=== PATIENT | female | born 1965 | race African-American/Black ===

== ENCOUNTER 2017-09-28 21:16 | Inpatient (IN) | payer MEDICARE ==
[~2017-09-28] VITALS: Ht 170.2 cm; Wt 84.6 kg
[2017-09-28 21:30] VITALS: BP 133/106
[2017-09-28] MEDS ORDERED: Aspirin Baby 81mg ORAL ONE (21:30)
[2017-09-28] MEDS ORDERED: Furosemide 40mg tab ORAL ONE (21:30)
--- NOTE | 2017-09-28 21:48 | Emergency Room Report ---
History of Present Illness General Chief Complaint: Pain Source: Patient, EMS Present Illness HPI Is a 51-year-old female with a history high blood pressure and CHF. She presents with chief complaint of weakness and leg swelling. She said she can't walk because of the swelling. His been ongoing for 4 months. Worse to the point where she can't move around anymore. She was admitted to [facility] recently and transferred [facility] a jail. She was then discharged home. She has not been taking her medication at all. Denies any fever chills. Denies any chest pain. Worse with any bleeding. She refused to take Lasix because it caused her leg to swell up. Pain is 10 out of 10. Allergies: Coded Allergies: No Known Allergies (Unverified , 09/28/17) Patient History Past Medical History: see triage record, old chart reviewed, DM, HTN, CHF Past Surgical History: other Pertinent Family History: none Social History: Denies: smoking Now: No Immunizations: other Reviewed Nursing Documentation: PMH: Agreed; PSxH: Agreed Nursing Documentation-PMH Past Medical History: No History, Except For Hx Cardiac Problems: Yes Hx Hypertension: Yes Review of Systems Eye: Denies: eye pain, blurred vision ENT: Denies: ear pain, nose congestion, throat swelling Respiratory: Denies: cough, shortness of breath Cardiovascular: Denies: chest pain, palpitations Gastrointestinal: Denies: abdominal pain, diarrhea, nausea, vomiting Musculoskeletal: Reports: muscle pain; Denies: back pain, joint pain Skin: Denies: rash Neurological: Denies: headache, numbness Endocrine: Denies: increased thirst, increased urine Hematologic/Lymphatic: Denies: easy bruising All Other Systems: negative except mentioned in HPI Physical Exam Vital Signs Date Time Temp Pulse Resp B/P (MAP) Pulse Ox O2 Delivery O2 Flow Rate FiO2 09/28/17 21:04 98.7 82 14 76/45 98 Room Air 98.8 vitals with hypotension. repeat without intervention was 133/82 Sp02 EP Interpretation: reviewed, normal General Appearance: well appearing, alert, obese Head: normocephalic, atraumatic Eyes: bilateral eye PERRL, bilateral eye EOMI ENT: hearing grossly normal, normal pharynx Neck: full range of motion, supple, no meningismus Respiratory: chest non-tender, lungs clear, normal breath sounds Cardiovascular #1: regular rate, rhythm, no murmur Gastrointestinal: normal bowel sounds, non tender, no mass, no organomegaly, no bruit, non-distended Musculoskeletal: back normal, normal range of motion, swelling - 3+ edema to RLE, 2+ edema to LLE Psychiatric: mood/affect normal Skin: warm/dry Medical Decision Making Diagnostic Impression: Primary Impression: Acute exacerbation of CHF (congestive heart failure) Qualified Codes: I50.9 - Heart failure, unspecified Additional Impressions: Noncompliance Hypertension Qualified Codes: I10 - Essential (primary) hypertension CKD (chronic kidney disease) Qualified Codes: N18.9 - Chronic kidney disease, unspecified Proteinuria Qualified Codes: R80.9 - Proteinuria, unspecified ER Course Patient with CHF exacerbation secondary to noncompliance. I try to convince the patient that her leg swell up because she's not taking Lasix and not the other way around. Patient adamantly refused taking Lasix so I gave her Bumex instead. I also gave her Cardizem to control her blood pressure and heart rate. No evidence of PE, dissection, pneumonia to name a few. She may have coronary event causing worsening CHF. Will admit for further workup and diuresis. I discussed the case with Dr. Mcfadden who will admit for Dr. Lopez Lab Results Impression labs with elevated BNP EKG Diagnostic Results Rate: normal Rhythm: NSR ST Segments: other - NSST changes ASA given to the pt in ED: Yes Rhythm Strip Diag. Results Rhythm Strip Time: 21:47 EP Interpretation: yes Rate: 100 Rhythm: NSR, no PVC's, no ectopy Chest X-Ray Diagnostic Results Chest X-Ray Diagnostic Results : Chest X-Ray Ordered: Yes # of Views/Limited/Complete: 1 View Indication: Shortness of Breath EP Interpretation: Yes Interpretation: no consolidation, no effusion, no pneumothorax, other - CM with chf Impression: Other - CHF Electronically Signed by: Morgan Burnett MD Last Vital Signs Date Time Temp Pulse Resp B/P (MAP) Pulse Ox O2 Delivery O2 Flow Rate FiO2 09/28/17 21:04 98.7 82 14 76/45 98 Room Air 98.8 Status: improved Disposition: ADMITTED INPATIENT Condition: Serious Scripts No Active Prescriptions or Reported Meds MORGAN BURNETT M.D. Sep 28, 2017 21:48
--- NOTE | 2017-09-28 21:59 | Diagnostic Imaging Report ---
EXAM: XR Chest, 1 View CLINICAL HISTORY: SOB TECHNIQUE: Frontal view of the chest. COMPARISON: No relevant prior studies available. FINDINGS: Lungs: Possible right lower lobe infiltrate. Pleural space: Unremarkable. No pneumothorax. Heart: Unremarkable. No cardiomegaly. Mediastinum: Unremarkable. Bones/joints: Unremarkable. IMPRESSION: Possible right lower lobe infiltrate.
[2017-09-28 22:05] LABS: BASOPHILS % (AUTO) 1.3 % (0.0-2.0); EOSINOPHILS % (AUTO) 0.6 % (0.0-3.0); HEMATOCRIT 45.1 % (37.0-47.0); HEMOGLOBIN 14.6 G/DL (12.0-16.0); LYMPHOCYTES % (AUTO) 25.2 % (20.0-45.0); MEAN CORPUSCULAR VOLUME 92 FL (80-99); MONOCYTES % (AUTO) 6.1 % (1.0-10.0); NEUTROPHILS % (AUTO) 66.8 % (45.0-75.0); PLATELET COUNT 236 K/UL (150-450); RED CELL DISTRIBUTION WIDTH 16.4 % (11.6-14.8)
[2017-09-28 22:24] LABS: ANION GAP 12 mmol/L (5-15); BLOOD UREA NITROGEN 22 mg/dL (7-18); CALCIUM 9.7 MG/DL (8.5-10.1); CARBON DIOXIDE 25 MMOL/L (21-32); CHLORIDE 105 MMOL/L (98-107); SODIUM 142 MMOL/L (136-145)
[2017-09-28 22:30] VITALS: BP 157/118
[2017-09-28 22:41] LABS: ALANINE AMINOTRANSFERASE 46 U/L (12-78); ALBUMIN 3.6 G/DL (3.4-5.0); ALKALINE PHOSPHATASE 113 U/L (46-116); ASPARTATE AMINO TRANSFERASE 19 U/L (15-37); CKMB 2.3 NG/ML (0.0-3.6); CREATINE KINASE 142 U/L (26-308)
[2017-09-28 22:43] LABS: BILIRUBIN,DIRECT 0.5 MG/DL (0.0-0.3)
[2017-09-28 22:43] LABS: APPEARANCE,URINE SLIGHTLY CLOUDY; BILIRUBIN, URINE 1+ (NEGATIVE); GLUCOSE, URINE (UA) NEGATIVE (NEGATIVE); KETONES,URINE 2+ (NEGATIVE); LEUKOCYTE ESTERASE ,URINE 1+ (NEGATIVE); NITRITE,URINE NEGATIVE (NEGATIVE); PH,URINE 5 (4.5-8.0); PROTEIN,URINE 3+ (NEGATIVE); UROBILINOGEN,URINE 1 MG/DL (0.0-1.0)
[2017-09-28 22:45] LABS: COLOR,URINE YELLOW
[2017-09-28] MEDS ORDERED: dilTIAZem HCl 25mg/5ml Inj IVP ONE (22:45)
[2017-09-28] MEDS ORDERED: Bumetanide 0.25mg/ml 4ml IV ONE (23:15)
[2017-09-29] VITALS (8 sets, daily range): BP systolic 115–152; BP diastolic 55–115
[2017-09-29] MEDS ORDERED: Norco 5mg/325mg tab ORAL PRN (03:30)
[2017-09-29] MEDS ORDERED: HYDROcodone/Acetamin 10/325 tab ORAL PRN (03:30)
[2017-09-29] MEDS ORDERED: HydrALAZINE 10mg Tab ORAL PRN (03:30)
[2017-09-29] MEDS: NovoLOG Insulin Flexpen SUBQ SCH ×4 (05:43→21:00)
[2017-09-29] MEDS ORDERED: Heparin 5000 units/ml inj SUBQ SCH (09:00)
[2017-09-29] MEDS ORDERED: Bumetanide 2.5mg/10ml Inj IVP SCH (09:00)
[2017-09-29] MEDS: Bumetanide 0.25mg/ml 4ml IV SCH ×2 (09:21→21:00)
--- NOTE | 2017-09-29 11:20 | Cardiology Report ---
APPROVED REPORT EXAM: Two-dimensional and M-mode echocardiogram with Doppler and color Doppler. INDICATION Congestive Heart Failure M-Mode DIMENSIONS IVSd1.2 (0.7-1.1cm)Left Atrium (MM)4.8 (1.6-4.0cm) LVDd5.1 (3.5-5.6cm)Aortic Root2.6 (2.0-3.7cm) PWd1.0 (0.7-1.1cm)Aortic Cusp Exc.1.8 (1.5-2.0cm) LVDs4.6 (2.5-4.0cm) PWs1.1 cm Technically difficult study due to patient resistance. Study quality precludes accurate assessment of regional wall motion. Normal left ventricular chamber size. Increased apical echoes thrombus is not excluded . Severe global left ventricular hypokinesis. Left ventricular ejection fraction estimated to be 25-30 %. Mild left ventricular hypertrophy. Large posterior pleural effusion. Small pericardial effusion. Mild bi-atrial enlargement. Right ventricular chamber sizes is within normal limits. Mild focal aortic valve sclerosis with adequate cusp excursion. Mildly thickened mitral valve leaflets with normal excursion. Mild mitral annulus and aortic root calcification. Normal pulmonic valve structure. Normal tricuspid valve structure. IVC dilated at 2.4 cm without physiological collapse, estimated RAP is 15 mmHg. Doctor and RNVicente notified on 09/29/17. A color flow and spectral Doppler study was performed and revealed: Trace aortic insufficiency. Severe mitral regurgitation. Left ventricular diastolic function could not be determined due to arrhythmia. Severe tricuspid regurgitation. Tricuspid systolic velocities suggests peak right ventricular systolic pressure of 77 mmHg, consistent with severe pulmonary hypertension. Mild pulmonic regurgitation present.
--- NOTE | 2017-09-29 11:36 | Cardiology Progress Note ---
Assessment/Plan Assessment/Plan acute on chronic chf med non complaince increaed apical echo possible lv thrombus htn renal insuf pulm htn mr sig tr sig need na fluid restriction which i discussed iwth pt she dose no want to take lasix in getting bumex will need acie if cr and k allow eventually will need bb once chf is better repeat labs gabe need to consider anticoagulation for now but need to see if she has some way of complyign with fu need for anticoag monitoring otherwise may need to get injectable Lovenox daily needs health inurance for meds she says has one s/w to explore [id number] Objective Last 24 Hour Vital Signs Date Time Temp Pulse Resp B/P (MAP) Pulse Ox O2 Delivery O2 Flow Rate FiO2 09/29/17 09:00 Nasal Cannula 3.0 09/29/17 08:00 107 09/29/17 08:00 97.5 105 22 121/55 (77) 99 97.5 09/29/17 04:00 101 09/29/17 04:00 98.0 100 22 135/110 (118) 98 98.0 09/29/17 03:00 Nasal Cannula 3.0 09/29/17 02:40 111 09/29/17 02:36 97.9 103 24 148/115 (126) 98 97.9 09/29/17 02:35 98.2 99 18 139/105 98 Room Air 98.2 09/29/17 01:30 98.2 99 18 139/105 98 Room Air 98.2 09/29/17 00:30 98.8 96 18 152/114 97 Room Air 98.8 09/28/17 22:54 122 157/119 09/28/17 22:30 98.8 122 18 157/118 97 Room Air 98.8 09/28/17 21:30 98.8 108 18 133/106 96 Room Air 98.8 09/28/17 21:04 98.7 82 14 76/45 98 Room Air 98.8 Intake and Output 09/28/17 09/29/17 19:00 07:00 Output Total 750 ml Balance -750 ml Output Urine Total 750 ml # Voids 1 Laboratory Tests Test 09/28/17 21:40 09/28/17 22:15 09/29/17 04:20 White Blood Count 6.0 K/UL (4.8-10.8) Red Blood Count 4.90 M/UL (4.20-5.40) Hemoglobin 14.6 G/DL (12.0-16.0) Hematocrit 45.1 % (37.0-47.0) Mean Corpuscular Volume 92 FL (80-99) Mean Corpuscular Hemoglobin 29.7 PG (27.0-31.0) Mean Corpuscular Hemoglobin Concent 32.3 G/DL (32.0-36.0) Red Cell Distribution Width 16.4 % (11.6-14.8) H Platelet Count 236 K/UL (150-450) Mean Platelet Volume 7.4 FL (6.5-10.1) Neutrophils (%) (Auto) 66.8 % (45.0-75.0) Lymphocytes (%) (Auto) 25.2 % (20.0-45.0) Monocytes (%) (Auto) 6.1 % (1.0-10.0) Eosinophils (%) (Auto) 0.6 % (0.0-3.0) Basophils (%) (Auto) 1.3 % (0.0-2.0) Sodium Level 142 MMOL/L (136-145) Potassium Level 4.0 MMOL/L (3.5-5.1) Chloride Level 105 MMOL/L (98-107) Carbon Dioxide Level 25 MMOL/L (21-32) Anion Gap 12 mmol/L (5-15) Blood Urea Nitrogen 22 mg/dL (7-18) H Creatinine 2.0 MG/DL (0.55-1.30) H Estimat Glomerular Filtration Rate 26.2 mL/min (>60) Glucose Level 108 MG/DL (74-106) H Calcium Level 9.7 MG/DL (8.5-10.1) Total Bilirubin 2.0 MG/DL (0.2-1.0) H Direct Bilirubin 0.5 MG/DL (0.0-0.3) H Aspartate Amino Transf (AST/SGOT) 19 U/L (15-37) Alanine Aminotransferase (ALT/SGPT) 46 U/L (12-78) Alkaline Phosphatase 113 U/L (46-116) Total Creatine Kinase 142 U/L (26-308) Creatine Kinase MB 2.3 NG/ML (0.0-3.6) Creatine Kinase MB Relative Index 1.6 Troponin I 0.049 ng/mL (0.000-0.056) Pro-B-Type Natriuretic Peptide 3926 pg/mL (0-125) H Total Protein 7.2 G/DL (6.4-8.2) Albumin 3.6 G/DL (3.4-5.0) Globulin 3.6 g/dL Albumin/Globulin Ratio 1.0 (1.0-2.7) Urine Color Yellow Urine Appearance Slightly cloudy Urine pH 5 (4.5-8.0) Urine Specific [place] 1.025 (1.005-1.035) Urine Protein 3+ (NEGATIVE) H Urine Glucose (UA) Negative (NEGATIVE) Urine Ketones 2+ (NEGATIVE) H Urine Occult Blood 3+ (NEGATIVE) H Urine Nitrite Negative (NEGATIVE) Urine Bilirubin 1+ (NEGATIVE) H Urine Ictotest Urine Urobilinogen 1 MG/DL (0.0-1.0) H Urine Leukocyte Esterase 1+ (NEGATIVE) H Urine RBC 2-4 /HPF (0 - 2) H Urine WBC 0-2 /HPF (0 - 2) Urine Squamous Epithelial Cells Few /LPF (NONE/OCC) Urine Amorphous Sediment Many /LPF (NONE) H Urine Bacteria Few /HPF (NONE) Urine Opiates Screen Negative (NEGATIVE) Urine Barbiturates Screen Negative (NEGATIVE) Phencyclidine (PCP) Screen Negative (NEGATIVE) Urine Amphetamines Screen Negative (NEGATIVE) Urine Benzodiazepines Screen Negative (NEGATIVE) Urine Cocaine Screen Negative (NEGATIVE) Urine Marijuana (THC) Screen Negative (NEGATIVE) Phosphorus Level 5.0 MG/DL (2.5-4.9) H Serafin Eagle MD Sep 29, 2017 11:36
[2017-09-29] MEDS ORDERED: Heparin 5000 units/ml inj IV SCH ×2 (11:45→13:30)
[2017-09-29 12:22] LABS: BASOPHILS % (AUTO) 0.5 % (0.0-2.0); EOSINOPHILS % (AUTO) 0.6 % (0.0-3.0); HEMATOCRIT 42.2 % (37.0-47.0); HEMOGLOBIN 13.5 G/DL (12.0-16.0); LYMPHOCYTES % (AUTO) 17.3 % (20.0-45.0); MEAN CORPUSCULAR VOLUME 93 FL (80-99); MONOCYTES % (AUTO) 6.2 % (1.0-10.0); NEUTROPHILS % (AUTO) 75.4 % (45.0-75.0); PLATELET COUNT 234 K/UL (150-450); RED BLOOD COUNT 4.54 M/UL (4.20-5.40); WHITE BLOOD COUNT 6.2 K/UL (4.8-10.8)
[2017-09-29] MEDS: HydrALAZINE 10mg Tab ORAL SCH ×2 (12:23→18:03)
[2017-09-29] MEDS: Imdur 30mg tab ORAL SCH (12:23)
[2017-09-29] MEDS ORDERED: Heparin 25,000u/D5W 500ml 500 ML IV SCH (13:00)
[2017-09-29] MEDS ORDERED: Aspirin Baby 81mg ORAL SCH (13:30)
--- NOTE | 2017-09-29 14:12 | Diagnostic Imaging Report ---
APPROVED REPORT CPT Code: 03248 Present Symptoms Comments: RIGHT LEG PAIN AND SWELLING. RIGHT LEG: Venous imaging reveals a patent deep venous system. There is no evidence of thrombus within the femoral, popliteal or tibial segments. The greater saphenous vein is also within normal limits. Doppler indicates normal spontaneous flow within these segments.
--- NOTE | 2017-09-29 14:24 | History and Physical ---
History of Present Illness General Date patient seen: Sep 29, 2017 Reason for Hospitalization: Pain Present Illness HPI Per ED: Is a 51-year-old female with a history high blood pressure and CHF. She presents with chief complaint of weakness and leg swelling. She said she can't walk because of the swelling. His been ongoing for 4 months. Worse to the point where she can't move around anymore. She was admitted to [facility] recently and transferred to a fdc. She was then discharged home. She has not been taking her medication at all. Denies any fever chills. Denies any chest pain. Worse with any bleeding. She refused to take Lasix because it caused her leg to swell up. Pain is 10 out of 10. Above corroborated with pt. Allergies: Coded Allergies: No Known Allergies (Unverified , 09/28/17) Medication History No Active Prescriptions or Reported Meds Patient History Healthcare decision maker Resuscitation status Full Code Advanced Directive on File Physical Exam Last 24 Hour Vital Signs Date Time Temp Pulse Resp B/P (MAP) Pulse Ox O2 Delivery O2 Flow Rate FiO2 09/29/17 12:23 124/94 09/29/17 12:23 124/94 09/29/17 12:00 97.0 112 22 124/94 (104) 97 97.0 09/29/17 12:00 112 09/29/17 09:00 Nasal Cannula 3.0 09/29/17 08:00 107 09/29/17 08:00 97.5 105 22 121/55 (77) 99 97.5 09/29/17 04:00 101 09/29/17 04:00 98.0 100 22 135/110 (118) 98 98.0 09/29/17 03:00 Nasal Cannula 3.0 09/29/17 02:40 111 09/29/17 02:36 97.9 103 24 148/115 (126) 98 97.9 09/29/17 02:35 98.2 99 18 139/105 98 Room Air 98.2 09/29/17 01:30 98.2 99 18 139/105 98 Room Air 98.2 09/29/17 00:30 98.8 96 18 152/114 97 Room Air 98.8 09/28/17 22:54 122 157/119 09/28/17 22:30 98.8 122 18 157/118 97 Room Air 98.8 09/28/17 21:30 98.8 108 18 133/106 96 Room Air 98.8 09/28/17 21:04 98.7 82 14 76/45 98 Room Air 98.8 Intake and Output 09/28/17 09/29/17 19:00 07:00 Output Total 750 ml Balance -750 ml Output Urine Total 750 ml # Voids 1 Laboratory Tests Test 09/28/17 21:40 09/28/17 22:15 09/29/17 04:20 09/29/17 12:05 White Blood Count 6.0 K/UL (4.8-10.8) 6.2 K/UL (4.8-10.8) Red Blood Count 4.90 M/UL (4.20-5.40) 4.54 M/UL (4.20-5.40) Hemoglobin 14.6 G/DL (12.0-16.0) 13.5 G/DL (12.0-16.0) Hematocrit 45.1 % (37.0-47.0) 42.2 % (37.0-47.0) Mean Corpuscular Volume 92 FL (80-99) 93 FL (80-99) Mean Corpuscular Hemoglobin 29.7 PG (27.0-31.0) 29.7 PG (27.0-31.0) Mean Corpuscular Hemoglobin Concent 32.3 G/DL (32.0-36.0) 32.0 G/DL (32.0-36.0) Red Cell Distribution Width 16.4 % (11.6-14.8) H 16.0 % (11.6-14.8) H Platelet Count 236 K/UL (150-450) 234 K/UL (150-450) Mean Platelet Volume 7.4 FL (6.5-10.1) 7.3 FL (6.5-10.1) Neutrophils (%) (Auto) 66.8 % (45.0-75.0) 75.4 % (45.0-75.0) H Lymphocytes (%) (Auto) 25.2 % (20.0-45.0) 17.3 % (20.0-45.0) L Monocytes (%) (Auto) 6.1 % (1.0-10.0) 6.2 % (1.0-10.0) Eosinophils (%) (Auto) 0.6 % (0.0-3.0) 0.6 % (0.0-3.0) Basophils (%) (Auto) 1.3 % (0.0-2.0) 0.5 % (0.0-2.0) Sodium Level 142 MMOL/L (136-145) Potassium Level 4.0 MMOL/L (3.5-5.1) Chloride Level 105 MMOL/L (98-107) Carbon Dioxide Level 25 MMOL/L (21-32) Anion Gap 12 mmol/L (5-15) Blood Urea Nitrogen 22 mg/dL (7-18) H Creatinine 2.0 MG/DL (0.55-1.30) H Estimat Glomerular Filtration Rate 26.2 mL/min (>60) Glucose Level 108 MG/DL (74-106) H Calcium Level 9.7 MG/DL (8.5-10.1) Total Bilirubin 2.0 MG/DL (0.2-1.0) H Direct Bilirubin 0.5 MG/DL (0.0-0.3) H Aspartate Amino Transf (AST/SGOT) 19 U/L (15-37) Alanine Aminotransferase (ALT/SGPT) 46 U/L (12-78) Alkaline Phosphatase 113 U/L (46-116) Total Creatine Kinase 142 U/L (26-308) Creatine Kinase MB 2.3 NG/ML (0.0-3.6) Creatine Kinase MB Relative Index 1.6 Troponin I 0.049 ng/mL (0.000-0.056) Pro-B-Type Natriuretic Peptide 3926 pg/mL (0-125) H Total Protein 7.2 G/DL (6.4-8.2) Albumin 3.6 G/DL (3.4-5.0) Globulin 3.6 g/dL Albumin/Globulin Ratio 1.0 (1.0-2.7) Urine Color Yellow Urine Appearance Slightly cloudy Urine pH 5 (4.5-8.0) Urine Specific [place] 1.025 (1.005-1.035) Urine Protein 3+ (NEGATIVE) H Urine Glucose (UA) Negative (NEGATIVE) Urine Ketones 2+ (NEGATIVE) H Urine Occult Blood 3+ (NEGATIVE) H Urine Nitrite Negative (NEGATIVE) Urine Bilirubin 1+ (NEGATIVE) H Urine Ictotest Urine Urobilinogen 1 MG/DL (0.0-1.0) H Urine Leukocyte Esterase 1+ (NEGATIVE) H Urine RBC 2-4 /HPF (0 - 2) H Urine WBC 0-2 /HPF (0 - 2) Urine Squamous Epithelial Cells Few /LPF (NONE/OCC) Urine Amorphous Sediment Many /LPF (NONE) H Urine Bacteria Few /HPF (NONE) Urine Opiates Screen Negative (NEGATIVE) Urine Barbiturates Screen Negative (NEGATIVE) Phencyclidine (PCP) Screen Negative (NEGATIVE) Urine Amphetamines Screen Negative (NEGATIVE) Urine Benzodiazepines Screen Negative (NEGATIVE) Urine Cocaine Screen Negative (NEGATIVE) Urine Marijuana (THC) Screen Negative (NEGATIVE) Phosphorus Level 5.0 MG/DL (2.5-4.9) H Activated Partial Thromboplast Time 26 SEC (23-33) Height (Feet): 5 Height (Inches): 7.00 Weight (Pounds): 108 Medications Current Medications Medications (Trade) Dose Ordered Sig/Sonam Route PRN Reason Start Time Stop Time Status Last Admin Dose Admin Acetaminophen (Tylenol) 650 mg Q6HR PRN ORAL Mild Pain (Pain Scale 1-3) 09/29/17 03:30 10/29/17 03:29 09/29/17 12:23 Acetaminophen/ Hydrocodone Bitart ([place] 10/325) 1 tab Q6HR PRN ORAL For Pain 09/29/17 03:30 10/06/17 03:29 Acetaminophen/ Hydrocodone Bitart ([place] 5/325) 1 tab Q6H PRN ORAL For Pain 09/29/17 03:30 10/06/17 03:29 Aspirin (ASA) 81 mg ONCE ORAL 09/29/17 13:30 09/29/17 14:30 09/29/17 13:29 Bumetanide (Bumex) 1 mg Q12HR IV 09/29/17 09:15 10/29/17 09:14 09/29/17 09:21 Dextrose (Dextrose 50%) 25 ml STAT PRN IV Hypoglycemia 09/29/17 03:30 10/29/17 03:29 Dextrose (Dextrose 50%) 50 ml STAT PRN IV Hypoglycemia 09/29/17 03:30 10/29/17 03:29 Heparin Sodium (Porcine) (Heparin 5000 units/ml) 3,000 units ONCE IV 09/29/17 13:30 09/29/17 15:00 Heparin Sodium/ Dextrose 500 ml @ 17.676 mls/ hr adjust per protocol IV 09/29/17 13:00 10/29/17 12:59 Hydralazine HCl (Apresoline) 10 mg Q6HR ORAL 09/29/17 12:00 10/29/17 11:59 09/29/17 12:23 Hydralazine HCl (Apresoline) 10 mg Q6HR PRN ORAL For High Blood Pressure 09/29/17 03:30 10/29/17 03:29 Insulin Aspart (NovoLOG) BEFORE MEALS AND HS SUBQ 09/29/17 06:30 10/29/17 06:29 09/29/17 11:14 Isosorbide Mononitrate (Imdur) 30 mg DAILY ORAL 09/29/17 12:00 10/29/17 11:59 09/29/17 12:23 Metolazone (Zaroxolyn) 2.5 mg DAILY@0830 ORAL 09/30/17 08:30 10/30/17 08:29 Ondansetron HCl (Zofran) 4 mg Q4HR PRN IVP Nausea & Vomiting 09/29/17 03:30 10/29/17 03:29 Assessment/Plan Assessment/Plan #CHF, EF < 30 % - due to med non compliance #increased apical echo possible lv thrombus #KEELY - suspect superimpose on CKD #Pleural effusion - on TTE, due to CHF #Possible RLL PNA - on CXR, ? effusion vs infiltrate #Possible UTI - dirty catch #DM2 #HTN - admit to in pt - cardiology consult - heparin gtt per pharmacy - trend tn/ekg - TTE w/ reduced ef and - diuresis per cards: bumex and metolazone - asa - dilt, imdur - pulm consult - start CAP coverage w/ ceftriaxone and azithro - UTI coverage w/ ceftriaxone - resp & urine cx - supplemental o2 prn - insulin sliding scale achs - dm/cardiac diet - dvt ppx: hep gtt - full code anticipate pt will require in pt mgt x 1-2 days, DC to SNF once stable I spent 68 min on this case and 48 min on counseling and or are coordination time of note may not reflect time of clinical encounter Mejia Ferguson MD Sep 29, 2017 14:24
--- NOTE | 2017-09-29 15:28 | Pulmonology Progress Note ---
Assessment/Plan Assessment/Plan Pulmonary Consultation Note Noted to have Pleural Effusion, CHF HPI Is a 51-year-old female with a history high blood pressure and CHF. She presents with chief complaint of weakness and leg swelling. She said she can't walk because of the swelling. His been ongoing for 4 months. Worse to the point where she can't move around anymore. She was admitted to [facility] recently and transferred to a care home. She was then discharged home. She has not been taking her medication at all. Denies any fever chills. Denies any chest pain. Worse with any bleeding. She refused to take Lasix because it caused her leg to swell up. Pain is 10 out of 10. Above corroborated with pt. Allergies: Coded Allergies: No Known Allergies (Unverified , 09/28/17) Medication History No Active Prescriptions or Reported Meds Patient History Healthcare decision maker Resuscitation status Full Code Advanced Directive on File Physical Exam Last 24 Hour Vital Signs Date Time Temp Pulse Resp B/P (MAP) Pulse Ox O2 Delivery O2 Flow Rate FiO2 09/29/17 12:23 124/94 09/29/17 12:23 124/94 09/29/17 12:00 97.0 112 22 124/94 (104) 97 97.0 09/29/17 12:00 112 09/29/17 09:00 Nasal Cannula 3.0 09/29/17 08:00 107 09/29/17 08:00 97.5 105 22 121/55 (77) 99 97.5 09/29/17 04:00 101 09/29/17 04:00 98.0 100 22 135/110 (118) 98 98.0 09/29/17 03:00 Nasal Cannula 3.0 09/29/17 02:40 111 09/29/17 02:36 97.9 103 24 148/115 (126) 98 97.9 09/29/17 02:35 98.2 99 18 139/105 98 Room Air 98.2 09/29/17 01:30 98.2 99 18 139/105 98 Room Air 98.2 09/29/17 00:30 98.8 96 18 152/114 97 Room Air 98.8 09/28/17 22:54 122 157/119 09/28/17 22:30 98.8 122 18 157/118 97 Room Air 98.8 09/28/17 21:30 98.8 108 18 133/106 96 Room Air 98.8 09/28/17 21:04 98.7 82 14 76/45 98 Room Air 98.8 Intake and Output 09/28/17 09/29/17 19:00 07:00 Output Total 750 ml Balance -750 ml Output Urine Total 750 ml # Voids 1 Laboratory Tests Test 09/28/17 21:40 09/28/17 22:15 09/29/17 04:20 09/29/17 12:05 White Blood Count 6.0 K/UL (4.8-10.8) 6.2 K/UL (4.8-10.8) Red Blood Count 4.90 M/UL (4.20-5.40) 4.54 M/UL (4.20-5.40) Hemoglobin 14.6 G/DL (12.0-16.0) 13.5 G/DL (12.0-16.0) Hematocrit 45.1 % (37.0-47.0) 42.2 % (37.0-47.0) Mean Corpuscular Volume 92 FL (80-99) 93 FL (80-99) Mean Corpuscular Hemoglobin 29.7 PG (27.0-31.0) 29.7 PG (27.0-31.0) Mean Corpuscular Hemoglobin Concent 32.3 G/DL (32.0-36.0) 32.0 G/DL (32.0-36.0) Red Cell Distribution Width 16.4 % (11.6-14.8) H 16.0 % (11.6-14.8) H Platelet Count 236 K/UL (150-450) 234 K/UL (150-450) Mean Platelet Volume 7.4 FL (6.5-10.1) 7.3 FL (6.5-10.1) Neutrophils (%) (Auto) 66.8 % (45.0-75.0) 75.4 % (45.0-75.0) H Lymphocytes (%) (Auto) 25.2 % (20.0-45.0) 17.3 % (20.0-45.0) L Monocytes (%) (Auto) 6.1 % (1.0-10.0) 6.2 % (1.0-10.0) Eosinophils (%) (Auto) 0.6 % (0.0-3.0) 0.6 % (0.0-3.0) Basophils (%) (Auto) 1.3 % (0.0-2.0) 0.5 % (0.0-2.0) Sodium Level 142 MMOL/L (136-145) Potassium Level 4.0 MMOL/L (3.5-5.1) Chloride Level 105 MMOL/L (98-107) Carbon Dioxide Level 25 MMOL/L (21-32) Anion Gap 12 mmol/L (5-15) Blood Urea Nitrogen 22 mg/dL (7-18) H Creatinine 2.0 MG/DL (0.55-1.30) H Estimat Glomerular Filtration Rate 26.2 mL/min (>60) Glucose Level 108 MG/DL (74-106) H Calcium Level 9.7 MG/DL (8.5-10.1) Total Bilirubin 2.0 MG/DL (0.2-1.0) H Direct Bilirubin 0.5 MG/DL (0.0-0.3) H Aspartate Amino Transf (AST/SGOT) 19 U/L (15-37) Alanine Aminotransferase (ALT/SGPT) 46 U/L (12-78) Alkaline Phosphatase 113 U/L (46-116) Total Creatine Kinase 142 U/L (26-308) Creatine Kinase MB 2.3 NG/ML (0.0-3.6) Creatine Kinase MB Relative Index 1.6 Troponin I 0.049 ng/mL (0.000-0.056) Pro-B-Type Natriuretic Peptide 3926 pg/mL (0-125) H Total Protein 7.2 G/DL (6.4-8.2) Albumin 3.6 G/DL (3.4-5.0) Globulin 3.6 g/dL Albumin/Globulin Ratio 1.0 (1.0-2.7) Urine Color Yellow Urine Appearance Slightly cloudy Urine pH 5 (4.5-8.0) Urine Specific [place] 1.025 (1.005-1.035) Urine Protein 3+ (NEGATIVE) H Urine Glucose (UA) Negative (NEGATIVE) Urine Ketones 2+ (NEGATIVE) H Urine Occult Blood 3+ (NEGATIVE) H Urine Nitrite Negative (NEGATIVE) Urine Bilirubin 1+ (NEGATIVE) H Urine Ictotest Urine Urobilinogen 1 MG/DL (0.0-1.0) H Urine Leukocyte Esterase 1+ (NEGATIVE) H Urine RBC 2-4 /HPF (0 - 2) H Urine WBC 0-2 /HPF (0 - 2) Urine Squamous Epithelial Cells Few /LPF (NONE/OCC) Urine Amorphous Sediment Many /LPF (NONE) H Urine Bacteria Few /HPF (NONE) Urine Opiates Screen Negative (NEGATIVE) Urine Barbiturates Screen Negative (NEGATIVE) Phencyclidine (PCP) Screen Negative (NEGATIVE) Urine Amphetamines Screen Negative (NEGATIVE) Urine Benzodiazepines Screen Negative (NEGATIVE) Urine Cocaine Screen Negative (NEGATIVE) Urine Marijuana (THC) Screen Negative (NEGATIVE) Phosphorus Level 5.0 MG/DL (2.5-4.9) H Activated Partial Thromboplast Time 26 SEC (23-33) Height (Feet): 5 Height (Inches): 7.00 Weight (Pounds): 108 Medications Current Medications Medications (Trade) Dose Ordered Sig/Sonam Route PRN Reason Start Time Stop Time Status Last Admin Dose Admin Acetaminophen (Tylenol) 650 mg Q6HR PRN ORAL Mild Pain (Pain Scale 1-3) 09/29/17 03:30 10/29/17 03:29 09/29/17 12:23 Acetaminophen/ Hydrocodone Bitart ([place] 10/325) 1 tab Q6HR PRN ORAL For Pain 09/29/17 03:30 10/06/17 03:29 Acetaminophen/ Hydrocodone Bitart ([place] 5/325) 1 tab Q6H PRN ORAL For Pain 09/29/17 03:30 10/06/17 03:29 Aspirin (ASA) 81 mg ONCE ORAL 09/29/17 13:30 09/29/17 14:30 09/29/17 13:29 Bumetanide (Bumex) 1 mg Q12HR IV 09/29/17 09:15 10/29/17 09:14 09/29/17 09:21 Dextrose (Dextrose 50%) 25 ml STAT PRN IV Hypoglycemia 09/29/17 03:30 10/29/17 03:29 Dextrose (Dextrose 50%) 50 ml STAT PRN IV Hypoglycemia 09/29/17 03:30 10/29/17 03:29 Heparin Sodium (Porcine) (Heparin 5000 units/ml) 3,000 units ONCE IV 09/29/17 13:30 09/29/17 15:00 Heparin Sodium/ Dextrose 500 ml @ 17.676 mls/ hr adjust per protocol IV 09/29/17 13:00 10/29/17 12:59 Hydralazine HCl (Apresoline) 10 mg Q6HR ORAL 09/29/17 12:00 10/29/17 11:59 09/29/17 12:23 Hydralazine HCl (Apresoline) 10 mg Q6HR PRN ORAL For High Blood Pressure 09/29/17 03:30 10/29/17 03:29 Insulin Aspart (NovoLOG) BEFORE MEALS AND HS SUBQ 09/29/17 06:30 10/29/17 06:29 09/29/17 11:14 Isosorbide Mononitrate (Imdur) 30 mg DAILY ORAL 09/29/17 12:00 10/29/17 11:59 09/29/17 12:23 Metolazone (Zaroxolyn) 2.5 mg DAILY@0830 ORAL 09/30/17 08:30 10/30/17 08:29 Ondansetron HCl (Zofran) 4 mg Q4HR PRN IVP Nausea & Vomiting 09/29/17 03:30 10/29/17 03:29 Assessment/Plan Assessment/Plan #CHF, EF < 30 % - due to med non compliance #increased apical echo possible lv thrombus #KEELY - suspect superimpose on CKD #Pleural effusion - on TTE, due to CHF #Possible RLL PNA - on CXR, ? effusion vs infiltrate #Possible UTI - dirty catch #DM2 #HTN - heparin gtt per pharmacy - trend labs/ekg - await TTE - diuresis per cards: bumex and metolazone - Agree CAP coverage w/ ceftriaxone and azithro - resp & urine cx - supplemental o2 prn - insulin sliding scale achs - dm/cardiac diet - dvt ppx: hep gtt - full code - Consider Thoracentesis if effusion does not improve on diuresis Subjective ROS Limited/Unobtainable: No Respiratory: Reports: shortness of breath Allergies: Coded Allergies: No Known Allergies (Unverified , 09/28/17) Objective Last 24 Hour Vital Signs Date Time Temp Pulse Resp B/P (MAP) Pulse Ox O2 Delivery O2 Flow Rate FiO2 09/29/17 12:23 124/94 09/29/17 12:23 124/94 09/29/17 12:00 97.0 112 22 124/94 (104) 97 97.0 09/29/17 12:00 112 09/29/17 09:00 Nasal Cannula 3.0 09/29/17 08:00 107 09/29/17 08:00 97.5 105 22 121/55 (77) 99 97.5 09/29/17 04:00 101 09/29/17 04:00 98.0 100 22 135/110 (118) 98 98.0 09/29/17 03:00 Nasal Cannula 3.0 09/29/17 02:40 111 09/29/17 02:36 97.9 103 24 148/115 (126) 98 97.9 09/29/17 02:35 98.2 99 18 139/105 98 Room Air 98.2 09/29/17 01:30 98.2 99 18 139/105 98 Room Air 98.2 09/29/17 00:30 98.8 96 18 152/114 97 Room Air 98.8 09/28/17 22:54 122 157/119 09/28/17 22:30 98.8 122 18 157/118 97 Room Air 98.8 09/28/17 21:30 98.8 108 18 133/106 96 Room Air 98.8 09/28/17 21:04 98.7 82 14 76/45 98 Room Air 98.8 Intake and Output 09/28/17 09/29/17 19:00 07:00 Output Total 750 ml Balance -750 ml Output Urine Total 750 ml # Voids 1 Laboratory Tests 09/28/17 21:40: White Blood Count 6.0, Red Blood Count 4.90, Hemoglobin 14.6, Hematocrit 45.1, Mean Corpuscular Volume 92, Mean Corpuscular Hemoglobin 29.7, Mean Corpuscular Hemoglobin Concent 32.3, Red Cell Distribution Width 16.4H, Platelet Count 236, Mean Platelet Volume 7.4, Neutrophils (%) (Auto) 66.8, Lymphocytes (%) (Auto) 25.2, Monocytes (%) (Auto) 6.1, Eosinophils (%) (Auto) 0.6, Basophils (%) (Auto ) 1.3, Sodium Level 142, Potassium Level 4.0, Chloride Level 105, Carbon Dioxide Level 25, Anion Gap 12, Blood Urea Nitrogen 22H, Creatinine 2.0H, Estimat Glomerular Filtration Rate 26.2, Glucose Level 108H, Calcium Level 9.7, Total Bilirubin 2.0H, Direct Bilirubin 0.5H, Aspartate Amino Transf (AST/SGOT) 19, Alanine Aminotransferase (ALT/SGPT) 46, Alkaline Phosphatase 113, Total Creatine Kinase 142, Creatine Kinase MB 2.3, Creatine Kinase MB Relative Index 1.6, Troponin I 0.049, Pro-B-Type Natriuretic Peptide 3926H, Total Protein 7.2, Albumin 3.6, Globulin 3.6, Albumin/Globulin Ratio 1.0 09/28/17 22:15: Urine Color Yellow, Urine Appearance Slightly cloudy, Urine pH 5, Urine Specific [place] 1.025, Urine Protein 3+H, Urine Glucose (UA) Negative, Urine Ketones 2+H, Urine Occult Blood 3+H, Urine Nitrite Negative, Urine Bilirubin 1+H , Urine Ictotest , Urine Urobilinogen 1H, Urine Leukocyte Esterase 1+H, Urine RBC 2-4H, Urine WBC 0-2, Urine Squamous Epithelial Cells Few, Urine Amorphous Sediment ManyH, Urine Bacteria Few, Urine Opiates Screen Negative, Urine Barbiturates Screen Negative, Phencyclidine (PCP) Screen Negative, Urine Amphetamines Screen Negative, Urine Benzodiazepines Screen Negative, Urine Cocaine Screen Negative, Urine Marijuana (THC) Screen Negative 09/29/17 04:20: Phosphorus Level 5.0H 09/29/17 12:05: White Blood Count 6.2, Red Blood Count 4.54, Hemoglobin 13.5, Hematocrit 42.2, Mean Corpuscular Volume 93, Mean Corpuscular Hemoglobin 29.7, Mean Corpuscular Hemoglobin Concent 32.0, Red Cell Distribution Width 16.0H, Platelet Count 234, Mean Platelet Volume 7.3, Neutrophils (%) (Auto) 75.4H, Lymphocytes (%) (Auto) 17.3L, Monocytes (%) (Auto) 6.2, Eosinophils (%) (Auto) 0.6, Basophils (%) (Auto ) 0.5, Activated Partial Thromboplast Time 26 Current Medications Medications (Trade) Dose Ordered Sig/Sonam Route PRN Reason Start Time Stop Time Status Last Admin Dose Admin Acetaminophen (Tylenol) 650 mg Q6HR PRN ORAL Mild Pain (Pain Scale 1-3) 09/29/17 03:30 10/29/17 03:29 09/29/17 12:23 Acetaminophen/ Hydrocodone Bitart ([place] 10/325) 1 tab Q6HR PRN ORAL For Pain 09/29/17 03:30 10/06/17 03:29 Acetaminophen/ Hydrocodone Bitart ([place] 5/325) 1 tab Q6H PRN ORAL For Pain 09/29/17 03:30 10/06/17 03:29 Azithromycin 500 mg/Dextrose 275 ml @ 275 mls/hr Q24HRS IV 09/29/17 16:00 10/05/17 16:59 Bumetanide (Bumex) 1 mg Q12HR IV 09/29/17 09:15 10/29/17 09:14 09/29/17 09:21 Ceftriaxone Sodium 1 gm/ Dextrose 55 ml @ 110 mls/hr Q24H IVPB 09/29/17 15:30 10/04/17 15:29 Dextrose (Dextrose 50%) 25 ml STAT PRN IV Hypoglycemia 09/29/17 03:30 10/29/17 03:29 Dextrose (Dextrose 50%) 50 ml STAT PRN IV Hypoglycemia 09/29/17 03:30 10/29/17 03:29 Heparin Sodium/ Dextrose 500 ml @ 17.676 mls/ hr adjust per protocol IV 09/29/17 13:00 10/29/17 12:59 Hydralazine HCl (Apresoline) 10 mg Q6HR ORAL 09/29/17 12:00 10/29/17 11:59 09/29/17 12:23 Hydralazine HCl (Apresoline) 10 mg Q6HR PRN ORAL For High Blood Pressure 09/29/17 03:30 10/29/17 03:29 Insulin Aspart (NovoLOG) BEFORE MEALS AND HS SUBQ 09/29/17 06:30 10/29/17 06:29 09/29/17 11:14 Isosorbide Mononitrate (Imdur) 30 mg DAILY ORAL 09/29/17 12:00 10/29/17 11:59 09/29/17 12:23 Lactobacillus Acidophilus (Culturelle) 1 tab TWICE A DAY ORAL 09/29/17 18:00 10/29/17 17:59 Metolazone (Zaroxolyn) 2.5 mg DAILY@0830 ORAL 09/30/17 08:30 10/30/17 08:29 Ondansetron HCl (Zofran) 4 mg Q4HR PRN IVP Nausea & Vomiting 09/29/17 03:30 10/29/17 03:29 Kofi Kim MD Sep 29, 2017 15:28
[2017-09-29] MEDS: cefTRIAXone 1 GM in D5W 55 ML IVPB SCH (16:09)
[2017-09-29] MEDS: Azithromycin 500 MG in D5W 275 ML IV SCH (16:47)
[2017-09-29 17:07] LABS: ANION GAP 10 mmol/L (5-15); BLOOD UREA NITROGEN 22 mg/dL (7-18); CARBON DIOXIDE 27 MMOL/L (21-32); CHLORIDE 106 MMOL/L (98-107); CREATININE 1.8 MG/DL (0.55-1.30); POTASSIUM 3.5 MMOL/L (3.5-5.1); SODIUM 143 MMOL/L (136-145)
[2017-09-29] MEDS: Lactobacillus-GG tablet ORAL SCH (18:02)
--- NOTE | 2017-09-29 19:30 | Consultation ---
DATE OF CONSULTATION: 09/29/2017 CARDIOLOGY CONSULTATION CONSULTING PHYSICIAN: Serafin Eagle M.D. REFERRING PHYSICIAN: Mejia Ferguson M.D. REASON FOR REFERRAL: Congestive heart failure with possible LV thrombus. HISTORY OF PRESENT ILLNESS: The patient is a 51-year-old female, who apparently has known history of congestive heart failure. Three to four months ago, she was treated at a hospital where they told her that she has had a heart attack. She said that they started her on Lasix. She took the Lasix for a number of months, but she started feeling tightness in her legs, so she has stopped taking it. Over the past 3 or 4 months, she has had increasing amounts of shortness of breath and leg swelling to the point that she is limited in her ambulation even around the house. She does wake up frequently because of shortness of breath. She uses one pillow, but she eventually has to sleep in a sitting position or sit up in a sitting position and not go to sleep. She does have some dizziness and lightheadedness. No chest pain or pressure. There is no palpitation. PAST MEDICAL HISTORY: Positive for history of congestive heart failure, borderline diabetes apparently, high blood pressure, and a questionable history of heart attack. No cancer or stroke. ALLERGIES: She denies any allergies to medications. SOCIAL HISTORY: She does not smoke or drink alcoholic beverages. REVIEW OF SYSTEMS: GASTROINTESTINAL: She denies. GENITOURINARY: She denies. PULMONARY: Negative. CONSTITUTIONAL: Negative. PHYSICAL EXAMINATION: GENERAL: Shows to be a middle-aged female, overweight. She is staying up in bed. LUNGS: Decreased breath sounds noted bilaterally. CARDIAC: Regular rhythm. Tachycardic. No heaves or thrills noted. ABDOMEN: Soft and nontender. Positive bowel sounds. EXTREMITIES: 2+ edema in the lower extremities all the way up to below the knee. NEUROLOGICAL: She is awake, alert, and responsive. LABORATORY DATA: Sodium is 142, potassium 4.0, chloride 105, bicarb 25, BUN of 22, creatinine 2.0, and glucose of 108. Calcium is 9.7 and phosphorus of 5.0. Troponin of 0.049. She had a proBNP of 3900. Albumin of 3.6. Tox screen is negative. Urinalysis negative. Chest x-ray performed in the emergency room shows possible right lower lobe infiltrate. An echocardiogram has been performed, which I personally reviewed, showed ejection fraction of 25% to 30% and global hypokinesis of significant degree. She has got significant mitral and tricuspid regurgitation and pulmonary hypertension in the 70s. ASSESSMENT AND PLAN: 1. Acute on chronic congestive heart failure. 2. Medication noncompliance. 3. Increased apical echoes, possible left ventricle thrombus. 4. Hypertension history. 5. Renal insufficiency. 6. Pulmonary hypertension. 7. Mitral regurgitation, significant. 8. Tricuspid regurgitation, significant. Dr. Ferguson, this patient was seen in cardiac consultation. The patient has acute congestive heart failure. However, it sounds like this is on top of chronic congestive heart failure, known for approximately 3 or 4 months with gradual worsening of the symptoms. Needs sodium fluid restriction, which I discussed with the patient personally. She does not want to take Lasix, but is getting Bumex and does not seem to be having a problem with that. She will need to be on this eventually will need to be on beta-blockers once congestive heart failure is better. Repeat laboratories were ordered. We will need to consider anticoagulation for now, but need to see if she has some kind of a way of compliance with the required treatment necessary for anticoagulation with oral anticoagulants, Coumadin, otherwise, needs to be injected with Lovenox on a daily basis based on her renal function. Serafin Eagle M.D. DR: SANDRINE JOB#: [id number] CC:
[2017-09-30] VITALS: BP 128/97
[2017-09-30 04:00] VITALS: BP 112/77
[2017-09-30] MEDS: HydrALAZINE 10mg Tab ORAL SCH ×4 (06:00→17:47)
[2017-09-30] MEDS: NovoLOG Insulin Flexpen SUBQ SCH ×4 (06:05→20:55)
[2017-09-30 07:12] LABS: ANION GAP 9 mmol/L (5-15); BLOOD UREA NITROGEN 21 mg/dL (7-18); CALCIUM 9.1 MG/DL (8.5-10.1); CARBON DIOXIDE 27 MMOL/L (21-32); CHLORIDE 106 MMOL/L (98-107); POTASSIUM 3.2 MMOL/L (3.5-5.1); SODIUM 142 MMOL/L (136-145)
[2017-09-30 07:14] LABS: EOSINOPHILS % (AUTO) 2.7 % (0.0-3.0); HEMATOCRIT 39.7 % (37.0-47.0); HEMOGLOBIN 12.6 G/DL (12.0-16.0); LYMPHOCYTES % (AUTO) 24.3 % (20.0-45.0); MEAN CORPUSCULAR VOLUME 93 FL (80-99); MONOCYTES % (AUTO) 6.2 % (1.0-10.0); NEUTROPHILS % (AUTO) 65.9 % (45.0-75.0); PLATELET COUNT 212 K/UL (150-450); RED BLOOD COUNT 4.27 M/UL (4.20-5.40); RED CELL DISTRIBUTION WIDTH 16.2 % (11.6-14.8)
[2017-09-30 08:00] VITALS: BP 126/89
[2017-09-30] MEDS: metOLazone 2.5 MG TAB ORAL SCH (08:35)
[2017-09-30] MEDS: Bumetanide 0.25mg/ml 4ml IV SCH ×2 (09:06→21:00)
[2017-09-30] MEDS: Imdur 30mg tab ORAL SCH (09:06)
[2017-09-30] MEDS: Lactobacillus-GG tablet ORAL SCH ×2 (09:06→17:47)
[2017-09-30] MEDS ORDERED: NS 275ml ONE (09:57)
[2017-09-30] MEDS ORDERED: Tubing IV Secondary IV ONE (09:57)
[2017-09-30 11:54] VITALS: BP 119/89
--- NOTE | 2017-09-30 13:17 | Cardiology Progress Note ---
Assessment/Plan Assessment/Plan acute on chronic chf med non complaince increaed apical echo possible lv thrombus htn renal insuf pulm htn mr sig tr sig nsvt need na fluid restriction which i discussed iwth pt she dose no want to take lasix in getting bumex Is[place]il hydralazine combination eventually will need bb once chf is better repeat labs in am i have explaine ot th ept the issue regardign possible thormbus will need to consider anticoagulation for now but need to see if she has some way of complyign with fu need for anticoag monitoring otherwise may need to get injectable Lovenox daily she inittially refused yest but agree today needs health insurance for meds she says has one s/w to explore electolyte repletion tele sinus nsvt watch cr Subjective Cardiovascular: Denies: chest pain, lightheadedness, palpitations Respiratory: Reports: shortness of breath - but some better Gastrointestinal/Abdominal: Denies: abdominal pain Genitourinary: Denies: burning Objective Last 24 Hour Vital Signs Date Time Temp Pulse Resp B/P (MAP) Pulse Ox O2 Delivery O2 Flow Rate FiO2 09/30/17 11:56 119/89 09/30/17 11:54 98.0 95 20 119/89 (99) 98 98.0 09/30/17 09:06 126/89 09/30/17 09:00 Nasal Cannula 3.0 09/30/17 08:00 112 09/30/17 08:00 97.9 115 20 126/89 (101) 99 97.9 09/30/17 06:00 112/77 09/30/17 04:00 115 09/30/17 04:00 98.0 115 19 112/77 (89) 97 98.0 09/30/17 00:00 97.3 110 22 128/97 (107) 99 97.3 09/30/17 00:00 115/80 09/29/17 21:00 Nasal Cannula 3.0 09/29/17 20:00 97.3 115 22 115/80 (92) 95 97.3 09/29/17 20:00 116 09/29/17 18:03 124/88 09/29/17 16:00 120 09/29/17 16:00 97.9 113 22 124/88 (100) 99 97.9 General Appearance: alert Neck: supple Cardiovascular: normal rate Respiratory/Chest: lungs clear - except righ base decreased bs Abdomen: normal bowel sounds, non tender, soft Extremities: moderate edema Intake and Output 09/29/17 09/30/17 19:00 07:00 Intake Total 600 ml 400 ml Balance 600 ml 400 ml Intake Oral 600 ml 400 ml # Voids 3 6 Laboratory Tests Test 09/29/17 16:00 09/30/17 06:20 Sodium Level 143 MMOL/L (136-145) 142 MMOL/L (136-145) Potassium Level 3.5 MMOL/L (3.5-5.1) 3.2 MMOL/L (3.5-5.1) L Chloride Level 106 MMOL/L (98-107) 106 MMOL/L (98-107) Carbon Dioxide Level 27 MMOL/L (21-32) 27 MMOL/L (21-32) Anion Gap 10 mmol/L (5-15) 9 mmol/L (5-15) Blood Urea Nitrogen 22 mg/dL (7-18) H 21 mg/dL (7-18) H Creatinine 1.8 MG/DL (0.55-1.30) H 2.0 MG/DL (0.55-1.30) H Estimat Glomerular Filtration Rate 35.8 mL/min (>60) 31.8 mL/min (>60) Glucose Level 105 MG/DL (74-106) 100 MG/DL (74-106) Calcium Level 9.0 MG/DL (8.5-10.1) 9.1 MG/DL (8.5-10.1) Magnesium Level 1.8 MG/DL (1.8-2.4) 1.8 MG/DL (1.8-2.4) White Blood Count 5.0 K/UL (4.8-10.8) Red Blood Count 4.27 M/UL (4.20-5.40) Hemoglobin 12.6 G/DL (12.0-16.0) Hematocrit 39.7 % (37.0-47.0) Mean Corpuscular Volume 93 FL (80-99) Mean Corpuscular Hemoglobin 29.6 PG (27.0-31.0) Mean Corpuscular Hemoglobin Concent 31.8 G/DL (32.0-36.0) L Red Cell Distribution Width 16.2 % (11.6-14.8) H Platelet Count 212 K/UL (150-450) Mean Platelet Volume 7.8 FL (6.5-10.1) Neutrophils (%) (Auto) 65.9 % (45.0-75.0) Lymphocytes (%) (Auto) 24.3 % (20.0-45.0) Monocytes (%) (Auto) 6.2 % (1.0-10.0) Eosinophils (%) (Auto) 2.7 % (0.0-3.0) Basophils (%) (Auto) 1.0 % (0.0-2.0) Troponin I 0.108 ng/mL (0.000-0.056) Pro-B-Type Natriuretic Peptide 2104 pg/mL (0-125) H Thyroid Stimulating Hormone (TSH) 2.808 uiU/mL (0.358-3.740) Microbiology Date/Time Source Procedure Growth Status 09/29/17 15:34 Urine,Clean Catch Urine Culture - Preliminary Resulted Serafin Eagle MD Sep 30, 2017 13:17
--- NOTE | 2017-09-30 14:21 | Cardiology Report ---
APPROVED REPORT EKG Measurement Heart [id number] Sinus tachycardia Anterior infarct, age undetermined Abnormal ECG
[2017-09-30] MEDS: cefTRIAXone 1 GM in D5W 55 ML IVPB SCH (14:53)
--- NOTE | 2017-09-30 15:41 | General Progress Note ---
Assessment/Plan Assessment/Plan #CHF, EF < 30 % - due to med non compliance #increased apical echo possible lv thrombus #KEELY - suspect superimpose on CKD #Pleural effusion - on TTE, due to CHF #Possible RLL PNA - on CXR, ? effusion vs infiltrate #Possible UTI - dirty catch #DM2 #HTN - cardiology consult, appreciate recs - heparin gtt per pharmacy - Tn elevated, awaiting re-draw - TTE w/ reduced ef and - diuresis per cards: bumex and metolazone - asa - dilt, imdur - pulm consult, appreciate recs - CAP coverage w/ ceftriaxone and azithro - UTI coverage w/ ceftriaxone - resp & urine cx - supplemental o2 prn - insulin sliding scale achs - dm/cardiac diet - dvt ppx: hep gtt - full code anticipate pt will require in pt mgt x 1-2 days, DC to SNF once stable I spent 44 min on this case and 26 min on counseling and or are coordination time of note may not reflect time of clinical encounter Subjective Date patient seen: Sep 30, 2017 Allergies: Coded Allergies: No Known Allergies (Unverified , 09/28/17) All Systems: reviewed and negative except above Subjective no acute events afebrile tachycardic diuresing Cr trend noted tolerating abx tolerating AC Objective Last 24 Hour Vital Signs Date Time Temp Pulse Resp B/P (MAP) Pulse Ox O2 Delivery O2 Flow Rate FiO2 09/30/17 12:00 102 09/30/17 11:56 119/89 09/30/17 11:54 98.0 95 20 119/89 (99) 98 98.0 09/30/17 09:06 126/89 09/30/17 09:00 Nasal Cannula 3.0 09/30/17 08:00 112 09/30/17 08:00 97.9 115 20 126/89 (101) 99 97.9 09/30/17 06:00 112/77 09/30/17 04:00 115 09/30/17 04:00 98.0 115 19 112/77 (89) 97 98.0 09/30/17 00:00 97.3 110 22 128/97 (107) 99 97.3 09/30/17 00:00 115/80 09/29/17 21:00 Nasal Cannula 3.0 09/29/17 20:00 97.3 115 22 115/80 (92) 95 97.3 09/29/17 20:00 116 09/29/17 18:03 124/88 09/29/17 16:00 120 09/29/17 16:00 97.9 113 22 124/88 (100) 99 97.9 Intake and Output 09/29/17 09/30/17 19:00 07:00 Intake Total 600 ml 400 ml Balance 600 ml 400 ml Intake Oral 600 ml 400 ml # Voids 3 6 Laboratory Tests 09/29/17 16:00: Sodium Level 143, Potassium Level 3.5, Chloride Level 106, Carbon Dioxide Level 27, Anion Gap 10, Blood Urea Nitrogen 22H, Creatinine 1.8H, Estimat Glomerular Filtration Rate 35.8, Glucose Level 105, Calcium Level 9.0, Magnesium Level 1.8 09/30/17 06:20: Sodium Level 142, Potassium Level 3.2L, Chloride Level 106, Carbon Dioxide Level 27, Anion Gap 9, Blood Urea Nitrogen 21H, Creatinine 2.0H, Estimat Glomerular Filtration Rate 31.8, Glucose Level 100, Calcium Level 9.1, Magnesium Level 1.8, White Blood Count 5.0, Red Blood Count 4.27, Hemoglobin 12.6, Hematocrit 39.7, Mean Corpuscular Volume 93, Mean Corpuscular Hemoglobin 29.6, Mean Corpuscular Hemoglobin Concent 31.8L, Red Cell Distribution Width 16.2H, Platelet Count 212, Mean Platelet Volume 7.8, Neutrophils (%) (Auto) 65.9 , Lymphocytes (%) (Auto) 24.3, Monocytes (%) (Auto) 6.2, Eosinophils (%) (Auto) 2.7, Basophils (%) (Auto) 1.0, Troponin I 0.108H, Pro-B-Type Natriuretic Peptide 2104H, Thyroid Stimulating Hormone (TSH) 2.808 09/30/17 15:18: Activated Partial Thromboplast Time 30 Height (Feet): 5 Height (Inches): 7.00 Weight (Pounds): 233 General Appearance: WD/WN, no apparent distress, alert EENT: PERRL/EOMI Neck: non-tender, supple Cardiovascular: normal peripheral pulses, normal rate, regular rhythm, regularly irregular, no gallop/murmur, JVD Respiratory/Chest: lungs clear, normal breath sounds, no respiratory distress, no accessory muscle use Abdomen: normal bowel sounds, non tender, soft, no organomegaly, no mass Extremities: normal range of motion, normal inspection Edema: mild edema 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
[2017-09-30] MEDS: Azithromycin 500 MG in D5W 275 ML IV SCH (15:43)
[2017-09-30] MEDS ORDERED: Heparin 25,000u/D5W 500ml 500 ML IV SCH (15:45)
[2017-09-30 16:00] VITALS: BP 113/80
[2017-09-30 20:09] VITALS: BP 142/77
[2017-09-30] MEDS: Heparin 25,000u/D5W 500ml 500 ML IV SCH (22:23)
[2017-10-01] VITALS: BP 126/91
[2017-10-01] MEDS: HydrALAZINE 10mg Tab ORAL SCH ×5 (00:35→23:41)
[2017-10-01] MEDS: Heparin 25,000u/D5W 500ml 500 ML IV SCH (03:41)
[2017-10-01 04:00] VITALS: BP 138/96
[2017-10-01] MEDS: NovoLOG Insulin Flexpen SUBQ SCH ×4 (06:06→20:36)
[2017-10-01] MEDS ORDERED: Heparin 25,000u/D5W 500ml 500 ML IV SCH ×3 (06:30→20:30)
[2017-10-01 08:00] VITALS: BP 132/90
[2017-10-01] MEDS: metOLazone 2.5 MG TAB ORAL SCH (08:49)
[2017-10-01] MEDS: Lactobacillus-GG tablet ORAL SCH ×2 (08:49→17:08)
[2017-10-01] MEDS: Bumetanide 0.25mg/ml 4ml IV SCH ×2 (08:49→20:36)
[2017-10-01] MEDS: Imdur 30mg tab ORAL SCH (08:50)
--- NOTE | 2017-10-01 09:58 | Diagnostic Imaging Report ---
Indication: Shortness of breath Technique: One view of the chest Comparison: 09/28/2017 Findings: Inspiration is suboptimal. There is equivocal mild interstitial congestion, appearing unchanged from the previous study. Possible focal patchy consolidation again demonstrated at the right lung base. Findings are overall unchanged Impression: Unchanged, over 3 days, findings as above.
[2017-10-01 12:00] VITALS: BP 127/103
--- NOTE | 2017-10-01 12:53 | Consultation ---
History of Present Illness General Date patient seen: Oct 01, 2017 Chief Complaint: Pain Present Illness HPI 51-year-old female with a history high blood pressure and CHF. the pt pw depressed mood, anhedonia and anxiety. No si/hi. No psychotic sxs. the pt is uncooperative with labs and exam. Allergies: Coded Allergies: No Known Allergies (Unverified , 09/28/17) Medication History No Active Prescriptions or Reported Meds Patient History Limited by: medical condition History Provided By: Patient, Medical Record, PMD Healthcare decision maker Resuscitation status Full Code Advanced Directive on File Past Medical/Surgical History Past Medical/Surgical History: (1) Proteinuria (2) Hypertension (3) CKD (chronic kidney disease) (4) Acute exacerbation of CHF (congestive heart failure) (5) Noncompliance (6) CHF exacerbation Review of Systems Psychiatric: Reports: prior hx, anxiety, depressed feelings, emotional problems Physical Exam General Appearance: no apparent distress, alert Neurologic: oriented x 3, responsive, depressed affect Last 24 Hour Vital Signs Date Time Temp Pulse Resp B/P (MAP) Pulse Ox O2 Delivery O2 Flow Rate FiO2 10/01/17 12:00 97.5 103 18 127/103 (111) 100 97.5 10/01/17 12:00 108 10/01/17 11:49 127/103 10/01/17 09:00 Nasal Cannula 2.0 10/01/17 08:50 132/90 10/01/17 08:00 111 10/01/17 08:00 98.6 108 20 132/90 (104) 98 98.6 10/01/17 04:00 97.9 112 20 138/96 (110) 98 97.9 10/01/17 04:00 112 10/01/17 00:35 128/69 10/01/17 00:00 98.0 100 20 126/91 (103) 98 98.0 09/30/17 23:44 98 09/30/17 20:09 Nasal Cannula 3.0 09/30/17 20:09 97.9 71 20 142/77 (98) 98 97.9 09/30/17 19:50 103 09/30/17 17:47 113/80 09/30/17 16:00 115 09/30/17 16:00 97.4 112 20 113/80 (91) 98 97.4 Intake and Output 09/30/17 10/01/17 19:00 07:00 Intake Total 800.320 ml 360 ml Balance 800.320 ml 360 ml Intake Oral 250 ml 360 ml IV Total 550.320 ml Laboratory Tests Test 09/30/17 15:18 09/30/17 16:15 09/30/17 21:25 10/01/17 04:15 Activated Partial Thromboplast Time 30 SEC (23-33) 105 SEC (23-33) H > 150 SEC (23-33) *H Troponin I 0.056 ng/mL (0.000-0.056) 0.088 ng/mL (0.000-0.056) Test 10/01/17 12:20 Activated Partial Thromboplast Time Pending Height (Feet): 5 Height (Inches): 7.00 Weight (Pounds): 232 Medications Current Medications Medications (Trade) Dose Ordered Sig/Sonam Route PRN Reason Start Time Stop Time Status Last Admin Dose Admin Acetaminophen (Tylenol) 650 mg Q6HR PRN ORAL Mild Pain (Pain Scale 1-3) 09/29/17 03:30 10/29/17 03:29 09/29/17 12:23 Acetaminophen/ Hydrocodone Bitart ([place] 10/325) 1 tab Q6HR PRN ORAL For Pain 09/29/17 03:30 10/06/17 03:29 Acetaminophen/ Hydrocodone Bitart ([place] 5/325) 1 tab Q6H PRN ORAL For Pain 09/29/17 03:30 10/06/17 03:29 Azithromycin 500 mg/Dextrose 275 ml @ 275 mls/hr Q24HRS IV 09/29/17 16:00 10/05/17 16:59 09/30/17 15:43 Bumetanide (Bumex) 1 mg Q12HR IV 09/29/17 09:15 10/29/17 09:14 10/01/17 08:49 Ceftriaxone Sodium 1 gm/ Dextrose 55 ml @ 110 mls/hr Q24H IVPB 09/29/17 15:30 10/04/17 15:29 09/30/17 14:53 Dextrose (Dextrose 50%) 25 ml STAT PRN IV Hypoglycemia 09/29/17 03:30 10/29/17 03:29 Dextrose (Dextrose 50%) 50 ml STAT PRN IV Hypoglycemia 09/29/17 03:30 10/29/17 03:29 Heparin Sodium/ Dextrose 500 ml @ 25.392 mls/ hr adjust per protocol IV 10/01/17 06:30 10/31/17 06:29 10/01/17 06:18 Hydralazine HCl (Apresoline) 10 mg Q6HR ORAL 09/29/17 12:00 10/29/17 11:59 10/01/17 11:49 Hydralazine HCl (Apresoline) 10 mg Q6HR PRN ORAL For High Blood Pressure 09/29/17 03:30 10/29/17 03:29 Insulin Aspart (NovoLOG) BEFORE MEALS AND HS SUBQ 09/29/17 06:30 10/29/17 06:29 10/01/17 11:32 Isosorbide Mononitrate (Imdur) 30 mg DAILY ORAL 09/29/17 12:00 10/29/17 11:59 10/01/17 08:50 Lactobacillus Acidophilus (Culturelle) 1 tab TWICE A DAY ORAL 09/29/17 18:00 10/29/17 17:59 10/01/17 08:49 Metolazone (Zaroxolyn) 2.5 mg DAILY@0830 ORAL 09/30/17 08:30 10/30/17 08:29 10/01/17 08:49 Ondansetron HCl (Zofran) 4 mg Q4HR PRN IVP Nausea & Vomiting 09/29/17 03:30 10/29/17 03:29 Assessment/Plan Assessment/Plan MDD Encephalopathy -cymbalta 30mg qam -seroquel 25mg qhs -provided ro/Peggy Scott MD Oct 01, 2017 12:53
--- NOTE | 2017-10-01 13:51 | General Progress Note ---
Assessment/Plan Status: progressing Assessment/Plan #CHF exacerbation, acute on chronic systolic heart failure, EF < 30 % - due to med non compliance #increased apical echo possible lv thrombus #KEELY - suspect superimposed on CKD #Pleural effusion - on TTE, due to CHF #Possible RLL PNA - on CXR, ? effusion vs infiltrate #Possible UTI - dirty catch #DM2 #HTN - cardiology consulted, appreciate recs - heparin gtt per pharmacy - Tn elevated, stable - TTE w/ reduced ef - diuresis per cards: bumex and metolazone - asa - dilt, imdur - pulm consult, appreciate recs - CAP coverage w/ ceftriaxone and azithro - UTI coverage w/ ceftriaxone - resp & urine cx - supplemental o2 prn - KEELY- renal consulted -f/u labs - insulin sliding scale achs - dm/cardiac diet - dvt ppx: hep gtt - full code anticipate pt will require in pt mgt x 1-2 days, DC to SNF once stable I spent 45 min on this case and 25 min on counseling and or are coordination time of note may not reflect time of clinical encounter Subjective Date patient seen: Oct 01, 2017 Time patient seen: 12:45 ROS Limited/Unobtainable: No Constitutional: Reports: malaise, weakness HEENT: Reports: no symptoms Cardiovascular: Reports: lightheadedness Respiratory: Reports: orthopnea, shortness of breath, SOB with excertion Gastrointestinal/Abdominal: Reports: no symptoms Genitourinary: Reports: no symptoms Neurologic/Psychiatric: Reports: no symptoms Endocrine: Reports: no symptoms Hematologic/Lymphatic: Reports: no symptoms Allergies: Coded Allergies: No Known Allergies (Unverified , 09/28/17) Subjective No acute events overnight Patient resting Notes persistent dyspnea worse with exertion Feels fatigued Objective Last 24 Hour Vital Signs Date Time Temp Pulse Resp B/P (MAP) Pulse Ox O2 Delivery O2 Flow Rate FiO2 10/01/17 12:00 97.5 103 18 127/103 (111) 100 97.5 10/01/17 12:00 108 10/01/17 11:49 127/103 10/01/17 09:00 Nasal Cannula 2.0 10/01/17 08:50 132/90 10/01/17 08:00 111 10/01/17 08:00 98.6 108 20 132/90 (104) 98 98.6 10/01/17 04:00 97.9 112 20 138/96 (110) 98 97.9 10/01/17 04:00 112 10/01/17 00:35 128/69 10/01/17 00:00 98.0 100 20 126/91 (103) 98 98.0 09/30/17 23:44 98 09/30/17 20:09 Nasal Cannula 3.0 09/30/17 20:09 97.9 71 20 142/77 (98) 98 97.9 09/30/17 19:50 103 09/30/17 17:47 113/80 09/30/17 16:00 115 09/30/17 16:00 97.4 112 20 113/80 (91) 98 97.4 Intake and Output 09/30/17 10/01/17 19:00 07:00 Intake Total 800.320 ml 360 ml Balance 800.320 ml 360 ml Intake Oral 250 ml 360 ml IV Total 550.320 ml Laboratory Tests 09/30/17 15:18: Activated Partial Thromboplast Time 30 09/30/17 16:15: Troponin I 0.056 09/30/17 21:25: Activated Partial Thromboplast Time 105H, Troponin I 0.088H 10/01/17 04:15: Activated Partial Thromboplast Time > 150*H 10/01/17 12:20: Activated Partial Thromboplast Time 123H Height (Feet): 5 Height (Inches): 7.00 Weight (Pounds): 232 David Jerry M.D. Oct 01, 2017 13:51
[2017-10-01] MEDS ORDERED: DULoxetine 30mg cap ORAL SCH (14:00)
[2017-10-01] MEDS: cefTRIAXone 1 GM in D5W 55 ML IVPB SCH (15:05)
--- NOTE | 2017-10-01 15:15 | Pulmonology Progress Note ---
Assessment/Plan Assessment/Plan Pulmonary Consultation Note Noted to have Pleural Effusion, CHF, CXR 10/01 unchanged HPI Is a 51-year-old female with a history high blood pressure and CHF. She presents with chief complaint of weakness and leg swelling. She said she can't walk because of the swelling. His been ongoing for 4 months. Worse to the point where she can't move around anymore. She was admitted to [facility] recently and transferred to a [facility]ci. She was then discharged home. She has not been taking her medication at all. Denies any fever chills. Denies any chest pain. Worse with any bleeding. She refused to take Lasix because it caused her leg to swell up. No new complaints Above corroborated with pt. Allergies: Coded Allergies: No Known Allergies (Unverified , 09/28/17) Medication History No Active Prescriptions or Reported Meds Patient History Healthcare decision maker Resuscitation status Full Code Advanced Directive on File Physical Exam Last 24 Hour Vital Signs Date Time Temp Pulse Resp B/P (MAP) Pulse Ox O2 Delivery O2 Flow Rate FiO2 09/29/17 12:23 124/94 09/29/17 12:23 124/94 09/29/17 12:00 97.0 112 22 124/94 (104) 97 97.0 09/29/17 12:00 112 09/29/17 09:00 Nasal Cannula 3.0 09/29/17 08:00 107 09/29/17 08:00 97.5 105 22 121/55 (77) 99 97.5 09/29/17 04:00 101 09/29/17 04:00 98.0 100 22 135/110 (118) 98 98.0 09/29/17 03:00 Nasal Cannula 3.0 09/29/17 02:40 111 09/29/17 02:36 97.9 103 24 148/115 (126) 98 97.9 09/29/17 02:35 98.2 99 18 139/105 98 Room Air 98.2 09/29/17 01:30 98.2 99 18 139/105 98 Room Air 98.2 09/29/17 00:30 98.8 96 18 152/114 97 Room Air 98.8 09/28/17 22:54 122 157/119 09/28/17 22:30 98.8 122 18 157/118 97 Room Air 98.8 09/28/17 21:30 98.8 108 18 133/106 96 Room Air 98.8 09/28/17 21:04 98.7 82 14 76/45 98 Room Air 98.8 Intake and Output 09/28/17 09/29/17 19:00 07:00 Output Total 750 ml Balance -750 ml Output Urine Total 750 ml # Voids 1 Laboratory Tests Test 09/28/17 21:40 09/28/17 22:15 09/29/17 04:20 09/29/17 12:05 White Blood Count 6.0 K/UL (4.8-10.8) 6.2 K/UL (4.8-10.8) Red Blood Count 4.90 M/UL (4.20-5.40) 4.54 M/UL (4.20-5.40) Hemoglobin 14.6 G/DL (12.0-16.0) 13.5 G/DL (12.0-16.0) Hematocrit 45.1 % (37.0-47.0) 42.2 % (37.0-47.0) Mean Corpuscular Volume 92 FL (80-99) 93 FL (80-99) Mean Corpuscular Hemoglobin 29.7 PG (27.0-31.0) 29.7 PG (27.0-31.0) Mean Corpuscular Hemoglobin Concent 32.3 G/DL (32.0-36.0) 32.0 G/DL (32.0-36.0) Red Cell Distribution Width 16.4 % (11.6-14.8) H 16.0 % (11.6-14.8) H Platelet Count 236 K/UL (150-450) 234 K/UL (150-450) Mean Platelet Volume 7.4 FL (6.5-10.1) 7.3 FL (6.5-10.1) Neutrophils (%) (Auto) 66.8 % (45.0-75.0) 75.4 % (45.0-75.0) H Lymphocytes (%) (Auto) 25.2 % (20.0-45.0) 17.3 % (20.0-45.0) L Monocytes (%) (Auto) 6.1 % (1.0-10.0) 6.2 % (1.0-10.0) Eosinophils (%) (Auto) 0.6 % (0.0-3.0) 0.6 % (0.0-3.0) Basophils (%) (Auto) 1.3 % (0.0-2.0) 0.5 % (0.0-2.0) Sodium Level 142 MMOL/L (136-145) Potassium Level 4.0 MMOL/L (3.5-5.1) Chloride Level 105 MMOL/L (98-107) Carbon Dioxide Level 25 MMOL/L (21-32) Anion Gap 12 mmol/L (5-15) Blood Urea Nitrogen 22 mg/dL (7-18) H Creatinine 2.0 MG/DL (0.55-1.30) H Estimat Glomerular Filtration Rate 26.2 mL/min (>60) Glucose Level 108 MG/DL (74-106) H Calcium Level 9.7 MG/DL (8.5-10.1) Total Bilirubin 2.0 MG/DL (0.2-1.0) H Direct Bilirubin 0.5 MG/DL (0.0-0.3) H Aspartate Amino Transf (AST/SGOT) 19 U/L (15-37) Alanine Aminotransferase (ALT/SGPT) 46 U/L (12-78) Alkaline Phosphatase 113 U/L (46-116) Total Creatine Kinase 142 U/L (26-308) Creatine Kinase MB 2.3 NG/ML (0.0-3.6) Creatine Kinase MB Relative Index 1.6 Troponin I 0.049 ng/mL (0.000-0.056) Pro-B-Type Natriuretic Peptide 3926 pg/mL (0-125) H Total Protein 7.2 G/DL (6.4-8.2) Albumin 3.6 G/DL (3.4-5.0) Globulin 3.6 g/dL Albumin/Globulin Ratio 1.0 (1.0-2.7) Urine Color Yellow Urine Appearance Slightly cloudy Urine pH 5 (4.5-8.0) Urine Specific [place] 1.025 (1.005-1.035) Urine Protein 3+ (NEGATIVE) H Urine Glucose (UA) Negative (NEGATIVE) Urine Ketones 2+ (NEGATIVE) H Urine Occult Blood 3+ (NEGATIVE) H Urine Nitrite Negative (NEGATIVE) Urine Bilirubin 1+ (NEGATIVE) H Urine Ictotest Urine Urobilinogen 1 MG/DL (0.0-1.0) H Urine Leukocyte Esterase 1+ (NEGATIVE) H Urine RBC 2-4 /HPF (0 - 2) H Urine WBC 0-2 /HPF (0 - 2) Urine Squamous Epithelial Cells Few /LPF (NONE/OCC) Urine Amorphous Sediment Many /LPF (NONE) H Urine Bacteria Few /HPF (NONE) Urine Opiates Screen Negative (NEGATIVE) Urine Barbiturates Screen Negative (NEGATIVE) Phencyclidine (PCP) Screen Negative (NEGATIVE) Urine Amphetamines Screen Negative (NEGATIVE) Urine Benzodiazepines Screen Negative (NEGATIVE) Urine Cocaine Screen Negative (NEGATIVE) Urine Marijuana (THC) Screen Negative (NEGATIVE) Phosphorus Level 5.0 MG/DL (2.5-4.9) H Activated Partial Thromboplast Time 26 SEC (23-33) Height (Feet): 5 Height (Inches): 7.00 Weight (Pounds): 108 Medications Current Medications Medications (Trade) Dose Ordered Sig/Sonam Route PRN Reason Start Time Stop Time Status Last Admin Dose Admin Acetaminophen (Tylenol) 650 mg Q6HR PRN ORAL Mild Pain (Pain Scale 1-3) 09/29/17 03:30 10/29/17 03:29 09/29/17 12:23 Acetaminophen/ Hydrocodone Bitart ([place] 10/325) 1 tab Q6HR PRN ORAL For Pain 09/29/17 03:30 10/06/17 03:29 Acetaminophen/ Hydrocodone Bitart ([place] 5/325) 1 tab Q6H PRN ORAL For Pain 09/29/17 03:30 10/06/17 03:29 Aspirin (ASA) 81 mg ONCE ORAL 09/29/17 13:30 09/29/17 14:30 09/29/17 13:29 Bumetanide (Bumex) 1 mg Q12HR IV 09/29/17 09:15 10/29/17 09:14 09/29/17 09:21 Dextrose (Dextrose 50%) 25 ml STAT PRN IV Hypoglycemia 09/29/17 03:30 10/29/17 03:29 Dextrose (Dextrose 50%) 50 ml STAT PRN IV Hypoglycemia 09/29/17 03:30 10/29/17 03:29 Heparin Sodium (Porcine) (Heparin 5000 units/ml) 3,000 units ONCE IV 09/29/17 13:30 09/29/17 15:00 Heparin Sodium/ Dextrose 500 ml @ 17.676 mls/ hr adjust per protocol IV 09/29/17 13:00 10/29/17 12:59 Hydralazine HCl (Apresoline) 10 mg Q6HR ORAL 09/29/17 12:00 10/29/17 11:59 09/29/17 12:23 Hydralazine HCl (Apresoline) 10 mg Q6HR PRN ORAL For High Blood Pressure 09/29/17 03:30 10/29/17 03:29 Insulin Aspart (NovoLOG) BEFORE MEALS AND HS SUBQ 09/29/17 06:30 10/29/17 06:29 09/29/17 11:14 Isosorbide Mononitrate (Imdur) 30 mg DAILY ORAL 09/29/17 12:00 10/29/17 11:59 09/29/17 12:23 Metolazone (Zaroxolyn) 2.5 mg DAILY@0830 ORAL 09/30/17 08:30 10/30/17 08:29 Ondansetron HCl (Zofran) 4 mg Q4HR PRN IVP Nausea & Vomiting 09/29/17 03:30 10/29/17 03:29 Assessment/Plan Assessment/Plan #CHF, EF < 30 % - due to med non compliance #increased apical echo possible lv thrombus #KEELY - suspect superimpose on CKD #Pleural effusion - on TTE, due to CHF #Possible RLL PNA - on CXR, ? effusion vs infiltrate #Possible UTI - dirty catch #DM2 #HTN - heparin gtt per pharmacy - trend labs/ekg - await TTE - diuresis per cards: bumex and metolazone - Agree CAP coverage w/ ceftriaxone and azithro - resp & urine cx - supplemental o2 prn - insulin sliding scale achs - dm/cardiac diet - dvt ppx: hep gtt - full code - Consider Thoracentesis if effusion does not improve on diuresis Subjective ROS Limited/Unobtainable: No Allergies: Coded Allergies: No Known Allergies (Unverified , 09/28/17) Objective Last 24 Hour Vital Signs Date Time Temp Pulse Resp B/P (MAP) Pulse Ox O2 Delivery O2 Flow Rate FiO2 10/01/17 12:00 97.5 103 18 127/103 (111) 100 97.5 10/01/17 12:00 108 10/01/17 11:49 127/103 10/01/17 09:00 Nasal Cannula 2.0 10/01/17 08:50 132/90 10/01/17 08:00 111 10/01/17 08:00 98.6 108 20 132/90 (104) 98 98.6 10/01/17 04:00 97.9 112 20 138/96 (110) 98 97.9 10/01/17 04:00 112 10/01/17 00:35 128/69 10/01/17 00:00 98.0 100 20 126/91 (103) 98 98.0 09/30/17 23:44 98 09/30/17 20:09 Nasal Cannula 3.0 09/30/17 20:09 97.9 71 20 142/77 (98) 98 97.9 09/30/17 19:50 103 09/30/17 17:47 113/80 09/30/17 16:00 115 09/30/17 16:00 97.4 112 20 113/80 (91) 98 97.4 Intake and Output 09/30/17 10/01/17 19:00 07:00 Intake Total 800.320 ml 360 ml Balance 800.320 ml 360 ml Intake Oral 250 ml 360 ml IV Total 550.320 ml Microbiology Date/Time Source Procedure Growth Status 09/29/17 15:34 Urine,Clean Catch Urine Culture - Preliminary Mixed Urogenital Contaminants Resulted Laboratory Tests 09/30/17 15:18: Activated Partial Thromboplast Time 30 09/30/17 16:15: Troponin I 0.056 09/30/17 21:25: Activated Partial Thromboplast Time 105H, Troponin I 0.088H 10/01/17 04:15: Activated Partial Thromboplast Time > 150*H 10/01/17 12:20: Activated Partial Thromboplast Time 123H Current Medications Medications (Trade) Dose Ordered Sig/Sonam Route PRN Reason Start Time Stop Time Status Last Admin Dose Admin Acetaminophen (Tylenol) 650 mg Q6HR PRN ORAL Mild Pain (Pain Scale 1-3) 09/29/17 03:30 10/29/17 03:29 09/29/17 12:23 Acetaminophen/ Hydrocodone Bitart ([place] 10/325) 1 tab Q6HR PRN ORAL For Pain 09/29/17 03:30 10/06/17 03:29 Acetaminophen/ Hydrocodone Bitart ([place] 5/325) 1 tab Q6H PRN ORAL For Pain 09/29/17 03:30 10/06/17 03:29 Azithromycin 500 mg/Dextrose 275 ml @ 275 mls/hr Q24HRS IV 09/29/17 16:00 10/05/17 16:59 09/30/17 15:43 Bumetanide (Bumex) 1 mg Q12HR IV 09/29/17 09:15 10/29/17 09:14 10/01/17 08:49 Ceftriaxone Sodium 1 gm/ Dextrose 55 ml @ 110 mls/hr Q24H IVPB 09/29/17 15:30 10/04/17 15:29 10/01/17 15:05 Dextrose (Dextrose 50%) 25 ml STAT PRN IV Hypoglycemia 09/29/17 03:30 10/29/17 03:29 Dextrose (Dextrose 50%) 50 ml STAT PRN IV Hypoglycemia 09/29/17 03:30 10/29/17 03:29 Duloxetine HCl (Cymbalta) 30 mg DAILY ORAL 10/02/17 09:00 11/01/17 08:59 Heparin Sodium/ Dextrose 500 ml @ 18.954 mls/ hr adjust per protocol IV 10/01/17 13:45 10/31/17 13:44 10/01/17 13:46 Hydralazine HCl (Apresoline) 10 mg Q6HR ORAL 09/29/17 12:00 10/29/17 11:59 10/01/17 11:49 Hydralazine HCl (Apresoline) 10 mg Q6HR PRN ORAL For High Blood Pressure 09/29/17 03:30 10/29/17 03:29 Insulin Aspart (NovoLOG) BEFORE MEALS AND HS SUBQ 09/29/17 06:30 10/29/17 06:29 10/01/17 11:32 Isosorbide Mononitrate (Imdur) 30 mg DAILY ORAL 09/29/17 12:00 10/29/17 11:59 10/01/17 08:50 Lactobacillus Acidophilus (Culturelle) 1 tab TWICE A DAY ORAL 09/29/17 18:00 10/29/17 17:59 10/01/17 08:49 Metolazone (Zaroxolyn) 2.5 mg DAILY@0830 ORAL 09/30/17 08:30 10/30/17 08:29 10/01/17 08:49 Ondansetron HCl (Zofran) 4 mg Q4HR PRN IVP Nausea & Vomiting 09/29/17 03:30 10/29/17 03:29 Quetiapine Fumarate (SEROquel) 25 mg BEDTIME ORAL 10/01/17 21:00 10/31/17 20:59 Kofi Kim MD Oct 01, 2017 15:15
[2017-10-01] MEDS: Azithromycin 500 MG in D5W 275 ML IV SCH (15:42)
--- NOTE | 2017-10-01 15:50 | Pulmonology Progress Note ---
Assessment/Plan Assessment/Plan Pulmonary Follow Up Note DOS 09/30/2017 Previously noted to have Pleural Effusion, CHF, HPI Is a 51-year-old female with a history high blood pressure and CHF. She presents with chief complaint of weakness and leg swelling. She said she can't walk because of the swelling. His been ongoing for 4 months. Worse to the point where she can't move around anymore. She was admitted to [facility] recently and transferred to a [facility]. She was then discharged home. She has not been taking her medication at all. Denies any fever chills. Denies any chest pain. Worse with any bleeding. She refused to take Lasix because it caused her leg to swell up. No new complaints Above corroborated with pt. Allergies: Coded Allergies: No Known Allergies (Unverified , 09/28/17) Medication History No Active Prescriptions or Reported Meds Patient History Healthcare decision maker Resuscitation status Full Code Advanced Directive on File Physical Exam Last 24 Hour Vital Signs Date Time Temp Pulse Resp B/P (MAP) Pulse Ox O2 Delivery O2 Flow Rate FiO2 09/29/17 12:23 124/94 09/29/17 12:23 124/94 09/29/17 12:00 97.0 112 22 124/94 (104) 97 97.0 09/29/17 12:00 112 09/29/17 09:00 Nasal Cannula 3.0 09/29/17 08:00 107 09/29/17 08:00 97.5 105 22 121/55 (77) 99 97.5 09/29/17 04:00 101 09/29/17 04:00 98.0 100 22 135/110 (118) 98 98.0 09/29/17 03:00 Nasal Cannula 3.0 09/29/17 02:40 111 09/29/17 02:36 97.9 103 24 148/115 (126) 98 97.9 09/29/17 02:35 98.2 99 18 139/105 98 Room Air 98.2 09/29/17 01:30 98.2 99 18 139/105 98 Room Air 98.2 09/29/17 00:30 98.8 96 18 152/114 97 Room Air 98.8 09/28/17 22:54 122 157/119 09/28/17 22:30 98.8 122 18 157/118 97 Room Air 98.8 09/28/17 21:30 98.8 108 18 133/106 96 Room Air 98.8 09/28/17 21:04 98.7 82 14 76/45 98 Room Air 98.8 Intake and Output 09/28/17 09/29/17 19:00 07:00 Output Total 750 ml Balance -750 ml Output Urine Total 750 ml # Voids 1 Laboratory Tests Test 09/28/17 21:40 09/28/17 22:15 09/29/17 04:20 09/29/17 12:05 White Blood Count 6.0 K/UL (4.8-10.8) 6.2 K/UL (4.8-10.8) Red Blood Count 4.90 M/UL (4.20-5.40) 4.54 M/UL (4.20-5.40) Hemoglobin 14.6 G/DL (12.0-16.0) 13.5 G/DL (12.0-16.0) Hematocrit 45.1 % (37.0-47.0) 42.2 % (37.0-47.0) Mean Corpuscular Volume 92 FL (80-99) 93 FL (80-99) Mean Corpuscular Hemoglobin 29.7 PG (27.0-31.0) 29.7 PG (27.0-31.0) Mean Corpuscular Hemoglobin Concent 32.3 G/DL (32.0-36.0) 32.0 G/DL (32.0-36.0) Red Cell Distribution Width 16.4 % (11.6-14.8) H 16.0 % (11.6-14.8) H Platelet Count 236 K/UL (150-450) 234 K/UL (150-450) Mean Platelet Volume 7.4 FL (6.5-10.1) 7.3 FL (6.5-10.1) Neutrophils (%) (Auto) 66.8 % (45.0-75.0) 75.4 % (45.0-75.0) H Lymphocytes (%) (Auto) 25.2 % (20.0-45.0) 17.3 % (20.0-45.0) L Monocytes (%) (Auto) 6.1 % (1.0-10.0) 6.2 % (1.0-10.0) Eosinophils (%) (Auto) 0.6 % (0.0-3.0) 0.6 % (0.0-3.0) Basophils (%) (Auto) 1.3 % (0.0-2.0) 0.5 % (0.0-2.0) Sodium Level 142 MMOL/L (136-145) Potassium Level 4.0 MMOL/L (3.5-5.1) Chloride Level 105 MMOL/L (98-107) Carbon Dioxide Level 25 MMOL/L (21-32) Anion Gap 12 mmol/L (5-15) Blood Urea Nitrogen 22 mg/dL (7-18) H Creatinine 2.0 MG/DL (0.55-1.30) H Estimat Glomerular Filtration Rate 26.2 mL/min (>60) Glucose Level 108 MG/DL (74-106) H Calcium Level 9.7 MG/DL (8.5-10.1) Total Bilirubin 2.0 MG/DL (0.2-1.0) H Direct Bilirubin 0.5 MG/DL (0.0-0.3) H Aspartate Amino Transf (AST/SGOT) 19 U/L (15-37) Alanine Aminotransferase (ALT/SGPT) 46 U/L (12-78) Alkaline Phosphatase 113 U/L (46-116) Total Creatine Kinase 142 U/L (26-308) Creatine Kinase MB 2.3 NG/ML (0.0-3.6) Creatine Kinase MB Relative Index 1.6 Troponin I 0.049 ng/mL (0.000-0.056) Pro-B-Type Natriuretic Peptide 3926 pg/mL (0-125) H Total Protein 7.2 G/DL (6.4-8.2) Albumin 3.6 G/DL (3.4-5.0) Globulin 3.6 g/dL Albumin/Globulin Ratio 1.0 (1.0-2.7) Urine Color Yellow Urine Appearance Slightly cloudy Urine pH 5 (4.5-8.0) Urine Specific [place] 1.025 (1.005-1.035) Urine Protein 3+ (NEGATIVE) H Urine Glucose (UA) Negative (NEGATIVE) Urine Ketones 2+ (NEGATIVE) H Urine Occult Blood 3+ (NEGATIVE) H Urine Nitrite Negative (NEGATIVE) Urine Bilirubin 1+ (NEGATIVE) H Urine Ictotest Urine Urobilinogen 1 MG/DL (0.0-1.0) H Urine Leukocyte Esterase 1+ (NEGATIVE) H Urine RBC 2-4 /HPF (0 - 2) H Urine WBC 0-2 /HPF (0 - 2) Urine Squamous Epithelial Cells Few /LPF (NONE/OCC) Urine Amorphous Sediment Many /LPF (NONE) H Urine Bacteria Few /HPF (NONE) Urine Opiates Screen Negative (NEGATIVE) Urine Barbiturates Screen Negative (NEGATIVE) Phencyclidine (PCP) Screen Negative (NEGATIVE) Urine Amphetamines Screen Negative (NEGATIVE) Urine Benzodiazepines Screen Negative (NEGATIVE) Urine Cocaine Screen Negative (NEGATIVE) Urine Marijuana (THC) Screen Negative (NEGATIVE) Phosphorus Level 5.0 MG/DL (2.5-4.9) H Activated Partial Thromboplast Time 26 SEC (23-33) Height (Feet): 5 Height (Inches): 7.00 Weight (Pounds): 108 Medications Current Medications Medications (Trade) Dose Ordered Sig/Sonam Route PRN Reason Start Time Stop Time Status Last Admin Dose Admin Acetaminophen (Tylenol) 650 mg Q6HR PRN ORAL Mild Pain (Pain Scale 1-3) 09/29/17 03:30 10/29/17 03:29 09/29/17 12:23 Acetaminophen/ Hydrocodone Bitart ([place] 10/325) 1 tab Q6HR PRN ORAL For Pain 09/29/17 03:30 10/06/17 03:29 Acetaminophen/ Hydrocodone Bitart ([place] 5/325) 1 tab Q6H PRN ORAL For Pain 09/29/17 03:30 10/06/17 03:29 Aspirin (ASA) 81 mg ONCE ORAL 09/29/17 13:30 09/29/17 14:30 09/29/17 13:29 Bumetanide (Bumex) 1 mg Q12HR IV 09/29/17 09:15 10/29/17 09:14 09/29/17 09:21 Dextrose (Dextrose 50%) 25 ml STAT PRN IV Hypoglycemia 09/29/17 03:30 10/29/17 03:29 Dextrose (Dextrose 50%) 50 ml STAT PRN IV Hypoglycemia 09/29/17 03:30 10/29/17 03:29 Heparin Sodium (Porcine) (Heparin 5000 units/ml) 3,000 units ONCE IV 09/29/17 13:30 09/29/17 15:00 Heparin Sodium/ Dextrose 500 ml @ 17.676 mls/ hr adjust per protocol IV 09/29/17 13:00 10/29/17 12:59 Hydralazine HCl (Apresoline) 10 mg Q6HR ORAL 09/29/17 12:00 10/29/17 11:59 09/29/17 12:23 Hydralazine HCl (Apresoline) 10 mg Q6HR PRN ORAL For High Blood Pressure 09/29/17 03:30 10/29/17 03:29 Insulin Aspart (NovoLOG) BEFORE MEALS AND HS SUBQ 09/29/17 06:30 10/29/17 06:29 09/29/17 11:14 Isosorbide Mononitrate (Imdur) 30 mg DAILY ORAL 09/29/17 12:00 10/29/17 11:59 09/29/17 12:23 Metolazone (Zaroxolyn) 2.5 mg DAILY@0830 ORAL 09/30/17 08:30 10/30/17 08:29 Ondansetron HCl (Zofran) 4 mg Q4HR PRN IVP Nausea & Vomiting 09/29/17 03:30 10/29/17 03:29 Assessment/Plan Assessment/Plan #CHF, EF < 30 % - due to med non compliance #increased apical echo possible lv thrombus #KEELY - suspect superimpose on CKD #Pleural effusion - on TTE, due to CHF #Possible RLL PNA - on CXR, ? effusion vs infiltrate #Possible UTI - dirty catch #DM2 #HTN - heparin gtt per pharmacy - trend labs/ekg - await TTE - diuresis per cards: bumex and metolazone - Agree CAP coverage w/ ceftriaxone and azithro - resp & urine cx - supplemental o2 prn - insulin sliding scale achs - dm/cardiac diet - dvt ppx: hep gtt - full code - Consider Thoracentesis if effusion does not improve on diuresis - CXR NOTE: DOS 09/30/2017 Subjective ROS Limited/Unobtainable: No Allergies: Coded Allergies: No Known Allergies (Unverified , 09/28/17) Objective Last 24 Hour Vital Signs Date Time Temp Pulse Resp B/P (MAP) Pulse Ox O2 Delivery O2 Flow Rate FiO2 10/01/17 12:00 97.5 103 18 127/103 (111) 100 97.5 10/01/17 12:00 108 10/01/17 11:49 127/103 10/01/17 09:00 Nasal Cannula 2.0 10/01/17 08:50 132/90 10/01/17 08:00 111 10/01/17 08:00 98.6 108 20 132/90 (104) 98 98.6 10/01/17 04:00 97.9 112 20 138/96 (110) 98 97.9 10/01/17 04:00 112 10/01/17 00:35 128/69 10/01/17 00:00 98.0 100 20 126/91 (103) 98 98.0 09/30/17 23:44 98 09/30/17 20:09 Nasal Cannula 3.0 09/30/17 20:09 97.9 71 20 142/77 (98) 98 97.9 09/30/17 19:50 103 09/30/17 17:47 113/80 09/30/17 16:00 115 09/30/17 16:00 97.4 112 20 113/80 (91) 98 97.4 Intake and Output 09/30/17 10/01/17 19:00 07:00 Intake Total 800.320 ml 360 ml Balance 800.320 ml 360 ml Intake Oral 250 ml 360 ml IV Total 550.320 ml Microbiology Date/Time Source Procedure Growth Status 09/29/17 15:34 Urine,Clean Catch Urine Culture - Preliminary Mixed Urogenital Contaminants Resulted Laboratory Tests 09/30/17 16:15: Troponin I 0.056 09/30/17 21:25: Troponin I 0.088H, Activated Partial Thromboplast Time 105H 10/01/17 04:15: Activated Partial Thromboplast Time > 150*H 10/01/17 12:20: Activated Partial Thromboplast Time 123H Current Medications Medications (Trade) Dose Ordered Sig/Sonam Route PRN Reason Start Time Stop Time Status Last Admin Dose Admin Acetaminophen (Tylenol) 650 mg Q6HR PRN ORAL Mild Pain (Pain Scale 1-3) 09/29/17 03:30 10/29/17 03:29 09/29/17 12:23 Acetaminophen/ Hydrocodone Bitart ([place] 10/325) 1 tab Q6HR PRN ORAL For Pain 09/29/17 03:30 10/06/17 03:29 Acetaminophen/ Hydrocodone Bitart ([place] 5/325) 1 tab Q6H PRN ORAL For Pain 09/29/17 03:30 10/06/17 03:29 Azithromycin 500 mg/Dextrose 275 ml @ 275 mls/hr Q24HRS IV 09/29/17 16:00 10/05/17 16:59 10/01/17 15:42 Bumetanide (Bumex) 1 mg Q12HR IV 09/29/17 09:15 10/29/17 09:14 10/01/17 08:49 Ceftriaxone Sodium 1 gm/ Dextrose 55 ml @ 110 mls/hr Q24H IVPB 09/29/17 15:30 10/04/17 15:29 10/01/17 15:05 Dextrose (Dextrose 50%) 25 ml STAT PRN IV Hypoglycemia 09/29/17 03:30 10/29/17 03:29 Dextrose (Dextrose 50%) 50 ml STAT PRN IV Hypoglycemia 09/29/17 03:30 10/29/17 03:29 Duloxetine HCl (Cymbalta) 30 mg DAILY ORAL 10/02/17 09:00 11/01/17 08:59 Heparin Sodium/ Dextrose 500 ml @ 18.954 mls/ hr adjust per protocol IV 10/01/17 13:45 10/31/17 13:44 10/01/17 13:46 Hydralazine HCl (Apresoline) 10 mg Q6HR ORAL 09/29/17 12:00 10/29/17 11:59 10/01/17 11:49 Hydralazine HCl (Apresoline) 10 mg Q6HR PRN ORAL For High Blood Pressure 09/29/17 03:30 10/29/17 03:29 Insulin Aspart (NovoLOG) BEFORE MEALS AND HS SUBQ 09/29/17 06:30 10/29/17 06:29 10/01/17 11:32 Isosorbide Mononitrate (Imdur) 30 mg DAILY ORAL 09/29/17 12:00 10/29/17 11:59 10/01/17 08:50 Lactobacillus Acidophilus (Culturelle) 1 tab TWICE A DAY ORAL 09/29/17 18:00 9/3/18 17:59 10/01/17 08:49 Metolazone (Zaroxolyn) 2.5 mg DAILY@0830 ORAL 09/30/17 08:30 10/30/17 08:29 10/01/17 08:49 Ondansetron HCl (Zofran) 4 mg Q4HR PRN IVP Nausea & Vomiting 09/29/17 03:30 10/29/17 03:29 Quetiapine Fumarate (SEROquel) 25 mg BEDTIME ORAL 10/01/17 21:00 10/31/17 20:59 Kofi Kim MD Oct 01, 2017 15:50
[2017-10-01 16:00] VITALS: BP 124/96
[2017-10-01] MEDS: Docusate 100mg cap ORAL SCH (17:08)
[2017-10-01 20:00] VITALS: BP 129/97
[2017-10-01] MEDS ORDERED: Heparin 5000 units/ml inj IV SCH (20:30)
--- NOTE | 2017-10-01 20:54 | Cardiology Progress Note ---
Assessment/Plan Assessment/Plan acute on chronic chf med non complaince increaed apical echo possible lv thrombus htn renal insuf pulm htn mr sig tr sig nsvt need na fluid restriction which i discussed iwth pt bumex increase dose if lab ok in amd Isordil hydralazine combination will increase eventually will need bb once chf is better repeat labs in am i have explaine ot th ept the issue regardign possible thormbus will need to consider anticoagulation for now but need to see if she has some way of complyign with fu need for anticoag monitoring otherwise may need to get injectable Lovenox daily needs health insurance for meds she says has one s/w to explore electolyte repletion tele sinus nsvt watch cr Subjective Cardiovascular: Denies: chest pain, lightheadedness, palpitations Respiratory: Reports: shortness of breath Gastrointestinal/Abdominal: Denies: abdominal pain Genitourinary: Denies: burning Objective Last 24 Hour Vital Signs Date Time Temp Pulse Resp B/P (MAP) Pulse Ox O2 Delivery O2 Flow Rate FiO2 10/01/17 17:08 124/96 10/01/17 16:00 97.2 106 22 124/96 (105) 100 97.2 10/01/17 16:00 107 10/01/17 12:00 97.5 103 18 127/103 (111) 100 97.5 10/01/17 12:00 108 10/01/17 11:49 127/103 10/01/17 09:00 Nasal Cannula 2.0 10/01/17 08:50 132/90 10/01/17 08:00 111 10/01/17 08:00 98.6 108 20 132/90 (104) 98 98.6 10/01/17 04:00 97.9 112 20 138/96 (110) 98 97.9 10/01/17 04:00 112 10/01/17 00:35 128/69 10/01/17 00:00 98.0 100 20 126/91 (103) 98 98.0 09/30/17 23:44 98 General Appearance: no apparent distress, alert Neck: supple Cardiovascular: normal rate, regular rhythm Respiratory/Chest: lungs clear Abdomen: normal bowel sounds, non tender, soft Extremities: moderate edema Intake and Output 09/30/17 10/01/17 19:00 07:00 Intake Total 800.320 ml 360 ml Balance 800.320 ml 360 ml Intake Oral 250 ml 360 ml IV Total 550.320 ml Laboratory Tests Test 09/30/17 21:25 10/01/17 04:15 10/01/17 12:20 10/01/17 19:10 Activated Partial Thromboplast Time 105 SEC (23-33) H > 150 SEC (23-33) *H 123 SEC (23-33) H 60 SEC (23-33) H Troponin I 0.088 ng/mL (0.000-0.056) Microbiology Date/Time Source Procedure Growth Status 09/29/17 15:34 Urine,Clean Catch Urine Culture - Preliminary Mixed Urogenital Contaminants Resulted Serafin Eagle MD Oct 01, 2017 20:54
[2017-10-02] VITALS: BP 127/97
[2017-10-02 03:32] LABS: BASOPHILS % (AUTO) 0.8 % (0.0-2.0); EOSINOPHILS % (AUTO) 2.9 % (0.0-3.0); HEMATOCRIT 41.9 % (37.0-47.0); HEMOGLOBIN 13.5 G/DL (12.0-16.0); LYMPHOCYTES % (AUTO) 31.5 % (20.0-45.0); MEAN CORPUSCULAR VOLUME 92 FL (80-99); MONOCYTES % (AUTO) 6.7 % (1.0-10.0); NEUTROPHILS % (AUTO) 58.1 % (45.0-75.0); PLATELET COUNT 214 K/UL (150-450); RED BLOOD COUNT 4.55 M/UL (4.20-5.40); RED CELL DISTRIBUTION WIDTH 16.1 % (11.6-14.8); WHITE BLOOD COUNT 4.8 K/UL (4.8-10.8)
[2017-10-02 03:47] LABS: ANION GAP 10 mmol/L (5-15); BLOOD UREA NITROGEN 16 mg/dL (7-18); CALCIUM 9.4 MG/DL (8.5-10.1); CARBON DIOXIDE 32 MMOL/L (21-32); CHLORIDE 102 MMOL/L (98-107); CREATININE 1.7 MG/DL (0.55-1.30); SODIUM 143 MMOL/L (136-145)
[2017-10-02 03:59] LABS: POTASSIUM 2.6 MMOL/L (3.5-5.1)
[2017-10-02 04:00] VITALS: BP 127/103
[2017-10-02] MEDS ORDERED: Heparin 25,000u/D5W 500ml 500 ML IV SCH ×3 (05:30→20:00)
[2017-10-02] MEDS: HydrALAZINE 10mg Tab ORAL SCH ×2 (05:46→11:52)
[2017-10-02] MEDS: NovoLOG Insulin Flexpen SUBQ SCH ×4 (05:52→20:19)
[2017-10-02 08:00] VITALS: BP 129/93
[2017-10-02] MEDS: Bumetanide 0.25mg/ml 4ml IV SCH ×2 (08:52→21:01)
[2017-10-02] MEDS: Docusate 100mg cap ORAL SCH ×2 (08:52→17:28)
[2017-10-02] MEDS: Lactobacillus-GG tablet ORAL SCH ×2 (08:53→17:28)
[2017-10-02] MEDS: Imdur 30mg tab ORAL SCH (08:53)
[2017-10-02] MEDS: DULoxetine 30mg cap ORAL SCH (08:54)
--- NOTE | 2017-10-02 11:01 | Physician Query ---
--------- THIS DOCUMENT IS A PERMANENT PART OF THE MEDICAL RECORD --------- PLEASE COMPLETE DOCUMENT BEFORE SIGNING Dear Dr. Ferguson Date: 10/02/2017 Waste Removalist/CDS Name: Monie Cruz Waste Removalist/CDS Phone No.: [phone] Exercise your independent professional judgment when responding to the query. Questions asked do not imply a particular answer is desired or expected. We greatly appreciate your clarification on this issue. CLINICAL DOCUMENTATION STATES: H&P notes and progress notes document "Possible RLL Pneumonia". CLINICAL FINDINGS SHOW: CXR: Possible right lower lobe infiltrate. Antibiotics: Ceftriaxone, Azithromycin. Can you please clarify the status of the diagnosis of "Pneumonia" in this patient? PHYSICIAN RESPONSE: [ x ] The above diagnosis was monitored, evaluated, and/or treated and is a confirmed diagnosis [ ] The above diagnosis was Ruled out [ ] The above diagnosis is still a likely, suspected, probable diagnosis [ ] Other, please specify: [ ] Clinically unable to determine Please also document in your Progress Notes and/or Discharge Summary and indicate if the condition was present on admission. Celia BENNETT
[2017-10-02 12:00] VITALS: BP 113/74
[2017-10-02] MEDS ORDERED: Heparin 5000 units/ml inj IV SCH (12:45)
--- NOTE | 2017-10-02 13:46 | Cardiology Progress Note ---
Assessment/Plan Assessment/Plan acute on chronic chf med non complaince increaed apical echo possible lv thrombus htn renal insuf pulm htn mr sig tr sig nsvt need na fluid restriction which i discussed iwth pt bumex increase dose if lab ok in amd Isordil hydralazine combination will increase eventually will need bb once chf is better repeat labs in am i have explaine ot th ept the issue regardign possible thormbus will need to consider anticoagulation for now but need to see if she has some way of complyign with fu need for anticoag monitoring otherwise may need to get injectable Lovenox daily needs health insurance for meds she says has one s/w to explore electolyte repletion tele sinus nsvt watch cr coumadin Subjective Cardiovascular: Denies: chest pain, lightheadedness Respiratory: Reports: shortness of breath Gastrointestinal/Abdominal: Denies: abdominal pain Genitourinary: Denies: burning Objective Last 24 Hour Vital Signs Date Time Temp Pulse Resp B/P (MAP) Pulse Ox O2 Delivery O2 Flow Rate FiO2 10/02/17 11:52 110/75 10/02/17 09:00 Nasal Cannula 2.0 10/02/17 08:53 110/71 10/02/17 08:00 104 10/02/17 08:00 97.0 101 20 129/93 (105) 97 97.0 10/02/17 05:46 127/97 10/02/17 04:00 97.7 97 19 127/103 (111) 96 97.7 10/02/17 03:38 97 10/02/17 00:00 97.7 102 18 127/97 (107) 97 97.7 10/01/17 23:57 98 10/01/17 23:41 127/97 10/01/17 21:00 Nasal Cannula 2.0 10/01/17 20:00 97.7 104 18 129/97 (108) 97 97.7 10/01/17 19:23 107 10/01/17 17:08 124/96 10/01/17 16:00 97.2 106 22 124/96 (105) 100 97.2 10/01/17 16:00 107 General Appearance: no apparent distress Neck: supple Cardiovascular: normal rate, regular rhythm Respiratory/Chest: lungs clear Abdomen: normal bowel sounds, non tender, soft Extremities: moderate edema Intake and Output 10/01/17 10/02/17 19:00 07:00 Intake Total 350 ml 120 ml Output Total 1600 ml Balance 350 ml -1480 ml Intake Oral 350 ml 120 ml Output Urine Total 1600 ml # Voids 3 # Bowel Movements 1 Laboratory Tests Test 10/01/17 19:10 10/02/17 03:01 10/02/17 11:25 Activated Partial Thromboplast Time 60 SEC (23-33) H > 150 SEC (23-33) *H 50 SEC (23-33) H White Blood Count 4.8 K/UL (4.8-10.8) Red Blood Count 4.55 M/UL (4.20-5.40) Hemoglobin 13.5 G/DL (12.0-16.0) Hematocrit 41.9 % (37.0-47.0) Mean Corpuscular Volume 92 FL (80-99) Mean Corpuscular Hemoglobin 29.8 PG (27.0-31.0) Mean Corpuscular Hemoglobin Concent 32.3 G/DL (32.0-36.0) Red Cell Distribution Width 16.1 % (11.6-14.8) H Platelet Count 214 K/UL (150-450) Mean Platelet Volume 7.9 FL (6.5-10.1) Neutrophils (%) (Auto) 58.1 % (45.0-75.0) Lymphocytes (%) (Auto) 31.5 % (20.0-45.0) Monocytes (%) (Auto) 6.7 % (1.0-10.0) Eosinophils (%) (Auto) 2.9 % (0.0-3.0) Basophils (%) (Auto) 0.8 % (0.0-2.0) Sodium Level 143 MMOL/L (136-145) Potassium Level 2.6 MMOL/L (3.5-5.1) *L Chloride Level 102 MMOL/L (98-107) Carbon Dioxide Level 32 MMOL/L (21-32) Anion Gap 10 mmol/L (5-15) Blood Urea Nitrogen 16 mg/dL (7-18) Creatinine 1.7 MG/DL (0.55-1.30) H Estimat Glomerular Filtration Rate 38.2 mL/min (>60) Glucose Level 102 MG/DL (74-106) Calcium Level 9.4 MG/DL (8.5-10.1) Magnesium Level 1.6 MG/DL (1.8-2.4) L Pro-B-Type Natriuretic Peptide 1887 pg/mL (0-125) H Microbiology Date/Time Source Procedure Growth Status 09/29/17 15:34 Urine,Clean Catch Urine Culture - Final Mixed Urogenital Contaminants Complete Serafin Eagle MD Oct 02, 2017 13:46
--- NOTE | 2017-10-02 14:06 | General Progress Note ---
Assessment/Plan Status: progressing Assessment/Plan #CHF exacerbation, acute on chronic systolic heart failure, EF < 30 % - due to med non compliance #increased apical echo possible lv thrombus #KEELY - suspect superimposed on CKD #Pleural effusion - on TTE, due to CHF #Possible RLL PNA - on CXR, ? effusion vs infiltrate #Possible UTI - dirty catch #DM2 #HTN #Hypokalemia - cardiology consulted, appreciate recs - heparin gtt per pharmacy - Tn elevated, stable - TTE w/ reduced ef - diuresis per cards: bumex and metolazone - asa - dilt, imdur - pulm consult, appreciate recs - CAP coverage w/ ceftriaxone and azithro - UTI coverage w/ ceftriaxone - resp & urine cx - supplemental o2 prn - KEELY- renal consulted -f/u labs - insulin sliding scale achs - dm/cardiac diet - dvt ppx: hep gtt - full code - replete potassium and magnesium anticipate pt will require in pt mgt x 1-2 days, DC to SNF once stable I spent 45 min on this case and 25 min on counseling and or are coordination time of note may not reflect time of clinical encounter Subjective Date patient seen: Oct 02, 2017 Time patient seen: 13:55 Constitutional: Reports: malaise, weakness HEENT: Reports: no symptoms Cardiovascular: Reports: edema, lightheadedness Respiratory: Reports: shortness of breath, SOB with excertion Gastrointestinal/Abdominal: Reports: no symptoms Genitourinary: Reports: no symptoms Neurologic/Psychiatric: Reports: no symptoms Endocrine: Reports: no symptoms Hematologic/Lymphatic: Reports: no symptoms Allergies: Coded Allergies: No Known Allergies (Unverified , 09/28/17) Subjective No acute events overnight Patient resting in bed Notes persistent dyspnea worse with exertion Feels fatigued Notes improved swelling in legs although sill has discomfort Objective Last 24 Hour Vital Signs Date Time Temp Pulse Resp B/P (MAP) Pulse Ox O2 Delivery O2 Flow Rate FiO2 10/02/17 12:00 104 10/02/17 11:52 110/75 10/02/17 09:00 Nasal Cannula 2.0 10/02/17 08:53 110/71 10/02/17 08:00 104 10/02/17 08:00 97.0 101 20 129/93 (105) 97 97.0 10/02/17 05:46 127/97 10/02/17 04:00 97.7 97 19 127/103 (111) 96 97.7 10/02/17 03:38 97 10/02/17 00:00 97.7 102 18 127/97 (107) 97 97.7 10/01/17 23:57 98 10/01/17 23:41 127/97 10/01/17 21:00 Nasal Cannula 2.0 10/01/17 20:00 97.7 104 18 129/97 (108) 97 97.7 10/01/17 19:23 107 10/01/17 17:08 124/96 10/01/17 16:00 97.2 106 22 124/96 (105) 100 97.2 10/01/17 16:00 107 Intake and Output 10/01/17 10/02/17 19:00 07:00 Intake Total 350 ml 120 ml Output Total 1600 ml Balance 350 ml -1480 ml Intake Oral 350 ml 120 ml Output Urine Total 1600 ml # Voids 3 # Bowel Movements 1 Laboratory Tests 10/01/17 19:10: Activated Partial Thromboplast Time 60H 10/02/17 03:01: Activated Partial Thromboplast Time > 150*H, White Blood Count 4.8, Red Blood Count 4.55, Hemoglobin 13.5, Hematocrit 41.9, Mean Corpuscular Volume 92, Mean Corpuscular Hemoglobin 29.8, Mean Corpuscular Hemoglobin Concent 32.3, Red Cell Distribution Width 16.1H, Platelet Count 214, Mean Platelet Volume 7.9, Neutrophils (%) (Auto) 58.1, Lymphocytes (%) (Auto) 31.5, Monocytes (%) (Auto) 6.7, Eosinophils (%) (Auto) 2.9, Basophils (%) (Auto) 0.8, Sodium Level 143, Potassium Level 2.6*L, Chloride Level 102, Carbon Dioxide Level 32, Anion Gap 10 , Blood Urea Nitrogen 16, Creatinine 1.7H, Estimat Glomerular Filtration Rate 38.2, Glucose Level 102, Calcium Level 9.4, Magnesium Level 1.6L, Pro-B-Type Natriuretic Peptide 1887H 10/02/17 11:25: Activated Partial Thromboplast Time 50H Height (Feet): 5 Height (Inches): 7.00 Weight (Pounds): 222 General Appearance: WD/WN, no apparent distress EENT: PERRL/EOMI, TMs normal Neck: non-tender, supple Cardiovascular: normal peripheral pulses, normal rate, regular rhythm Respiratory/Chest: chest wall non-tender, decreased breath sounds Abdomen: normal bowel sounds, non tender Pelvis: normal external exam Extremities: normal range of motion Edema: 2+ Generalized Edema: moderate edema 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 Oct 02, 2017 14:06
--- NOTE | 2017-10-02 14:56 | General Progress Note ---
Assessment/Plan Status: stable Assessment/Plan MDD Encephalopathy -cymbalta 30mg qam -seroquel 25mg qhs -provided ro/st Subjective Date patient seen: Oct 02, 2017 Neurologic/Psychiatric: Reports: anxiety, depressed, emotional problems Allergies: Coded Allergies: No Known Allergies (Unverified , 09/28/17) Objective Last 24 Hour Vital Signs Date Time Temp Pulse Resp B/P (MAP) Pulse Ox O2 Delivery O2 Flow Rate FiO2 10/02/17 12:00 104 10/02/17 12:00 97.3 103 20 113/74 (87) 96 97.3 10/02/17 11:52 110/75 10/02/17 09:00 Nasal Cannula 2.0 10/02/17 08:53 110/71 10/02/17 08:00 104 10/02/17 08:00 97.0 101 20 129/93 (105) 97 97.0 10/02/17 05:46 127/97 10/02/17 04:00 97.7 97 19 127/103 (111) 96 97.7 10/02/17 03:38 97 10/02/17 00:00 97.7 102 18 127/97 (107) 97 97.7 10/01/17 23:57 98 10/01/17 23:41 127/97 10/01/17 21:00 Nasal Cannula 2.0 10/01/17 20:00 97.7 104 18 129/97 (108) 97 97.7 10/01/17 19:23 107 10/01/17 17:08 124/96 10/01/17 16:00 97.2 106 22 124/96 (105) 100 97.2 10/01/17 16:00 107 Intake and Output 10/01/17 10/02/17 19:00 07:00 Intake Total 350 ml 120 ml Output Total 1600 ml Balance 350 ml -1480 ml Intake Oral 350 ml 120 ml Output Urine Total 1600 ml # Voids 3 # Bowel Movements 1 Laboratory Tests 10/01/17 19:10: Activated Partial Thromboplast Time 60H 10/02/17 03:01: Activated Partial Thromboplast Time > 150*H, White Blood Count 4.8, Red Blood Count 4.55, Hemoglobin 13.5, Hematocrit 41.9, Mean Corpuscular Volume 92, Mean Corpuscular Hemoglobin 29.8, Mean Corpuscular Hemoglobin Concent 32.3, Red Cell Distribution Width 16.1H, Platelet Count 214, Mean Platelet Volume 7.9, Neutrophils (%) (Auto) 58.1, Lymphocytes (%) (Auto) 31.5, Monocytes (%) (Auto) 6.7, Eosinophils (%) (Auto) 2.9, Basophils (%) (Auto) 0.8, Sodium Level 143, Potassium Level 2.6*L, Chloride Level 102, Carbon Dioxide Level 32, Anion Gap 10 , Blood Urea Nitrogen 16, Creatinine 1.7H, Estimat Glomerular Filtration Rate 38.2, Glucose Level 102, Calcium Level 9.4, Magnesium Level 1.6L, Pro-B-Type Natriuretic Peptide 1887H 10/02/17 11:25: Activated Partial Thromboplast Time 50H Height (Feet): 5 Height (Inches): 7.00 Weight (Pounds): 222 General Appearance: no apparent distress, alert Neurologic: oriented x 3, depressed affect Peggy Rodas MD Oct 02, 2017 14:56
[2017-10-02] MEDS: cefTRIAXone 1 GM in D5W 55 ML IVPB SCH (15:16)
--- NOTE | 2017-10-02 15:18 | Consultation ---
Consult Note Consult Note asked to eval for high Cr The patient is a 51-year-old female, who apparently has known history of congestive heart failure. Three to four months ago, she was treated at a hospital where they told her that she has had a heart attack. She said that they started her on Lasix. She took the Lasix for a number of months, but she started feeling tightness in her legs, so she has stopped taking it. Over the past 3 or 4 months, she has had increasing amounts of shortness of breath and leg swelling to the point that she is limited in her ambulation even around the house. She does wake up frequently because of shortness of breath. She uses one pillow, but she eventually has to sleep in a sitting position or sit up in a sitting position and not go to sleep. She does have some dizziness and lightheadedness. No chest pain or pressure. There is no palpitation. Assessment/Plan - KEELY - suspect superimposed on CKD CKD likely due to DM & or HTN Patient has 3+ Proteinuria - CHF exacerbation, acute on chronic systolic heart failure, EF < 30 % - due to med non compliance - increased apical echo possible lv thrombus - Pleural effusion - on TTE, due to CHF - Possible RLL PNA - on CXR, ? effusion vs infiltrate - Possible UTI - dirty catch - DM2 - HTN Systemic & Pulmonary - Non compliance with Meds - TR and MR Optimize cardiac status Avoid Nephrotoxics Monitor renal parameters Keep BP and BS in check Per orders Kelton Byrne MD Oct 02, 2017 15:18
[2017-10-02 16:00] VITALS: BP 102/67
[2017-10-02] MEDS: Azithromycin 500 MG in D5W 275 ML IV SCH (16:08)
[2017-10-02] MEDS: HydrALAZINE 25mg tab ORAL SCH (17:28)
--- NOTE | 2017-10-02 18:20 | Pulmonology Progress Note ---
Assessment/Plan Assessment/Plan ASSESSMENT: * RLL opacity * CHF with ADHF * Possible LV thrombus * KEELY on CKD * DM * HTN PLAN: * Optimize pulmonary hygiene/mobilize as tolerated * Titrate down FiO2 to keep SaO2 > 90% * CTx/Azithro (D4) * Monitor volumes and renal function, diuresis as tolerated * CT chest * Monitor effusion * Continue A/C * F/U cards recs * Aspiration precautions Terence Donato MD Subjective Allergies: Coded Allergies: No Known Allergies (Unverified , 09/28/17) Subjective -1.1, AFVSS, O2 needs stable Less SOB, no cough, no wheezing, no CP, no F/C Objective Last 24 Hour Vital Signs Date Time Temp Pulse Resp B/P (MAP) Pulse Ox O2 Delivery O2 Flow Rate FiO2 10/02/17 17:28 102/67 10/02/17 16:00 97.5 100 22 102/67 (79) 98 97.5 10/02/17 12:00 104 10/02/17 12:00 97.3 103 20 113/74 (87) 96 97.3 10/02/17 11:52 110/75 10/02/17 09:00 Nasal Cannula 2.0 10/02/17 08:53 110/71 10/02/17 08:00 104 10/02/17 08:00 97.0 101 20 129/93 (105) 97 97.0 10/02/17 05:46 127/97 10/02/17 04:00 97.7 97 19 127/103 (111) 96 97.7 10/02/17 03:38 97 10/02/17 00:00 97.7 102 18 127/97 (107) 97 97.7 10/01/17 23:57 98 10/01/17 23:41 127/97 10/01/17 21:00 Nasal Cannula 2.0 10/01/17 20:00 97.7 104 18 129/97 (108) 97 97.7 10/01/17 19:23 107 Intake and Output 10/01/17 10/02/17 19:00 07:00 Intake Total 350 ml 120 ml Output Total 1600 ml Balance 350 ml -1480 ml Intake Oral 350 ml 120 ml Output Urine Total 1600 ml # Voids 3 # Bowel Movements 1 General Appearance: WD/WN, no acute distress HEENT: normocephalic, atraumatic, anicteric, mucous membranes moist Respiratory/Chest: chest wall non-tender, lungs clear - but decreased @ bases Cardiovascular: normal peripheral pulses, normal rate, regular rhythm Abdomen: normal bowel sounds, soft, non tender, no organomegaly, non distended , no mass Extremities: no cyanosis, no clubbing, other - trace KELSIE Laboratory Tests 10/01/17 19:10: Activated Partial Thromboplast Time 60H 10/02/17 03:01: Activated Partial Thromboplast Time > 150*H, White Blood Count 4.8, Red Blood Count 4.55, Hemoglobin 13.5, Hematocrit 41.9, Mean Corpuscular Volume 92, Mean Corpuscular Hemoglobin 29.8, Mean Corpuscular Hemoglobin Concent 32.3, Red Cell Distribution Width 16.1H, Platelet Count 214, Mean Platelet Volume 7.9, Neutrophils (%) (Auto) 58.1, Lymphocytes (%) (Auto) 31.5, Monocytes (%) (Auto) 6.7, Eosinophils (%) (Auto) 2.9, Basophils (%) (Auto) 0.8, Sodium Level 143, Potassium Level 2.6*L, Chloride Level 102, Carbon Dioxide Level 32, Anion Gap 10 , Blood Urea Nitrogen 16, Creatinine 1.7H, Estimat Glomerular Filtration Rate 38.2, Glucose Level 102, Calcium Level 9.4, Magnesium Level 1.6L, Pro-B-Type Natriuretic Peptide 1887H 10/02/17 04:30: C-Reactive Protein, Quantitative 1.6H 10/02/17 11:25: Activated Partial Thromboplast Time 50H Current Medications Medications (Trade) Dose Ordered Sig/Sonam Route PRN Reason Start Time Stop Time Status Last Admin Dose Admin Acetaminophen (Tylenol) 650 mg Q6HR PRN ORAL Mild Pain (Pain Scale 1-3) 09/29/17 03:30 10/29/17 03:29 09/29/17 12:23 Acetaminophen/ Hydrocodone Bitart ([place] 10/325) 1 tab Q6HR PRN ORAL For Pain 09/29/17 03:30 10/06/17 03:29 10/02/17 15:16 Acetaminophen/ Hydrocodone Bitart ([place] 5/325) 1 tab Q6H PRN ORAL For Pain 09/29/17 03:30 10/06/17 03:29 Azithromycin 500 mg/Dextrose 275 ml @ 275 mls/hr Q24HRS IV 09/29/17 16:00 10/05/17 16:59 10/02/17 16:08 Bumetanide (Bumex) 1 mg Q12HR IV 09/29/17 09:15 10/29/17 09:14 10/02/17 08:52 Ceftriaxone Sodium 1 gm/ Dextrose 55 ml @ 110 mls/hr Q24H IVPB 09/29/17 15:30 10/04/17 15:29 10/02/17 15:16 Dextrose (Dextrose 50%) 25 ml STAT PRN IV Hypoglycemia 09/29/17 03:30 10/29/17 03:29 Dextrose (Dextrose 50%) 50 ml STAT PRN IV Hypoglycemia 09/29/17 03:30 10/29/17 03:29 Docusate Sodium (Colace) 100 mg TWICE A DAY ORAL 10/01/17 18:00 10/31/17 17:59 10/02/17 17:28 Duloxetine HCl (Cymbalta) 30 mg DAILY ORAL 10/02/17 09:00 11/01/17 08:59 10/02/17 08:54 Heparin Sodium/ Dextrose 500 ml @ 23.166 mls/ hr adjust per protocol IV 10/02/17 12:45 11/01/17 12:44 10/02/17 12:47 Hydralazine HCl (Apresoline) 10 mg Q6HR PRN ORAL For High Blood Pressure 09/29/17 03:30 10/29/17 03:29 Hydralazine HCl (Apresoline) 25 mg Q6HR ORAL 10/02/17 18:00 11/01/17 17:59 10/02/17 17:28 Insulin Aspart (NovoLOG) BEFORE MEALS AND HS SUBQ 09/29/17 06:30 10/29/17 06:29 10/02/17 11:18 Isosorbide Mononitrate (Imdur) 30 mg DAILY ORAL 09/29/17 12:00 10/29/17 11:59 10/02/17 08:53 Lactobacillus Acidophilus (Culturelle) 1 tab TWICE A DAY ORAL 09/29/17 18:00 10/29/17 17:59 10/02/17 17:28 Metolazone (Zaroxolyn) 5 mg BID ORAL 10/02/17 09:00 11/01/17 08:59 10/02/17 17:29 Ondansetron HCl (Zofran) 4 mg Q4HR PRN IVP Nausea & Vomiting 09/29/17 03:30 10/29/17 03:29 Potassium Chloride (K-Dur) 40 meq TWICE A DAY ORAL 10/02/17 18:00 10/05/17 17:59 10/02/17 17:28 Quetiapine Fumarate (SEROquel) 25 mg BEDTIME ORAL 10/01/17 21:00 10/31/17 20:59 10/01/17 20:36 Terence Donato MD Oct 02, 2017 18:20
[2017-10-02 20:00] VITALS: BP 103/71
[2017-10-03] VITALS: BP 104/74
[2017-10-03] MEDS: HydrALAZINE 25mg tab ORAL SCH ×4 (00:19→16:55)
[2017-10-03 02:37] LABS: BASOPHILS % (AUTO) 0.7 % (0.0-2.0); EOSINOPHILS % (AUTO) 4.8 % (0.0-3.0); HEMATOCRIT 37.8 % (37.0-47.0); HEMOGLOBIN 11.9 G/DL (12.0-16.0); LYMPHOCYTES % (AUTO) 35.2 % (20.0-45.0); MEAN CORPUSCULAR VOLUME 91 FL (80-99); MONOCYTES % (AUTO) 7.8 % (1.0-10.0); NEUTROPHILS % (AUTO) 51.4 % (45.0-75.0); PLATELET COUNT 213 K/UL (150-450); RED BLOOD COUNT 4.14 M/UL (4.20-5.40); RED CELL DISTRIBUTION WIDTH 15.7 % (11.6-14.8); WHITE BLOOD COUNT 4.2 K/UL (4.8-10.8)
[2017-10-03 03:06] LABS: ALANINE AMINOTRANSFERASE 29 U/L (12-78); ALBUMIN 2.7 G/DL (3.4-5.0); ALBUMIN/GLOBULIN RATIO 0.8 (1.0-2.7); ALKALINE PHOSPHATASE 76 U/L (46-116); ANION GAP 4 mmol/L (5-15); ASPARTATE AMINO TRANSFERASE 16 U/L (15-37); BILIRUBIN,TOTAL 0.8 MG/DL (0.2-1.0); BLOOD UREA NITROGEN 13 mg/dL (7-18); CARBON DIOXIDE 36 MMOL/L (21-32); CHLORIDE 99 MMOL/L (98-107); CHOLESTEROL 142 MG/DL (< 200); CREATINE KINASE 63 U/L (26-308); CREATININE 1.7 MG/DL (0.55-1.30); FERRITIN 48 NG/ML (8-388); GAMMA GLUTAMYL TRANSPEPTIDASE 81 U/L (5-85); HDL CHOLESTEROL 57 MG/DL (40-60); PHOSPHORUS 4.9 MG/DL (2.5-4.9); POTASSIUM 2.9 MMOL/L (3.5-5.1); SODIUM 139 MMOL/L (136-145); TRIGLYCERIDES 79 MG/DL (30-150)
[2017-10-03] MEDS ORDERED: Heparin 5000 units/ml inj IV SCH (03:15)
[2017-10-03] MEDS: Heparin 25,000u/D5W 500ml 500 ML IV SCH ×2 (03:27→09:41)
[2017-10-03 03:39] LABS: % IRON SATURATION 18 % (15-50); IRON 55 ug/dL (50-175); TOTAL IRON BINDING CAPACITY 307 ug/dL (250-450)
[2017-10-03 04:00] VITALS: BP 123/94
[2017-10-03] MEDS: NovoLOG Insulin Flexpen SUBQ SCH ×4 (06:01→21:00)
[2017-10-03 08:00] VITALS: BP 120/73
[2017-10-03] MEDS: Lactobacillus-GG tablet ORAL SCH ×2 (09:26→16:56)
[2017-10-03] MEDS: Bumetanide 0.25mg/ml 4ml IV SCH ×2 (09:26→21:16)
[2017-10-03] MEDS: Imdur 30mg tab ORAL SCH (09:27)
[2017-10-03] MEDS: DULoxetine 30mg cap ORAL SCH (09:27)
[2017-10-03] MEDS: Docusate 100mg cap ORAL SCH ×2 (09:27→16:55)
[2017-10-03 12:00] VITALS: BP 117/86
--- NOTE | 2017-10-03 12:00 | Diagnostic Imaging Report ---
Indication: Shortness of breath Technique: CT chest was performed utilizing automated exposure control without intravenous contrast material. Axial, sagittal and coronal images were generated. CT dose: Total DLP 990.93 mGycm; CTDI vol 27.17 mGy Comparison: None Findings: Small bilateral pleural effusions, right greater than left, with adjacent likely compressive atelectasis in the lower lobes. There is no pneumothorax. There are bilateral subcentimeter groundglass nodules that appear to spare the pleural surface suggesting a centrilobular distribution. There is no appreciable septal thickening. Heart is not enlarged. There is trace pericardial fluid. There is hypoattenuation of the blood pool relative to the intraventricular septum suggesting anemia. Thoracic aorta and main pulmonary artery appear normal in caliber. No appreciable pathologically enlarged mediastinal lymphadenopathy however evaluation is limited without IV contrast. Thyroid grossly unremarkable. Imaged upper abdomen grossly unremarkable. Mild degenerative changes in the thoracic spine. No acute osseous abnormality. IMPRESSION: Noncontrast CT of the chest reveals: * Small bilateral pleural effusions, right greater than left, with adjacent likely compressive atelectasis in the bilateral lower lobes * Bilateral groundglass nodular densities. Findings are nonspecific and may be infectious or inflammatory in etiology. The possibility of malignancy/neoplasm is thought less likely but not entirely excluded. Clinical correlation and follow-up exam recommended. * Findings suggestive of anemia. Correlate with CBC. The CT scanner at [facility] is accredited by the [employer] and the scans are performed using protocols designed to limit radiation exposure to as low as reasonably achievable to attain images of sufficient resolution adequate for diagnostic evaluation.
--- NOTE | 2017-10-03 12:31 | Pulmonology Progress Note ---
Assessment/Plan Assessment/Plan ASSESSMENT: * RLL opacity * CHF with ADHF * Possible LV thrombus * Faint b GG nodular opacities * KEELY on CKD * DM * HTN PLAN: * Optimize pulmonary hygiene/mobilize as tolerated * Titrate down FiO2 to keep SaO2 > 90% * CTx/Azithro (D5) * Monitor volumes and renal function, diuresis as tolerated * Repeat CT chest in 3 months to evaluate faint BiB GGO's * Monitor effusion * Continue A/C * F/U cards recs * Aspiration precautions Terence Donato MD Subjective Allergies: Coded Allergies: No Known Allergies (Unverified , 09/28/17) Subjective -1.3, AFVSS, O2 needs stable Less SOB, no cough, no wheezing, no CP, no F/C CT reviewed with small L > R effusion and BiB GGO's Objective Last 24 Hour Vital Signs Date Time Temp Pulse Resp B/P (MAP) Pulse Ox O2 Delivery O2 Flow Rate FiO2 10/03/17 09:27 120/73 10/03/17 09:00 Nasal Cannula 2.0 10/03/17 08:00 107 10/03/17 08:00 98.6 116 22 120/73 (89) 99 98.6 10/03/17 05:42 132/94 10/03/17 04:00 97.6 107 22 123/94 (104) 97 97.6 10/03/17 03:52 95 10/03/17 00:19 107/74 10/03/17 00:18 106 10/03/17 00:00 97.7 112 22 104/74 (84) 98 97.7 10/02/17 21:00 Nasal Cannula 2.0 10/02/17 20:00 97.9 106 23 103/71 (82) 96 97.9 10/02/17 19:24 109 10/02/17 17:28 102/67 10/02/17 16:00 103 10/02/17 16:00 97.5 100 22 102/67 (79) 98 97.5 Intake and Output 10/02/17 10/03/17 19:00 07:00 # Voids 3 2 # Bowel Movements 1 1 General Appearance: WD/WN, no acute distress HEENT: normocephalic, mucous membranes moist Respiratory/Chest: chest wall non-tender, lungs clear, normal breath sounds, no respiratory distress, no accessory muscle use Cardiovascular: normal peripheral pulses, normal rate, regular rhythm Abdomen: normal bowel sounds, soft, non tender, no organomegaly, non distended , no mass Extremities: no cyanosis, no clubbing, other - trace edema Laboratory Tests 10/02/17 18:45: Activated Partial Thromboplast Time > 150*H 10/03/17 01:03: Urine Eosinophils None seen 10/03/17 02:20: Activated Partial Thromboplast Time 55H, White Blood Count 4.2L, Red Blood Count 4.14L, Hemoglobin 11.9L, Hematocrit 37.8, Mean Corpuscular Volume 91, Mean Corpuscular Hemoglobin 28.7, Mean Corpuscular Hemoglobin Concent 31.5L, Red Cell Distribution Width 15.7H, Platelet Count 213, Mean Platelet Volume 6.7 , Neutrophils (%) (Auto) 51.4, Lymphocytes (%) (Auto) 35.2, Monocytes (%) (Auto ) 7.8, Eosinophils (%) (Auto) 4.8H, Basophils (%) (Auto) 0.7, Sodium Level 139, Potassium Level 2.9L, Chloride Level 99, Carbon Dioxide Level 36H, Anion Gap 4L , Blood Urea Nitrogen 13, Creatinine 1.7H, Estimat Glomerular Filtration Rate 38.2, Glucose Level 98, Hemoglobin A1c 6.4H, Uric Acid 10.7H, Calcium Level 9.0 , Phosphorus Level 4.9, Magnesium Level 1.9, Iron Level 55, Total Iron Binding Capacity 307, Percent Iron Saturation 18, Unsaturated Iron Binding 252, Ferritin 48, Total Bilirubin 0.8, Gamma Glutamyl Transpeptidase 81, Aspartate Amino Transf (AST/SGOT) 16, Alanine Aminotransferase (ALT/SGPT) 29, Alkaline Phosphatase 76, Total Creatine Kinase 63, Pro-B-Type Natriuretic Peptide 1012H, Total Protein 5.9L, Albumin 2.7L, Globulin 3.2, Albumin/Globulin Ratio 0.8L, Triglycerides Level 79, Cholesterol Level 142, LDL Cholesterol 79, HDL Cholesterol 57, Cholesterol/HDL Ratio 2.5L, Vitamin B12 Level 1009H, Folate 4.6L 10/03/17 09:15: Activated Partial Thromboplast Time 57H Current Medications Medications (Trade) Dose Ordered Sig/Sonam Route PRN Reason Start Time Stop Time Status Last Admin Dose Admin Acetaminophen (Tylenol) 650 mg Q6HR PRN ORAL Mild Pain (Pain Scale 1-3) 09/29/17 03:30 10/29/17 03:29 09/29/17 12:23 Acetaminophen/ Hydrocodone Bitart ([place] 10/325) 1 tab Q6HR PRN ORAL For Pain 09/29/17 03:30 10/06/17 03:29 10/02/17 15:16 Acetaminophen/ Hydrocodone Bitart ([place] 5/325) 1 tab Q6H PRN ORAL For Pain 09/29/17 03:30 10/06/17 03:29 Azithromycin 500 mg/Dextrose 275 ml @ 275 mls/hr Q24HRS IV 09/29/17 16:00 10/08/17 15:59 10/02/17 16:08 Bumetanide (Bumex) 1 mg Q12HR IV 09/29/17 09:15 10/29/17 09:14 10/03/17 09:26 Ceftriaxone Sodium 1 gm/ Dextrose 55 ml @ 110 mls/hr Q24H IVPB 09/29/17 15:30 10/08/17 15:29 10/02/17 15:16 Dextrose (Dextrose 50%) 25 ml STAT PRN IV Hypoglycemia 09/29/17 03:30 10/29/17 03:29 Dextrose (Dextrose 50%) 50 ml STAT PRN IV Hypoglycemia 09/29/17 03:30 10/29/17 03:29 Docusate Sodium (Colace) 100 mg TWICE A DAY ORAL 10/01/17 18:00 10/31/17 17:59 10/03/17 09:27 Duloxetine HCl (Cymbalta) 30 mg DAILY ORAL 10/02/17 09:00 11/01/17 08:59 10/03/17 09:27 Folic Acid (Folate) 2 mg DAILY ORAL 10/03/17 09:00 11/02/17 08:59 10/03/17 09:26 Heparin Sodium/ Dextrose 500 ml @ 18.954 mls/ hr adjust per protocol IV 10/03/17 03:15 11/01/17 12:44 10/03/17 09:41 Hydralazine HCl (Apresoline) 10 mg Q6HR PRN ORAL For High Blood Pressure 09/29/17 03:30 10/29/17 03:29 Hydralazine HCl (Apresoline) 25 mg Q6HR ORAL 10/02/17 18:00 11/01/17 17:59 10/03/17 05:42 Insulin Aspart (NovoLOG) BEFORE MEALS AND HS SUBQ 09/29/17 06:30 10/29/17 06:29 10/02/17 11:18 Isosorbide Mononitrate (Imdur) 30 mg DAILY ORAL 09/29/17 12:00 10/29/17 11:59 10/03/17 09:27 Lactobacillus Acidophilus (Culturelle) 1 tab TWICE A DAY ORAL 09/29/17 18:00 10/29/17 17:59 10/03/17 09:26 Metolazone (Zaroxolyn) 5 mg BID ORAL 10/02/17 09:00 11/01/17 08:59 10/03/17 09:27 Ondansetron HCl (Zofran) 4 mg Q4HR PRN IVP Nausea & Vomiting 09/29/17 03:30 10/29/17 03:29 Potassium Chloride (K-Dur) 40 meq QID ORAL 10/03/17 09:00 11/02/17 08:59 10/03/17 09:27 Quetiapine Fumarate (SEROquel) 25 mg BEDTIME ORAL 10/01/17 21:00 10/31/17 20:59 10/02/17 21:01 Terence Donato MD Oct 03, 2017 12:31
--- NOTE | 2017-10-03 13:15 | General Progress Note ---
Assessment/Plan Status: progressing Assessment/Plan #CHF exacerbation, acute on chronic systolic heart failure, EF < 30 % - due to med non compliance #increased apical signal on echo possible lv thrombus #KEELY - suspect superimposed on CKD #Pleural effusion - on TTE, due to CHF #Possible RLL PNA - on CXR, ? effusion vs infiltrate #Possible UTI - dirty catch #DM2 #HTN #Hypokalemia - cardiology consulted, appreciate recs - heparin gtt refused by patient- started enoxaprin - bridge to warfatin - Tn elevated, stable - TTE w/ reduced ef - diuresis per cards: bumex and metolazone - asa - dilt, imdur - pulm consult, appreciate recs - CAP coverage w/ ceftriaxone and azithro - UTI coverage w/ ceftriaxone - resp & urine cx - supplemental o2 prn - KEELY- renal consulted -f/u labs - insulin sliding scale achs - dm/cardiac diet - dvt ppx: hep gtt - full code - replete electrolyes anticipate pt will require in pt mgt x 1-2 days, DC to SNF once stable I spent 45 min on this case and 25 min on counseling and or are coordination time of note may not reflect time of clinical encounter Subjective Date patient seen: Oct 03, 2017 Time patient seen: 12:22 Constitutional: Reports: malaise, weakness HEENT: Reports: no symptoms Cardiovascular: Reports: no symptoms Respiratory: Reports: no symptoms Gastrointestinal/Abdominal: Reports: no symptoms Genitourinary: Reports: no symptoms Neurologic/Psychiatric: Reports: no symptoms Endocrine: Reports: no symptoms Hematologic/Lymphatic: Reports: no symptoms Allergies: Coded Allergies: No Known Allergies (Unverified , 09/28/17) Subjective No acute events overnight Patient resting in bed Refusing IV heparin States will take enoxaparin feels fatigued No chest pain or dyspnea Objective Last 24 Hour Vital Signs Date Time Temp Pulse Resp B/P (MAP) Pulse Ox O2 Delivery O2 Flow Rate FiO2 10/03/17 09:27 120/73 10/03/17 09:00 Nasal Cannula 2.0 10/03/17 08:00 107 10/03/17 08:00 98.6 116 22 120/73 (89) 99 98.6 10/03/17 05:42 132/94 10/03/17 04:00 97.6 107 22 123/94 (104) 97 97.6 10/03/17 03:52 95 10/03/17 00:19 107/74 10/03/17 00:18 106 10/03/17 00:00 97.7 112 22 104/74 (84) 98 97.7 10/02/17 21:00 Nasal Cannula 2.0 10/02/17 20:00 97.9 106 23 103/71 (82) 96 97.9 10/02/17 19:24 109 10/02/17 17:28 102/67 10/02/17 16:00 103 10/02/17 16:00 97.5 100 22 102/67 (79) 98 97.5 Intake and Output 10/02/17 10/03/17 19:00 07:00 # Voids 3 2 # Bowel Movements 1 1 Laboratory Tests 10/02/17 18:45: Activated Partial Thromboplast Time > 150*H 10/03/17 01:03: Urine Eosinophils None seen 10/03/17 02:20: Activated Partial Thromboplast Time 55H, White Blood Count 4.2L, Red Blood Count 4.14L, Hemoglobin 11.9L, Hematocrit 37.8, Mean Corpuscular Volume 91, Mean Corpuscular Hemoglobin 28.7, Mean Corpuscular Hemoglobin Concent 31.5L, Red Cell Distribution Width 15.7H, Platelet Count 213, Mean Platelet Volume 6.7 , Neutrophils (%) (Auto) 51.4, Lymphocytes (%) (Auto) 35.2, Monocytes (%) (Auto ) 7.8, Eosinophils (%) (Auto) 4.8H, Basophils (%) (Auto) 0.7, Sodium Level 139, Potassium Level 2.9L, Chloride Level 99, Carbon Dioxide Level 36H, Anion Gap 4L , Blood Urea Nitrogen 13, Creatinine 1.7H, Estimat Glomerular Filtration Rate 38.2, Glucose Level 98, Hemoglobin A1c 6.4H, Uric Acid 10.7H, Calcium Level 9.0 , Phosphorus Level 4.9, Magnesium Level 1.9, Iron Level 55, Total Iron Binding Capacity 307, Percent Iron Saturation 18, Unsaturated Iron Binding 252, Ferritin 48, Total Bilirubin 0.8, Gamma Glutamyl Transpeptidase 81, Aspartate Amino Transf (AST/SGOT) 16, Alanine Aminotransferase (ALT/SGPT) 29, Alkaline Phosphatase 76, Total Creatine Kinase 63, Pro-B-Type Natriuretic Peptide 1012H, Total Protein 5.9L, Albumin 2.7L, Globulin 3.2, Albumin/Globulin Ratio 0.8L, Triglycerides Level 79, Cholesterol Level 142, LDL Cholesterol 79, HDL Cholesterol 57, Cholesterol/HDL Ratio 2.5L, Vitamin B12 Level 1009H, Folate 4.6L 10/03/17 09:15: Activated Partial Thromboplast Time 57H Height (Feet): 5 Height (Inches): 7.00 Weight (Pounds): 198 General Appearance: no apparent distress, thin EENT: PERRL/EOMI Neck: non-tender Cardiovascular: normal peripheral pulses Respiratory/Chest: chest wall non-tender, decreased breath sounds Abdomen: normal bowel sounds, non tender Pelvis: normal external exam Extremities: normal range of motion, non-tender Edema: no edema noted Arm (L), no edema noted Arm (R) 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 Oct 03, 2017 13:15
--- NOTE | 2017-10-03 14:18 | General Progress Note ---
Assessment/Plan Assessment/Plan MDD Encephalopathy -cymbalta 30mg qam -seroquel 25mg qhs -provided ro/st xanxa prn Subjective Date patient seen: Oct 03, 2017 Neurologic/Psychiatric: Reports: anxiety, depressed, emotional problems Allergies: Coded Allergies: No Known Allergies (Unverified , 09/28/17) Objective Last 24 Hour Vital Signs Date Time Temp Pulse Resp B/P (MAP) Pulse Ox O2 Delivery O2 Flow Rate FiO2 10/03/17 12:00 105 10/03/17 12:00 98.2 107 21 117/86 (96) 98 98.2 10/03/17 09:27 120/73 10/03/17 09:00 Nasal Cannula 2.0 10/03/17 08:00 107 10/03/17 08:00 98.6 116 22 120/73 (89) 99 98.6 10/03/17 05:42 132/94 10/03/17 04:00 97.6 107 22 123/94 (104) 97 97.6 10/03/17 03:52 95 10/03/17 00:19 107/74 10/03/17 00:18 106 10/03/17 00:00 97.7 112 22 104/74 (84) 98 97.7 10/02/17 21:00 Nasal Cannula 2.0 10/02/17 20:00 97.9 106 23 103/71 (82) 96 97.9 10/02/17 19:24 109 10/02/17 17:28 102/67 10/02/17 16:00 103 10/02/17 16:00 97.5 100 22 102/67 (79) 98 97.5 Intake and Output 10/02/17 10/03/17 19:00 07:00 # Voids 3 2 # Bowel Movements 1 1 Laboratory Tests 10/02/17 18:45: Activated Partial Thromboplast Time > 150*H 10/03/17 01:03: Urine Eosinophils None seen 10/03/17 02:20: Activated Partial Thromboplast Time 55H, White Blood Count 4.2L, Red Blood Count 4.14L, Hemoglobin 11.9L, Hematocrit 37.8, Mean Corpuscular Volume 91, Mean Corpuscular Hemoglobin 28.7, Mean Corpuscular Hemoglobin Concent 31.5L, Red Cell Distribution Width 15.7H, Platelet Count 213, Mean Platelet Volume 6.7 , Neutrophils (%) (Auto) 51.4, Lymphocytes (%) (Auto) 35.2, Monocytes (%) (Auto ) 7.8, Eosinophils (%) (Auto) 4.8H, Basophils (%) (Auto) 0.7, Sodium Level 139, Potassium Level 2.9L, Chloride Level 99, Carbon Dioxide Level 36H, Anion Gap 4L , Blood Urea Nitrogen 13, Creatinine 1.7H, Estimat Glomerular Filtration Rate 38.2, Glucose Level 98, Hemoglobin A1c 6.4H, Uric Acid 10.7H, Calcium Level 9.0 , Phosphorus Level 4.9, Magnesium Level 1.9, Iron Level 55, Total Iron Binding Capacity 307, Percent Iron Saturation 18, Unsaturated Iron Binding 252, Ferritin 48, Total Bilirubin 0.8, Gamma Glutamyl Transpeptidase 81, Aspartate Amino Transf (AST/SGOT) 16, Alanine Aminotransferase (ALT/SGPT) 29, Alkaline Phosphatase 76, Total Creatine Kinase 63, Pro-B-Type Natriuretic Peptide 1012H, Total Protein 5.9L, Albumin 2.7L, Globulin 3.2, Albumin/Globulin Ratio 0.8L, Triglycerides Level 79, Cholesterol Level 142, LDL Cholesterol 79, HDL Cholesterol 57, Cholesterol/HDL Ratio 2.5L, Vitamin B12 Level 1009H, Folate 4.6L 10/03/17 09:15: Activated Partial Thromboplast Time 57H Height (Feet): 5 Height (Inches): 7.00 Weight (Pounds): 198 General Appearance: no apparent distress, alert Neurologic: oriented x 3, depressed affect Peggy Rodas MD Oct 03, 2017 14:18
[2017-10-03] MEDS ORDERED: ALPRAZolam 0.25mg tab ORAL PRN (14:30)
[2017-10-03] MEDS: Azithromycin 250mg tab ORAL SCH (14:59)
[2017-10-03] MEDS: cefTRIAXone 1 GM in D5W 55 ML IVPB SCH (15:11)
[2017-10-03 16:00] VITALS: BP 112/89
--- NOTE | 2017-10-03 16:05 | Nephrology Progress Note ---
Assessment/Plan Problem List: (1) CKD (chronic kidney disease) (2) Acute exacerbation of CHF (congestive heart failure) (3) Cardiomyopathy (4) Proteinuria (5) Hypertension Assessment - KEELY - suspect superimposed on CKD CKD likely due to DM & or HTN Patient has 3+ Proteinuria - Refuses meds and uncoaporative at times - CHF exacerbation, acute on chronic systolic heart failure, EF < 30 % - due to med non compliance - increased apical echo possible lv thrombus - Pleural effusion - on TTE, due to CHF - Possible RLL PNA - on CXR, ? effusion vs infiltrate - Possible UTI - dirty catch - DM2 - HTN Systemic & Pulmonary - Non compliance with Meds - TR and MR Plan K supplement- Optimize cardiac status Avoid Nephrotoxics Monitor renal parameters Keep BP and BS in check Per orders Subjective ROS Limited/Unobtainable: No Constitutional: Reports: malaise, weakness Objective Objective Last 24 Hour Vital Signs Date Time Temp Pulse Resp B/P (MAP) Pulse Ox O2 Delivery O2 Flow Rate FiO2 10/03/17 12:00 105 10/03/17 12:00 98.2 107 21 117/86 (96) 98 98.2 10/03/17 09:27 120/73 10/03/17 09:00 Nasal Cannula 2.0 10/03/17 08:00 107 10/03/17 08:00 98.6 116 22 120/73 (89) 99 98.6 10/03/17 05:42 132/94 10/03/17 04:00 97.6 107 22 123/94 (104) 97 97.6 10/03/17 03:52 95 10/03/17 00:19 107/74 10/03/17 00:18 106 10/03/17 00:00 97.7 112 22 104/74 (84) 98 97.7 10/02/17 21:00 Nasal Cannula 2.0 10/02/17 20:00 97.9 106 23 103/71 (82) 96 97.9 10/02/17 19:24 109 10/02/17 17:28 102/67 10/02/17 16:00 103 10/02/17 16:00 97.5 100 22 102/67 (79) 98 97.5 Intake and Output 10/02/17 10/03/17 19:00 07:00 # Voids 3 2 # Bowel Movements 1 1 Laboratory Tests 10/02/17 18:45: Activated Partial Thromboplast Time > 150*H 10/03/17 01:03: Urine Eosinophils None seen 10/03/17 02:20: Activated Partial Thromboplast Time 55H, White Blood Count 4.2L, Red Blood Count 4.14L, Hemoglobin 11.9L, Hematocrit 37.8, Mean Corpuscular Volume 91, Mean Corpuscular Hemoglobin 28.7, Mean Corpuscular Hemoglobin Concent 31.5L, Red Cell Distribution Width 15.7H, Platelet Count 213, Mean Platelet Volume 6.7 , Neutrophils (%) (Auto) 51.4, Lymphocytes (%) (Auto) 35.2, Monocytes (%) (Auto ) 7.8, Eosinophils (%) (Auto) 4.8H, Basophils (%) (Auto) 0.7, Sodium Level 139, Potassium Level 2.9L, Chloride Level 99, Carbon Dioxide Level 36H, Anion Gap 4L , Blood Urea Nitrogen 13, Creatinine 1.7H, Estimat Glomerular Filtration Rate 38.2, Glucose Level 98, Hemoglobin A1c 6.4H, Uric Acid 10.7H, Calcium Level 9.0 , Phosphorus Level 4.9, Magnesium Level 1.9, Iron Level 55, Total Iron Binding Capacity 307, Percent Iron Saturation 18, Unsaturated Iron Binding 252, Ferritin 48, Total Bilirubin 0.8, Gamma Glutamyl Transpeptidase 81, Aspartate Amino Transf (AST/SGOT) 16, Alanine Aminotransferase (ALT/SGPT) 29, Alkaline Phosphatase 76, Total Creatine Kinase 63, Pro-B-Type Natriuretic Peptide 1012H, Total Protein 5.9L, Albumin 2.7L, Globulin 3.2, Albumin/Globulin Ratio 0.8L, Triglycerides Level 79, Cholesterol Level 142, LDL Cholesterol 79, HDL Cholesterol 57, Cholesterol/HDL Ratio 2.5L, Vitamin B12 Level 1009H, Folate 4.6L 10/03/17 09:15: Activated Partial Thromboplast Time 57H Height (Feet): 5 Height (Inches): 7.00 Weight (Pounds): 198 General Appearance: no apparent distress Cardiovascular: tachycardia Respiratory/Chest: decreased breath sounds Abdomen: distended Objective no other changes Kelton Byrne MD Oct 03, 2017 16:05
[2017-10-03] MEDS ORDERED: NS 275ml ONE (16:52)
[2017-10-03] MEDS ORDERED: Tubing IV Secondary IV ONE (17:00)
--- NOTE | 2017-10-03 19:54 | Cardiology Progress Note ---
Assessment/Plan Assessment/Plan acute on chronic chf med non complaince increaed apical echo possible lv thrombus htn renal insuf pulm htn mr sig tr sig nsvt need na fluid restriction which i discussed iwth pt bumex zoroxolyn combo Isordil hydralazine combination eventually will need bb once chf is better repeat labs in am nwo on anticoagulation [facility] coumadin cross over had insurance so coumadin should be ok electolyte repletion tele sinus nsvt cr stable will star on low dose coreg noton acei / arb due ot renal insuf until ok with renal Subjective Cardiovascular: Denies: chest pain, lightheadedness Respiratory: Denies: shortness of breath Gastrointestinal/Abdominal: Denies: abdomen distended Genitourinary: Denies: burning Objective Last 24 Hour Vital Signs Date Time Temp Pulse Resp B/P (MAP) Pulse Ox O2 Delivery O2 Flow Rate FiO2 10/03/17 16:00 98.6 116 22 112/89 (97) 100 98.6 10/03/17 16:00 113 10/03/17 12:00 105 10/03/17 12:00 98.2 107 21 117/86 (96) 98 98.2 10/03/17 09:27 120/73 10/03/17 09:00 Nasal Cannula 2.0 10/03/17 08:00 107 10/03/17 08:00 98.6 116 22 120/73 (89) 99 98.6 10/03/17 05:42 132/94 10/03/17 04:00 97.6 107 22 123/94 (104) 97 97.6 10/03/17 03:52 95 10/03/17 00:19 107/74 10/03/17 00:18 106 10/03/17 00:00 97.7 112 22 104/74 (84) 98 97.7 10/02/17 21:00 Nasal Cannula 2.0 10/02/17 20:00 97.9 106 23 103/71 (82) 96 97.9 General Appearance: no apparent distress Neck: supple Cardiovascular: normal rate, regular rhythm Respiratory/Chest: lungs clear Abdomen: normal bowel sounds, non tender, soft Extremities: moderate edema Intake and Output 10/02/17 10/03/17 19:00 07:00 # Voids 3 2 # Bowel Movements 1 1 Laboratory Tests Test 10/03/17 01:03 10/03/17 02:20 10/03/17 09:15 Urine Eosinophils None seen (NONE SEEN) White Blood Count 4.2 K/UL (4.8-10.8) L Red Blood Count 4.14 M/UL (4.20-5.40) L Hemoglobin 11.9 G/DL (12.0-16.0) L Hematocrit 37.8 % (37.0-47.0) Mean Corpuscular Volume 91 FL (80-99) Mean Corpuscular Hemoglobin 28.7 PG (27.0-31.0) Mean Corpuscular Hemoglobin Concent 31.5 G/DL (32.0-36.0) L Red Cell Distribution Width 15.7 % (11.6-14.8) H Platelet Count 213 K/UL (150-450) Mean Platelet Volume 6.7 FL (6.5-10.1) Neutrophils (%) (Auto) 51.4 % (45.0-75.0) Lymphocytes (%) (Auto) 35.2 % (20.0-45.0) Monocytes (%) (Auto) 7.8 % (1.0-10.0) Eosinophils (%) (Auto) 4.8 % (0.0-3.0) H Basophils (%) (Auto) 0.7 % (0.0-2.0) Activated Partial Thromboplast Time 55 SEC (23-33) H 57 SEC (23-33) H Sodium Level 139 MMOL/L (136-145) Potassium Level 2.9 MMOL/L (3.5-5.1) L Chloride Level 99 MMOL/L (98-107) Carbon Dioxide Level 36 MMOL/L (21-32) H Anion Gap 4 mmol/L (5-15) L Blood Urea Nitrogen 13 mg/dL (7-18) Creatinine 1.7 MG/DL (0.55-1.30) H Estimat Glomerular Filtration Rate 38.2 mL/min (>60) Glucose Level 98 MG/DL (74-106) Hemoglobin A1c 6.4 % (4.3-6.0) H Uric Acid 10.7 MG/DL (2.6-7.2) H Calcium Level 9.0 MG/DL (8.5-10.1) Phosphorus Level 4.9 MG/DL (2.5-4.9) Magnesium Level 1.9 MG/DL (1.8-2.4) Iron Level 55 ug/dL (50-175) Total Iron Binding Capacity 307 ug/dL (250-450) Percent Iron Saturation 18 % (15-50) Unsaturated Iron Binding 252 ug/dL (112-346) Ferritin 48 NG/ML (8-388) Total Bilirubin 0.8 MG/DL (0.2-1.0) Gamma Glutamyl Transpeptidase 81 U/L (5-85) Aspartate Amino Transf (AST/SGOT) 16 U/L (15-37) Alanine Aminotransferase (ALT/SGPT) 29 U/L (12-78) Alkaline Phosphatase 76 U/L (46-116) Total Creatine Kinase 63 U/L (26-308) Pro-B-Type Natriuretic Peptide 1012 pg/mL (0-125) H Total Protein 5.9 G/DL (6.4-8.2) L Albumin 2.7 G/DL (3.4-5.0) L Globulin 3.2 g/dL Albumin/Globulin Ratio 0.8 (1.0-2.7) L Triglycerides Level 79 MG/DL (30-150) Cholesterol Level 142 MG/DL (< 200) LDL Cholesterol 79 mg/dL (<100) HDL Cholesterol 57 MG/DL (40-60) Cholesterol/HDL Ratio 2.5 (3.3-4.4) L Vitamin B12 Level 1009 PG/ML (193-986) H Folate 4.6 NG/ML (8.6-58.9) L Serafin Eagle MD Oct 03, 2017 19:54
[2017-10-03 20:00] VITALS: BP 128/68
[2017-10-03] MEDS: Enoxaparin 100mg Inj SUBQ SCH (21:20)
[2017-10-04] VITALS: BP 112/80
[2017-10-04] MEDS: HydrALAZINE 25mg tab ORAL SCH ×5 (06:00→21:42)
[2017-10-04] MEDS: NovoLOG Insulin Flexpen SUBQ SCH ×4 (06:18→20:53)
[2017-10-04 08:00] VITALS: BP 100/75
[2017-10-04 08:59] LABS: ANION GAP 3 mmol/L (5-15); BLOOD UREA NITROGEN 12 mg/dL (7-18); CALCIUM 9.4 MG/DL (8.5-10.1); CARBON DIOXIDE 36 MMOL/L (21-32); CHLORIDE 99 MMOL/L (98-107); CREATININE 1.8 MG/DL (0.55-1.30); POTASSIUM 3.7 MMOL/L (3.5-5.1); SODIUM 138 MMOL/L (136-145)
[2017-10-04] MEDS: Bumetanide 0.25mg/ml 4ml IV SCH (09:00)
[2017-10-04] MEDS: DULoxetine 30mg cap ORAL SCH (09:03)
[2017-10-04] MEDS: Lactobacillus-GG tablet ORAL SCH ×2 (09:03→17:14)
[2017-10-04] MEDS: Docusate 100mg cap ORAL SCH ×2 (09:03→17:13)
[2017-10-04] MEDS: Enoxaparin 100mg Inj SUBQ SCH ×2 (09:05→21:43)
[2017-10-04 09:08] LABS: ALANINE AMINOTRANSFERASE 35 U/L (12-78); ALBUMIN 2.6 G/DL (3.4-5.0); ALBUMIN/GLOBULIN RATIO 0.8 (1.0-2.7); ALKALINE PHOSPHATASE 76 U/L (46-116); ASPARTATE AMINO TRANSFERASE 23 U/L (15-37); BILIRUBIN,TOTAL 0.8 MG/DL (0.2-1.0); PHOSPHORUS 4.1 MG/DL (2.5-4.9)
[2017-10-04] MEDS: Imdur 30mg tab ORAL SCH (09:15)
[2017-10-04 10:01] VITALS: BP 104/74
[2017-10-04 11:31] VITALS: BP 103/66
--- NOTE | 2017-10-04 11:52 | General Progress Note ---
Assessment/Plan Status: stable Assessment/Plan MDD Encephalopathy -Cymbalta 30mg qam -Seroquel 25mg qhs -provided ro/st -Xanax prn Subjective Date patient seen: Oct 04, 2017 Neurologic/Psychiatric: Reports: anxiety, depressed Allergies: Coded Allergies: No Known Allergies (Unverified , 09/28/17) Subjective the pt is on liquid diet calmer cooperative Objective Last 24 Hour Vital Signs Date Time Temp Pulse Resp B/P (MAP) Pulse Ox O2 Delivery O2 Flow Rate FiO2 10/04/17 11:31 98.0 100 18 103/66 (78) 97 98.0 10/04/17 10:04 Room Air 10/04/17 10:01 98.2 107 18 104/74 (84) 97 98.2 10/04/17 09:15 100/75 10/04/17 09:00 105 100/75 10/04/17 08:00 100.0 101 100/75 (83) 100.0 20 10/04/17 07:31 109 10/04/17 03:59 95 10/04/17 00:00 97.3 110 112/80 (91) 97.3 23 10/03/17 23:58 104 10/03/17 21:16 89 128/72 10/03/17 21:00 Nasal Cannula 2.0 10/03/17 20:00 98.8 89 20 128/68 (88) 97 98.8 10/03/17 19:51 108 10/03/17 16:00 98.6 116 22 112/89 (97) 100 98.6 10/03/17 16:00 113 10/03/17 12:00 105 10/03/17 12:00 98.2 107 21 117/86 (96) 98 98.2 Intake and Output 10/03/17 10/04/17 19:00 07:00 Intake Total 400 ml Balance 400 ml Intake Oral 400 ml # Voids 2 3 # Bowel Movements 1 1 Laboratory Tests 10/04/17 08:00: Sodium Level 138, Potassium Level 3.7, Chloride Level 99, Carbon Dioxide Level 36H, Anion Gap 3L, Blood Urea Nitrogen 12, Creatinine 1.8H, Estimat Glomerular Filtration Rate 35.8, Glucose Level 114H, Calcium Level 9.4, Phosphorus Level 4.1, Magnesium Level 1.7L, Total Bilirubin 0.8, Aspartate Amino Transf (AST/SGOT ) 23, Alanine Aminotransferase (ALT/SGPT) 35, Alkaline Phosphatase 76, Pro-B- Type Natriuretic Peptide 1153H, Total Protein 5.9L, Albumin 2.6L, Globulin 3.3, Albumin/Globulin Ratio 0.8L 10/04/17 10:50: Urine Eosinophils [Pending] Height (Feet): 5 Height (Inches): 7.00 Weight (Pounds): 200 General Appearance: no apparent distress, alert Neurologic: oriented x 3, responsive, depressed affect Peggy Rodas MD Oct 04, 2017 11:52
--- NOTE | 2017-10-04 13:51 | Nephrology Progress Note ---
Assessment/Plan Problem List: (1) CKD (chronic kidney disease) (2) Acute exacerbation of CHF (congestive heart failure) (3) Cardiomyopathy (4) Proteinuria (5) Hypertension Assessment - KEELY - suspect superimposed on CKD CKD likely due to DM & or HTN Patient has 3+ Proteinuria - Refuses meds and uncoaporative at times - CHF exacerbation, acute on chronic systolic heart failure, EF < 30 % - due to med non compliance - increased apical echo possible lv thrombus - Pleural effusion - on TTE, due to CHF - Possible RLL PNA - on CXR, ? effusion vs infiltrate - Possible UTI - dirty catch - DM2 - HTN Systemic & Pulmonary - Non compliance with Meds - TR and MR Plan K supplement- mag IV Adjust doses of Coreg and Hydralazine DC IV Bumex increase PO Zaroxolyn Optimize cardiac status Avoid Nephrotoxics Monitor renal parameters Keep BP and BS in check Per orders Subjective ROS Limited/Unobtainable: No Constitutional: Reports: malaise, weakness Objective Objective Last 24 Hour Vital Signs Date Time Temp Pulse Resp B/P (MAP) Pulse Ox O2 Delivery O2 Flow Rate FiO2 10/04/17 12:00 103/66 10/04/17 11:36 104 10/04/17 11:31 98.0 100 18 103/66 (78) 97 98.0 10/04/17 10:04 Room Air 10/04/17 10:01 98.2 107 18 104/74 (84) 97 98.2 10/04/17 09:15 100/75 10/04/17 09:00 105 100/75 10/04/17 08:00 100.0 101 100/75 (83) 100.0 20 10/04/17 07:31 109 10/04/17 03:59 95 10/04/17 00:00 97.3 110 112/80 (91) 97.3 23 10/03/17 23:58 104 10/03/17 21:16 89 128/72 10/03/17 21:00 Nasal Cannula 2.0 10/03/17 20:00 98.8 89 20 128/68 (88) 97 98.8 10/03/17 19:51 108 10/03/17 16:00 98.6 116 22 112/89 (97) 100 98.6 10/03/17 16:00 113 Intake and Output 10/03/17 10/04/17 19:00 07:00 Intake Total 400 ml Balance 400 ml Intake Oral 400 ml # Voids 2 3 # Bowel Movements 1 1 Laboratory Tests 10/04/17 08:00: Sodium Level 138, Potassium Level 3.7, Chloride Level 99, Carbon Dioxide Level 36H, Anion Gap 3L, Blood Urea Nitrogen 12, Creatinine 1.8H, Estimat Glomerular Filtration Rate 35.8, Glucose Level 114H, Calcium Level 9.4, Phosphorus Level 4.1, Magnesium Level 1.7L, Total Bilirubin 0.8, Aspartate Amino Transf (AST/SGOT ) 23, Alanine Aminotransferase (ALT/SGPT) 35, Alkaline Phosphatase 76, Pro-B- Type Natriuretic Peptide 1153H, Total Protein 5.9L, Albumin 2.6L, Globulin 3.3, Albumin/Globulin Ratio 0.8L 10/04/17 10:50: Urine Eosinophils None seen Height (Feet): 5 Height (Inches): 7.00 Weight (Pounds): 200 Cardiovascular: tachycardia Respiratory/Chest: decreased breath sounds Abdomen: distended Objective no other changes Kelton Byrne MD Oct 04, 2017 13:51
--- NOTE | 2017-10-04 13:58 | General Progress Note ---
Assessment/Plan Status: stable Assessment/Plan #CHF exacerbation, acute on chronic systolic heart failure, EF < 30 % - due to med non compliance #increased apical signal on echo possible lv thrombus #KEELY - suspect superimposed on CKD #Pleural effusion - on TTE, due to CHF #Possible RLL PNA - on CXR, ? effusion vs infiltrate #Possible UTI - dirty catch #DM2 #HTN #Hypokalemia - cardiology consulted, appreciate recs - heparin gtt refused by patient- started enoxaprin - bridge to warfarin - Tn elevated, stable - TTE w/ reduced ef - diuresis per cards: bumex and metolazone - asa - dilt, imdur - pulm consult, appreciate recs - CAP coverage w/ ceftriaxone and azithro - UTI coverage w/ ceftriaxone - resp & urine cx - supplemental o2 prn - KEELY- renal consulted -f/u labs - insulin sliding scale achs - dm/cardiac diet - dvt ppx: hep gtt - full code - replete electrolyes prn anticipate pt will require in pt mgt x 1-2 days, DC to SNF once stable I spent 45 min on this case and 25 min on counseling and or are coordination time of note may not reflect time of clinical encounter Subjective Date patient seen: Oct 04, 2017 Time patient seen: 13:33 ROS Limited/Unobtainable: No Constitutional: Reports: malaise, weakness HEENT: Reports: no symptoms Cardiovascular: Reports: no symptoms Respiratory: Reports: SOB with excertion Gastrointestinal/Abdominal: Reports: no symptoms Genitourinary: Reports: no symptoms Neurologic/Psychiatric: Reports: no symptoms Endocrine: Reports: no symptoms Hematologic/Lymphatic: Reports: no symptoms Allergies: Coded Allergies: No Known Allergies (Unverified , 09/28/17) Subjective No acute events overnight Chart reviewed Patient resting in bed Enoxoparin started feels "hot"- no fevers or chills Objective Last 24 Hour Vital Signs Date Time Temp Pulse Resp B/P (MAP) Pulse Ox O2 Delivery O2 Flow Rate FiO2 10/04/17 12:00 103/66 10/04/17 11:36 104 10/04/17 11:31 98.0 100 18 103/66 (78) 97 98.0 10/04/17 10:04 Room Air 10/04/17 10:01 98.2 107 18 104/74 (84) 97 98.2 8/9/18 09:15 100/75 10/04/17 09:00 105 100/75 10/04/17 08:00 100.0 101 100/75 (83) 100.0 20 10/04/17 07:31 109 10/04/17 03:59 95 10/04/17 00:00 97.3 110 112/80 (91) 97.3 23 10/03/17 23:58 104 10/03/17 21:16 89 128/72 10/03/17 21:00 Nasal Cannula 2.0 10/03/17 20:00 98.8 89 20 128/68 (88) 97 98.8 10/03/17 19:51 108 10/03/17 16:00 98.6 116 22 112/89 (97) 100 98.6 10/03/17 16:00 113 Intake and Output 10/03/17 10/04/17 19:00 07:00 Intake Total 400 ml Balance 400 ml Intake Oral 400 ml # Voids 2 3 # Bowel Movements 1 1 Laboratory Tests 10/04/17 08:00: Sodium Level 138, Potassium Level 3.7, Chloride Level 99, Carbon Dioxide Level 36H, Anion Gap 3L, Blood Urea Nitrogen 12, Creatinine 1.8H, Estimat Glomerular Filtration Rate 35.8, Glucose Level 114H, Calcium Level 9.4, Phosphorus Level 4.1, Magnesium Level 1.7L, Total Bilirubin 0.8, Aspartate Amino Transf (AST/SGOT ) 23, Alanine Aminotransferase (ALT/SGPT) 35, Alkaline Phosphatase 76, C- Reactive Protein, Quantitative [Pending], Pro-B-Type Natriuretic Peptide 1153H, Total Protein 5.9L, Albumin 2.6L, Globulin 3.3, Albumin/Globulin Ratio 0.8L 10/04/17 10:50: Urine Eosinophils None seen Height (Feet): 5 Height (Inches): 7.00 Weight (Pounds): 200 General Appearance: alert, thin EENT: PERRL/EOMI, normal ENT inspection Neck: non-tender Cardiovascular: normal peripheral pulses, normal rate, regular rhythm Respiratory/Chest: chest wall non-tender, decreased breath sounds Abdomen: normal bowel sounds, non tender, soft Pelvis: normal external exam Extremities: normal range of motion Edema: no edema noted Arm (L), no edema noted Arm (R) 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 Oct 04, 2017 13:58
[2017-10-04] MEDS ORDERED: Spironolactone 25mg tab ORAL ONE (14:00)
[2017-10-04] MEDS: Azithromycin 250mg tab ORAL SCH (14:03)
--- NOTE | 2017-10-04 15:07 | Pulmonology Progress Note ---
Assessment/Plan Assessment/Plan ASSESSMENT: * RLL opacity * CHF with ADHF * Possible LV thrombus * Faint b GG nodular opacities * KEELY on CKD * DM * HTN PLAN: * Optimize pulmonary hygiene/mobilize as tolerated * Titrate down FiO2 to keep SaO2 > 90% * CTx/Azithro (D6) * Monitor volumes and renal function, diuresis as tolerated * Repeat CT chest in 3 months to evaluate faint BiB GGO's * Monitor effusion * Continue A/C * F/U cards recs * Aspiration precautions Terence Donato MD Subjective Allergies: Coded Allergies: No Known Allergies (Unverified , 09/28/17) Subjective KASSIDY, AFVSS, stable on RA Less SOB, no cough, no wheezing, no CP, no F/C Objective Last 24 Hour Vital Signs Date Time Temp Pulse Resp B/P (MAP) Pulse Ox O2 Delivery O2 Flow Rate FiO2 10/04/17 14:00 103/66 10/04/17 12:00 103/66 10/04/17 11:36 104 10/04/17 11:31 98.0 100 18 103/66 (78) 97 98.0 10/04/17 10:04 Room Air 10/04/17 10:01 98.2 107 18 104/74 (84) 97 98.2 10/04/17 09:15 100/75 10/04/17 09:00 105 100/75 10/04/17 08:00 100.0 101 100/75 (83) 100.0 20 10/04/17 07:31 109 10/04/17 03:59 95 10/04/17 00:00 97.3 110 112/80 (91) 97.3 23 10/03/17 23:58 104 10/03/17 21:16 89 128/72 10/03/17 21:00 Nasal Cannula 2.0 10/03/17 20:00 98.8 89 20 128/68 (88) 97 98.8 10/03/17 19:51 108 10/03/17 16:00 98.6 116 22 112/89 (97) 100 98.6 10/03/17 16:00 113 Intake and Output 10/03/17 10/04/17 19:00 07:00 Intake Total 400 ml Balance 400 ml Intake Oral 400 ml # Voids 2 3 # Bowel Movements 1 1 General Appearance: WD/WN, no acute distress HEENT: normocephalic, atraumatic, anicteric, mucous membranes moist Respiratory/Chest: chest wall non-tender, lungs clear, normal breath sounds, no respiratory distress, no accessory muscle use Cardiovascular: normal peripheral pulses, normal rate, regular rhythm Abdomen: normal bowel sounds, soft, non tender, no organomegaly, non distended , no mass Extremities: no cyanosis, no clubbing, no edema Laboratory Tests 10/04/17 08:00: Sodium Level 138, Potassium Level 3.7, Chloride Level 99, Carbon Dioxide Level 36H, Anion Gap 3L, Blood Urea Nitrogen 12, Creatinine 1.8H, Estimat Glomerular Filtration Rate 35.8, Glucose Level 114H, Calcium Level 9.4, Phosphorus Level 4.1, Magnesium Level 1.7L, Total Bilirubin 0.8, Aspartate Amino Transf (AST/SGOT ) 23, Alanine Aminotransferase (ALT/SGPT) 35, Alkaline Phosphatase 76, C- Reactive Protein, Quantitative 1.5H, Pro-B-Type Natriuretic Peptide 1153H, Total Protein 5.9L, Albumin 2.6L, Globulin 3.3, Albumin/Globulin Ratio 0.8L 10/04/17 10:50: Urine Eosinophils None seen Current Medications Medications (Trade) Dose Ordered Sig/Sonam Route PRN Reason Start Time Stop Time Status Last Admin Dose Admin Acetaminophen (Tylenol) 650 mg Q6HR PRN ORAL Mild Pain (Pain Scale 1-3) 09/29/17 03:30 10/29/17 03:29 09/29/17 12:23 Acetaminophen/ Hydrocodone Bitart ([place] 10/325) 1 tab Q6HR PRN ORAL For Pain 09/29/17 03:30 10/06/17 03:29 10/02/17 15:16 Acetaminophen/ Hydrocodone Bitart ([place] 5/325) 1 tab Q6H PRN ORAL For Pain 09/29/17 03:30 10/06/17 03:29 Alprazolam (Xanax) 0.25 mg Q6H PRN ORAL For Anxiety 10/03/17 14:30 10/10/17 14:29 Azithromycin (Zithromax) 250 mg Q24H ORAL 10/03/17 15:00 10/10/17 14:59 10/04/17 14:03 Carvedilol (Coreg) 6.25 mg EVERY 12 HOURS ORAL 10/04/17 21:00 11/03/17 20:59 Ceftriaxone Sodium 1 gm/ Dextrose 55 ml @ 110 mls/hr Q24H IVPB 09/29/17 15:30 10/08/17 15:29 10/02/17 15:16 Dextrose (Dextrose 50%) 25 ml STAT PRN IV Hypoglycemia 09/29/17 03:30 10/29/17 03:29 Dextrose (Dextrose 50%) 50 ml STAT PRN IV Hypoglycemia 09/29/17 03:30 10/29/17 03:29 Docusate Sodium (Colace) 100 mg TWICE A DAY ORAL 10/01/17 18:00 10/31/17 17:59 10/04/17 09:03 Duloxetine HCl (Cymbalta) 30 mg DAILY ORAL 10/02/17 09:00 11/01/17 08:59 10/04/17 09:03 Enoxaparin Sodium (Lovenox) 90 mg EVERY 12 HOURS SUBQ 10/03/17 21:00 11/02/17 20:59 10/04/17 09:05 Folic Acid (Folate) 2 mg DAILY ORAL 10/03/17 09:00 11/02/17 08:59 10/04/17 09:03 Hydralazine HCl (Apresoline) 10 mg Q6HR PRN ORAL For High Blood Pressure 09/29/17 03:30 10/29/17 03:29 Hydralazine HCl (Apresoline) 25 mg Q8HR ORAL 10/04/17 14:00 11/01/17 17:59 Insulin Aspart (NovoLOG) BEFORE MEALS AND HS SUBQ 09/29/17 06:30 10/29/17 06:29 10/02/17 11:18 Isosorbide Mononitrate (Imdur) 30 mg DAILY ORAL 09/29/17 12:00 10/29/17 11:59 10/04/17 09:15 Lactobacillus Acidophilus (Culturelle) 1 tab TWICE A DAY ORAL 09/29/17 18:00 10/29/17 17:59 10/04/17 09:03 Magnesium Sulfate 100 ml @ 100 mls/hr Q1H IVPB 10/04/17 14:00 10/04/17 15:59 10/04/17 14:57 Metolazone (Zaroxolyn) 10 mg BID ORAL 10/04/17 18:00 11/01/17 08:59 Ondansetron HCl (Zofran) 4 mg Q4HR PRN IVP Nausea & Vomiting 09/29/17 03:30 10/29/17 03:29 Potassium Chloride (K-Dur) 40 meq QID ORAL 10/03/17 09:00 11/02/17 08:59 10/04/17 13:10 Quetiapine Fumarate (SEROquel) 25 mg BEDTIME ORAL 10/01/17 21:00 10/31/17 20:59 10/03/17 21:16 Spironolactone (Aldactone) 25 mg DAILY ORAL 10/05/17 09:00 11/04/17 08:59 Terence Donato MD Oct 04, 2017 15:07
[2017-10-04] MEDS: cefTRIAXone 1 GM in D5W 55 ML IVPB SCH (15:45)
[2017-10-04 16:48] VITALS: BP 103/66
[2017-10-04 20:00] VITALS: BP 125/89
--- NOTE | 2017-10-04 20:03 | Cardiology Progress Note ---
Assessment/Plan Assessment/Plan acute on chronic chf med non complaince increaed apical echo possible lv thrombus htn renal insuf pulm htn mr sig tr sig nsvt need na fluid restriction which i discussed iwth pt Isordil hydralazine combination repeat labs in am nwo on anticoagulation lwmh to coumadin reorderd electolyte repletion tele sinus nsvt cr stable on low dose coreg not on acei / arb due ot renal insuf until ok with renal switch to po diurtic in anticipation of dc mag adn electolyrte repeltion d/w nephrology will consider starting on entresto when available Subjective Cardiovascular: Denies: chest pain, lightheadedness Respiratory: Denies: shortness of breath Gastrointestinal/Abdominal: Denies: abdominal pain Genitourinary: Denies: burning Objective Last 24 Hour Vital Signs Date Time Temp Pulse Resp B/P (MAP) Pulse Ox O2 Delivery O2 Flow Rate FiO2 10/04/17 16:48 98.0 108 18 103/66 (78) 97 98.0 10/04/17 15:47 114 10/04/17 14:00 103/66 10/04/17 12:00 103/66 10/04/17 11:36 104 10/04/17 11:31 98.0 100 18 103/66 (78) 97 98.0 10/04/17 10:04 Room Air 10/04/17 10:01 98.2 107 18 104/74 (84) 97 98.2 10/04/17 09:15 100/75 10/04/17 09:00 105 100/75 10/04/17 08:00 100.0 101 100/75 (83) 100.0 20 10/04/17 07:31 109 10/04/17 03:59 95 10/04/17 00:00 97.3 110 112/80 (91) 97.3 23 10/03/17 23:58 104 10/03/17 21:16 89 128/72 10/03/17 21:00 Nasal Cannula 2.0 10/03/17 20:00 98.8 89 20 128/68 (88) 97 98.8 General Appearance: alert Cardiovascular: normal rate Respiratory/Chest: lungs clear Abdomen: normal bowel sounds, non tender, soft Extremities: non-tender, trace edema Intake and Output 10/03/17 10/04/17 19:00 07:00 Intake Total 400 ml Balance 400 ml Intake Oral 400 ml # Voids 2 3 # Bowel Movements 1 1 Laboratory Tests Test 10/04/17 08:00 10/04/17 10:50 Sodium Level 138 MMOL/L (136-145) Potassium Level 3.7 MMOL/L (3.5-5.1) Chloride Level 99 MMOL/L (98-107) Carbon Dioxide Level 36 MMOL/L (21-32) H Anion Gap 3 mmol/L (5-15) L Blood Urea Nitrogen 12 mg/dL (7-18) Creatinine 1.8 MG/DL (0.55-1.30) H Estimat Glomerular Filtration Rate 35.8 mL/min (>60) Glucose Level 114 MG/DL (74-106) H Calcium Level 9.4 MG/DL (8.5-10.1) Phosphorus Level 4.1 MG/DL (2.5-4.9) Magnesium Level 1.7 MG/DL (1.8-2.4) L Total Bilirubin 0.8 MG/DL (0.2-1.0) Aspartate Amino Transf (AST/SGOT) 23 U/L (15-37) Alanine Aminotransferase (ALT/SGPT) 35 U/L (12-78) Alkaline Phosphatase 76 U/L (46-116) C-Reactive Protein, Quantitative 1.5 mg/dL (0.00-0.90) H Pro-B-Type Natriuretic Peptide 1153 pg/mL (0-125) H Total Protein 5.9 G/DL (6.4-8.2) L Albumin 2.6 G/DL (3.4-5.0) L Globulin 3.3 g/dL Albumin/Globulin Ratio 0.8 (1.0-2.7) L Urine Eosinophils None seen (NONE SEEN) Serafin Eagle MD Oct 04, 2017 20:03
[2017-10-04] MEDS: Carvedilol 6.25mg Tab ORAL SCH (21:41)
[2017-10-05] VITALS (7 sets, daily range): BP systolic 92–110; BP diastolic 62–80
[2017-10-05 05:34] LABS: BASOPHILS % (AUTO) 0.9 % (0.0-2.0); EOSINOPHILS % (AUTO) 6.6 % (0.0-3.0); HEMATOCRIT 38.2 % (37.0-47.0); HEMOGLOBIN 12.3 G/DL (12.0-16.0); LYMPHOCYTES % (AUTO) 39.1 % (20.0-45.0); MEAN CORPUSCULAR VOLUME 93 FL (80-99); NEUTROPHILS % (AUTO) 46.4 % (45.0-75.0); PLATELET COUNT 205 K/UL (150-450); RED BLOOD COUNT 4.13 M/UL (4.20-5.40); RED CELL DISTRIBUTION WIDTH 16.2 % (11.6-14.8); WHITE BLOOD COUNT 3.6 K/UL (4.8-10.8)
[2017-10-05] MEDS: HydrALAZINE 25mg tab ORAL SCH ×3 (05:56→21:28)
[2017-10-05 06:09] LABS: ALANINE AMINOTRANSFERASE 47 U/L (12-78); ALBUMIN 2.7 G/DL (3.4-5.0); ALBUMIN/GLOBULIN RATIO 0.8 (1.0-2.7); ALKALINE PHOSPHATASE 84 U/L (46-116); ANION GAP 5 mmol/L (5-15); ASPARTATE AMINO TRANSFERASE 36 U/L (15-37); BILIRUBIN,TOTAL 0.8 MG/DL (0.2-1.0); BLOOD UREA NITROGEN 11 mg/dL (7-18); CALCIUM 9.6 MG/DL (8.5-10.1); CARBON DIOXIDE 33 MMOL/L (21-32); CHLORIDE 100 MMOL/L (98-107); CREATININE 1.7 MG/DL (0.55-1.30); PHOSPHORUS 4.3 MG/DL (2.5-4.9); POTASSIUM 3.8 MMOL/L (3.5-5.1); SODIUM 138 MMOL/L (136-145)
[2017-10-05] MEDS: NovoLOG Insulin Flexpen SUBQ SCH ×4 (06:17→20:49)
--- NOTE | 2017-10-05 07:54 | Nephrology Progress Note ---
Assessment/Plan Problem List: (1) CKD (chronic kidney disease) (2) Acute exacerbation of CHF (congestive heart failure) (3) Cardiomyopathy (4) Proteinuria (5) Hypertension Assessment - KEELY - suspect superimposed on CKD CKD likely due to DM & or HTN Patient has 3+ Proteinuria - Refuses meds and uncoaporative at times - CHF exacerbation, acute on chronic systolic heart failure, EF < 30 % - due to med non compliance - increased apical echo possible lv thrombus - Pleural effusion - on TTE, due to CHF - Possible RLL PNA - on CXR, ? effusion vs infiltrate - Possible UTI - dirty catch - DM2 - HTN Systemic & Pulmonary - Non compliance with Meds - TR and MR Plan K supplement- as needed mag IV given Adjust doses of Coreg and Hydralazine DC IV Bumex increase PO Zaroxolyn Optimize cardiac status Avoid Nephrotoxics Monitor renal parameters Keep BP and BS in check Per orders Subjective ROS Limited/Unobtainable: No Constitutional: Reports: malaise Objective Objective Last 24 Hour Vital Signs Date Time Temp Pulse Resp B/P (MAP) Pulse Ox O2 Delivery O2 Flow Rate FiO2 10/05/17 05:56 92/64 10/05/17 04:00 89 10/05/17 04:00 97.6 92 18 92/64 (73) 99 97.6 10/05/17 00:00 97.0 94 20 101/66 (78) 100 97.0 10/04/17 21:42 125/89 10/04/17 21:41 112 125/89 10/04/17 21:00 Room Air 10/04/17 20:00 112 10/04/17 20:00 97.5 112 20 125/89 (101) 97 97.5 10/04/17 16:48 98.0 108 18 103/66 (78) 97 98.0 10/04/17 15:47 114 10/04/17 14:00 103/66 10/04/17 12:00 103/66 10/04/17 11:36 104 10/04/17 11:31 98.0 100 18 103/66 (78) 97 98.0 10/04/17 10:04 Room Air 10/04/17 10:01 98.2 107 18 104/74 (84) 97 98.2 10/04/17 09:15 100/75 10/04/17 09:00 105 100/10/04/17 08:00 100.0 101 100/ (83) 100.0 20 Intake and Output 10/04/17 10/05/17 19:00 07:00 Intake Total 400 ml Balance 400 ml Intake Oral 300 ml IV Total 100 ml # Voids 2 3 Laboratory Tests 10/04/17 08:00: Sodium Level 138, Potassium Level 3.7, Chloride Level 99, Carbon Dioxide Level 36H, Anion Gap 3L, Blood Urea Nitrogen 12, Creatinine 1.8H, Estimat Glomerular Filtration Rate 35.8, Glucose Level 114H, Calcium Level 9.4, Phosphorus Level 4.1, Magnesium Level 1.7L, Total Bilirubin 0.8, Aspartate Amino Transf (AST/SGOT ) 23, Alanine Aminotransferase (ALT/SGPT) 35, Alkaline Phosphatase 76, C- Reactive Protein, Quantitative 1.5H, Pro-B-Type Natriuretic Peptide 1153H, Total Protein 5.9L, Albumin 2.6L, Globulin 3.3, Albumin/Globulin Ratio 0.8L 10/04/17 10:50: Urine Eosinophils None seen 10/05/17 04:15: Sodium Level 138, Potassium Level 3.8, Chloride Level 100, Carbon Dioxide Level 33H, Anion Gap 5, Blood Urea Nitrogen 11, Creatinine 1.7H, Estimat Glomerular Filtration Rate 38.2, Glucose Level 84, Calcium Level 9.6, Phosphorus Level 4.3 , Magnesium Level 2.0, Total Bilirubin 0.8, Aspartate Amino Transf (AST/SGOT) 36 , Alanine Aminotransferase (ALT/SGPT) 47, Alkaline Phosphatase 84, Pro-B-Type Natriuretic Peptide 1067H, Total Protein 6.2L, Albumin 2.7L, Globulin 3.5, Albumin/Globulin Ratio 0.8L, White Blood Count 3.6L, Red Blood Count 4.13L, Hemoglobin 12.3, Hematocrit 38.2, Mean Corpuscular Volume 93, Mean Corpuscular Hemoglobin 29.8, Mean Corpuscular Hemoglobin Concent 32.1, Red Cell Distribution Width 16.2H, Platelet Count 205, Mean Platelet Volume 7.5, Neutrophils (%) (Auto) 46.4, Lymphocytes (%) (Auto) 39.1, Monocytes (%) (Auto) 7.0, Eosinophils (%) (Auto) 6.6H, Basophils (%) (Auto) 0.9, Uric Acid 9.9H Height (Feet): 5 Height (Inches): 7.00 Weight (Pounds): 186 General Appearance: no apparent distress Respiratory/Chest: decreased breath sounds Abdomen: soft Objective no other changes Kelton Byrne MD Oct 05, 2017 07:54
[2017-10-05] MEDS: Lactobacillus-GG tablet ORAL SCH ×2 (07:59→17:09)
[2017-10-05] MEDS: Imdur 30mg tab ORAL SCH (07:59)
[2017-10-05] MEDS: DULoxetine 30mg cap ORAL SCH (07:59)
[2017-10-05] MEDS: Carvedilol 6.25mg Tab ORAL SCH ×2 (07:59→21:28)
[2017-10-05] MEDS: Docusate 100mg cap ORAL SCH ×2 (08:00→17:10)
[2017-10-05] MEDS: Enoxaparin 100mg Inj SUBQ SCH ×2 (08:01→21:30)
[2017-10-05] MEDS: Spironolactone 25mg tab ORAL SCH (08:03)
[2017-10-05 09:27] LABS: INR 1.1 (0.9-1.1)
--- NOTE | 2017-10-05 11:55 | General Progress Note ---
Assessment/Plan Status: progressing Assessment/Plan #CHF exacerbation, acute on chronic systolic heart failure, EF < 30 % - due to med non compliance #increased apical signal on echo possible lv thrombus #KEELY - suspect superimposed on CKD #Pleural effusion - on TTE, due to CHF #Possible RLL PNA - on CXR, ? effusion vs infiltrate #Possible UTI - dirty catch #DM2 #HTN #Hypokalemia - cardiology consulted, appreciate recs - heparin gtt refused by patient- started enoxaprin - bridge to warfarin - Tn elevated, stable - TTE w/ reduced ef - diuresis per cards: bumex and metolazone- swiched to PO in anticipation of discharge - asa - dilt, imdur - pulm consult, appreciate recs - CAP coverage w/ ceftriaxone and azithro - UTI coverage w/ ceftriaxone - resp & urine cx - supplemental o2 prn - KEELY- renal consulted -f/u labs - insulin sliding scale achs - dm/cardiac diet - dvt ppx: hep gtt - full code - replete electrolyes prn anticipate pt will require in pt mgt x 1-2 days, DC to SNF once stable [facility] accepted patient I spent 45 min on this case and 25 min on counseling and or are coordination time of note may not reflect time of clinical encounter Subjective Date patient seen: Oct 05, 2017 Time patient seen: 12:45 ROS Limited/Unobtainable: No Constitutional: Reports: malaise, weakness HEENT: Reports: no symptoms Cardiovascular: Reports: no symptoms Respiratory: Reports: no symptoms Gastrointestinal/Abdominal: Reports: no symptoms Genitourinary: Reports: no symptoms Neurologic/Psychiatric: Reports: no symptoms Endocrine: Reports: no symptoms Hematologic/Lymphatic: Reports: no symptoms Allergies: Coded Allergies: No Known Allergies (Unverified , 09/28/17) Subjective No acute events overnight Chart reviewed Patient resting in bed Denies chest pain or dyspnea Objective Last 24 Hour Vital Signs Date Time Temp Pulse Resp B/P (MAP) Pulse Ox O2 Delivery O2 Flow Rate FiO2 10/05/17 09:00 Room Air 10/05/17 08:00 105 10/05/17 07:59 98 110/80 10/05/17 07:59 110/80 10/05/17 07:53 97.5 98 21 110/80 (90) 96 97.5 10/05/17 05:56 92/64 10/05/17 04:00 89 10/05/17 04:00 97.6 92 18 92/64 (73) 99 97.6 10/05/17 00:00 97.0 94 20 101/66 (78) 100 97.0 10/04/17 21:42 125/89 10/04/17 21:41 112 125/89 10/04/17 21:00 Room Air 10/04/17 20:00 112 10/04/17 20:00 97.5 112 20 125/89 (101) 97 97.5 10/04/17 16:48 98.0 108 18 103/66 (78) 97 98.0 10/04/17 15:47 114 10/04/17 14:00 103/66 10/04/17 12:00 Intake and Output 10/04/17 10/05/17 19:00 07:00 Intake Total 400 ml Balance 400 ml Intake Oral 300 ml IV Total 100 ml # Voids 2 3 Laboratory Tests 10/05/17 04:15: White Blood Count 3.6L, Red Blood Count 4.13L, Hemoglobin 12.3, Hematocrit 38.2 , Mean Corpuscular Volume 93, Mean Corpuscular Hemoglobin 29.8, Mean Corpuscular Hemoglobin Concent 32.1, Red Cell Distribution Width 16.2H, Platelet Count 205, Mean Platelet Volume 7.5, Neutrophils (%) (Auto) 46.4, Lymphocytes (%) (Auto) 39.1, Monocytes (%) (Auto) 7.0, Eosinophils (%) (Auto) 6.6H, Basophils (%) (Auto) 0.9, Sodium Level 138, Potassium Level 3.8, Chloride Level 100, Carbon Dioxide Level 33H, Anion Gap 5, Blood Urea Nitrogen 11, Creatinine 1.7H, Estimat Glomerular Filtration Rate 38.2, Glucose Level 84, Uric Acid 9.9H, Calcium Level 9.6, Phosphorus Level 4.3, Magnesium Level 2.0, Total Bilirubin 0.8, Aspartate Amino Transf (AST/SGOT) 36, Alanine Aminotransferase (ALT/SGPT) 47, Alkaline Phosphatase 84, Pro-B-Type Natriuretic Peptide 1067H, Total Protein 6.2L, Albumin 2.7L, Globulin 3.5, Albumin/Globulin Ratio 0.8L 10/05/17 08:55: Prothrombin Time 11.7H, Prothromb Time International Ratio 1.1 10/05/17 10:15: Urine Eosinophils None seen Height (Feet): 5 Height (Inches): 7.00 Weight (Pounds): 186 General Appearance: no apparent distress, thin EENT: PERRL/EOMI, normal ENT inspection, pharynx normal Neck: non-tender, supple Cardiovascular: normal peripheral pulses, normal rate, regular rhythm Respiratory/Chest: chest wall non-tender, decreased breath sounds Abdomen: normal bowel sounds, non tender Pelvis: normal external exam Extremities: normal range of motion Edema: no edema noted Arm (L), no edema noted Arm (R) 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 Oct 05, 2017 11:55
--- NOTE | 2017-10-05 12:18 | General Progress Note ---
Assessment/Plan Status: stable, progressing Assessment/Plan MDD Encephalopathy -Cymbalta 30mg qam -Seroquel 25mg qhs -provided ro/st -Xanax prn Subjective Date patient seen: Oct 05, 2017 Neurologic/Psychiatric: Reports: anxiety, depressed, emotional problems Allergies: Coded Allergies: No Known Allergies (Unverified , 09/28/17) Subjective the pt is doing well Objective Last 24 Hour Vital Signs Date Time Temp Pulse Resp B/P (MAP) Pulse Ox O2 Delivery O2 Flow Rate FiO2 10/05/17 09:00 Room Air 10/05/17 08:00 105 10/05/17 07:59 98 110/80 10/05/17 07:59 110/80 10/05/17 07:53 97.5 98 21 110/80 (90) 96 97.5 10/05/17 05:56 92/64 10/05/17 04:00 89 10/05/17 04:00 97.6 92 18 92/64 (73) 99 97.6 10/05/17 00:00 97.0 94 20 101/66 (78) 100 97.0 10/04/17 21:42 125/89 10/04/17 21:41 112 125/89 10/04/17 21:00 Room Air 10/04/17 20:00 112 10/04/17 20:00 97.5 112 20 125/89 (101) 97 97.5 10/04/17 16:48 98.0 108 18 103/66 (78) 97 98.0 10/04/17 15:47 114 10/04/17 14:00 103/66 Intake and Output 10/04/17 10/05/17 19:00 07:00 Intake Total 400 ml Balance 400 ml Intake Oral 300 ml IV Total 100 ml # Voids 2 3 Laboratory Tests 10/05/17 04:15: White Blood Count 3.6L, Red Blood Count 4.13L, Hemoglobin 12.3, Hematocrit 38.2 , Mean Corpuscular Volume 93, Mean Corpuscular Hemoglobin 29.8, Mean Corpuscular Hemoglobin Concent 32.1, Red Cell Distribution Width 16.2H, Platelet Count 205, Mean Platelet Volume 7.5, Neutrophils (%) (Auto) 46.4, Lymphocytes (%) (Auto) 39.1, Monocytes (%) (Auto) 7.0, Eosinophils (%) (Auto) 6.6H, Basophils (%) (Auto) 0.9, Sodium Level 138, Potassium Level 3.8, Chloride Level 100, Carbon Dioxide Level 33H, Anion Gap 5, Blood Urea Nitrogen 11, Creatinine 1.7H, Estimat Glomerular Filtration Rate 38.2, Glucose Level 84, Uric Acid 9.9H, Calcium Level 9.6, Phosphorus Level 4.3, Magnesium Level 2.0, Total Bilirubin 0.8, Aspartate Amino Transf (AST/SGOT) 36, Alanine Aminotransferase (ALT/SGPT) 47, Alkaline Phosphatase 84, Pro-B-Type Natriuretic Peptide 1067H, Total Protein 6.2L, Albumin 2.7L, Globulin 3.5, Albumin/Globulin Ratio 0.8L 10/05/17 08:55: Prothrombin Time 11.7H, Prothromb Time International Ratio 1.1 10/05/17 10:15: Urine Eosinophils None seen Height (Feet): 5 Height (Inches): 7.00 Weight (Pounds): 186 General Appearance: no apparent distress, alert Neurologic: oriented x 3, responsive, depressed affect Peggy Rodas MD Oct 05, 2017 12:18
[2017-10-05] MEDS: cefTRIAXone 1 GM in D5W 55 ML IVPB SCH (15:04)
[2017-10-05] MEDS: Azithromycin 250mg tab ORAL SCH (15:04)
[2017-10-05] MEDS ORDERED: Warfarin Sodium 5mg ORAL SCH (17:00)
--- NOTE | 2017-10-05 19:33 | Cardiology Progress Note ---
Assessment/Plan Assessment/Plan acute on chronic chf med non complaince increaed apical echo possible lv thrombus htn renal insuf pulm htn mr sig tr sig nsvt need na fluid restriction which i discussed with pt previoualy 1500 cc Isordil hydralazine combination repeat labs in am nwo on anticoagulation lwmh to coumadin reorderd electolyte repletion tele sinus nsvt short cr stable on low dose coreg not on acei / arb due ot renal insuf on po diurtic in anticipation of dc dr cotto ordered metolazone consider switch to demadex or bumex senior care (she dislikes lasix) hodl diuretics for lwo bp she looks better with respect to volume mag adn electolyrte repeltion will consider starting on entresto when available Subjective Cardiovascular: Denies: chest pain, irregular heart rate Respiratory: Denies: shortness of breath Genitourinary: Denies: burning Objective Last 24 Hour Vital Signs Date Time Temp Pulse Resp B/P (MAP) Pulse Ox O2 Delivery O2 Flow Rate FiO2 10/05/17 16:00 107 10/05/17 16:00 103 100/67 (78) 10/05/17 14:46 92/62 (72) 10/05/17 14:00 92/62 10/05/17 12:00 97.7 98 16 101/70 (80) 95 97.7 10/05/17 09:00 Room Air 10/05/17 08:00 105 10/05/17 07:59 98 110/80 10/05/17 07:59 110/80 10/05/17 07:53 97.5 98 21 110/80 (90) 96 97.5 10/05/17 05:56 92/64 10/05/17 04:00 89 10/05/17 04:00 97.6 92 18 92/64 (73) 99 97.6 10/05/17 00:00 97.0 94 20 101/66 (78) 100 97.0 10/04/17 21:42 125/89 10/04/17 21:41 112 125/89 10/04/17 21:00 Room Air 10/04/17 20:00 112 10/04/17 20:00 97.5 112 20 125/89 (101) 97 97.5 General Appearance: no apparent distress, other - walking to br adn back looks quiet stable not off balance Neck: supple Cardiovascular: normal rate, regular rhythm Respiratory/Chest: lungs clear Abdomen: normal bowel sounds, non tender, soft Extremities: trace edema Intake and Output 10/04/17 10/05/17 19:00 07:00 Intake Total 400 ml Balance 400 ml Intake Oral 300 ml IV Total 100 ml # Voids 2 3 Laboratory Tests Test 10/05/17 04:15 10/05/17 08:55 10/05/17 10:15 White Blood Count 3.6 K/UL (4.8-10.8) L Red Blood Count 4.13 M/UL (4.20-5.40) L Hemoglobin 12.3 G/DL (12.0-16.0) Hematocrit 38.2 % (37.0-47.0) Mean Corpuscular Volume 93 FL (80-99) Mean Corpuscular Hemoglobin 29.8 PG (27.0-31.0) Mean Corpuscular Hemoglobin Concent 32.1 G/DL (32.0-36.0) Red Cell Distribution Width 16.2 % (11.6-14.8) H Platelet Count 205 K/UL (150-450) Mean Platelet Volume 7.5 FL (6.5-10.1) Neutrophils (%) (Auto) 46.4 % (45.0-75.0) Lymphocytes (%) (Auto) 39.1 % (20.0-45.0) Monocytes (%) (Auto) 7.0 % (1.0-10.0) Eosinophils (%) (Auto) 6.6 % (0.0-3.0) H Basophils (%) (Auto) 0.9 % (0.0-2.0) Sodium Level 138 MMOL/L (136-145) Potassium Level 3.8 MMOL/L (3.5-5.1) Chloride Level 100 MMOL/L (98-107) Carbon Dioxide Level 33 MMOL/L (21-32) H Anion Gap 5 mmol/L (5-15) Blood Urea Nitrogen 11 mg/dL (7-18) Creatinine 1.7 MG/DL (0.55-1.30) H Estimat Glomerular Filtration Rate 38.2 mL/min (>60) Glucose Level 84 MG/DL (74-106) Uric Acid 9.9 MG/DL (2.6-7.2) H Calcium Level 9.6 MG/DL (8.5-10.1) Phosphorus Level 4.3 MG/DL (2.5-4.9) Magnesium Level 2.0 MG/DL (1.8-2.4) Total Bilirubin 0.8 MG/DL (0.2-1.0) Aspartate Amino Transf (AST/SGOT) 36 U/L (15-37) Alanine Aminotransferase (ALT/SGPT) 47 U/L (12-78) Alkaline Phosphatase 84 U/L (46-116) Pro-B-Type Natriuretic Peptide 1067 pg/mL (0-125) H Total Protein 6.2 G/DL (6.4-8.2) L Albumin 2.7 G/DL (3.4-5.0) L Globulin 3.5 g/dL Albumin/Globulin Ratio 0.8 (1.0-2.7) L Prothrombin Time 11.7 SEC (9.30-11.50) H Prothromb Time International Ratio 1.1 (0.9-1.1) Urine Eosinophils None seen (NONE SEEN) Serafin Eagle MD Oct 05, 2017 19:33
[2017-10-06] VITALS: BP 108/62
[2017-10-06 04:00] VITALS: BP 103/72
[2017-10-06] MEDS: HydrALAZINE 25mg tab ORAL SCH ×3 (06:02→21:30)
[2017-10-06] MEDS: NovoLOG Insulin Flexpen SUBQ SCH ×4 (06:02→21:00)
[2017-10-06 08:00] VITALS: BP 117/83
[2017-10-06 08:11] LABS: INR 1.1 (0.9-1.1)
[2017-10-06] MEDS: DULoxetine 30mg cap ORAL SCH (09:27)
[2017-10-06] MEDS: Lactobacillus-GG tablet ORAL SCH ×2 (09:27→17:29)
[2017-10-06] MEDS: Carvedilol 6.25mg Tab ORAL SCH ×3 (09:28→21:35)
[2017-10-06] MEDS: Docusate 100mg cap ORAL SCH ×2 (09:28→17:28)
[2017-10-06] MEDS: Imdur 30mg tab ORAL SCH (09:28)
[2017-10-06] MEDS: Spironolactone 25mg tab ORAL SCH (09:28)
[2017-10-06] MEDS: Enoxaparin 100mg Inj SUBQ SCH ×2 (09:31→21:34)
--- NOTE | 2017-10-06 09:37 | Nephrology Progress Note ---
Assessment/Plan Problem List: (1) CKD (chronic kidney disease) (2) Acute exacerbation of CHF (congestive heart failure) (3) Cardiomyopathy (4) Proteinuria (5) Hypertension Assessment - stable from renal stand - KEELY - suspect superimposed on CKD CKD likely due to DM & or HTN Patient has 3+ Proteinuria - Refuses meds and uncoaporative at times - CHF exacerbation, acute on chronic systolic heart failure, EF < 30 % - due to med non compliance - increased apical echo possible lv thrombus - Pleural effusion - on TTE, due to CHF - Possible RLL PNA - on CXR, ? effusion vs infiltrate - Possible UTI - dirty catch - DM2 - HTN Systemic & Pulmonary - Non compliance with Meds - TR and MR Plan K supplement- as needed mag IV given Adjust doses of Coreg and Hydralazine DC IV Bumex increase PO Zaroxolyn Optimize cardiac status Avoid Nephrotoxics Monitor renal parameters Keep BP and BS in check Per orders Subjective ROS Limited/Unobtainable: No Constitutional: Reports: malaise Objective Objective Last 24 Hour Vital Signs Date Time Temp Pulse Resp B/P (MAP) Pulse Ox O2 Delivery O2 Flow Rate FiO2 10/06/17 08:00 98.7 105 18 117/83 (94) 99 98.7 10/06/17 06:02 103/72 10/06/17 04:00 100 10/06/17 04:00 96.3 94 17 103/72 (82) 98 96.3 10/06/17 00:00 97.3 99 20 108/62 (77) 95 97.3 10/06/17 00:00 92 10/05/17 21:28 112 101/72 10/05/17 21:28 101/72 10/05/17 21:00 Room Air 10/05/17 20:00 112 10/05/17 20:00 97.9 107 19 101/72 (82) 99 97.9 10/05/17 16:00 107 10/05/17 16:00 103 100/67 (78) 10/05/17 14:46 92/62 (72) 10/05/17 14:00 92/62 10/05/17 12:00 97.7 98 16 101/70 (80) 95 97.7 Intake and Output 10/05/17 10/06/17 19:00 07:00 Intake Total 355 ml Balance 355 ml Intake Oral 245 ml IV Total 110 ml # Voids 1 3 Laboratory Tests 10/05/17 10:15: Urine Eosinophils None seen 10/06/17 06:45: Prothrombin Time 11.4, Prothromb Time International Ratio 1.1 Height (Feet): 5 Height (Inches): 7.00 Weight (Pounds): 185 General Appearance: no apparent distress Respiratory/Chest: decreased breath sounds Abdomen: soft, distended Objective no other changes Kelton Byrne MD Oct 06, 2017 09:37
[2017-10-06 12:00] VITALS: BP 99/73
[2017-10-06] MEDS: Azithromycin 250mg tab ORAL SCH (15:08)
[2017-10-06] MEDS: cefTRIAXone 1 GM in D5W 55 ML IVPB SCH (15:10)
[2017-10-06 16:00] VITALS: BP 106/87
[2017-10-06] MEDS ORDERED: Warfarin Sodium 7.5mg ORAL ONE (17:00)
--- NOTE | 2017-10-06 18:24 | Pulmonology Progress Note ---
Assessment/Plan Assessment/Plan ASSESSMENT: * RLL opacity * CHF with ADHF * Possible LV thrombus * Faint b GG nodular opacities * KEELY on CKD * DM * HTN PLAN: * Optimize pulmonary hygiene/mobilize as tolerated * Titrate down FiO2 to keep SaO2 > 90% * CTx/Azithro * Monitor volumes and renal function, diuresis as tolerated * Repeat CT chest in 3 months to evaluate faint BiB GGO's * Monitor effusion * Continue A/C * F/U cards recs * Aspiration precautions Subjective Constitutional: Reports: no symptoms Respiratory: Reports: shortness of breath Cardiovascular: Reports: chest pain Gastrointestinal/Abdominal: Reports: no symptoms Genitourinary: Reports: no symptoms Allergies: Coded Allergies: No Known Allergies (Unverified , 09/28/17) Subjective awake complains of leg pain and can't ambulate no cp nv or bleedingh toelriang po on RA Objective Last 24 Hour Vital Signs Date Time Temp Pulse Resp B/P (MAP) Pulse Ox O2 Delivery O2 Flow Rate FiO2 10/06/17 16:00 97.7 98 18 106/87 (93) 97 97.7 10/06/17 16:00 100 10/06/17 14:00 99/73 10/06/17 12:00 99 10/06/17 12:00 98.2 95 20 99/73 (82) 100 98.2 10/06/17 09:28 105 117/83 10/06/17 09:28 117/83 10/06/17 08:20 Room Air 10/06/17 08:00 98.7 105 18 117/83 (94) 99 98.7 10/06/17 07:55 105 10/06/17 06:02 103/72 10/06/17 04:00 100 10/06/17 04:00 96.3 94 17 103/72 (82) 98 96.3 10/06/17 00:00 97.3 99 20 108/62 (77) 95 97.3 10/06/17 00:00 92 10/05/17 21:28 112 101/72 10/05/17 21:28 101/72 10/05/17 21:00 Room Air 10/05/17 20:00 112 10/05/17 20:00 97.9 107 19 101/72 (82) 99 97.9 Intake and Output 10/05/17 10/06/17 19:00 07:00 Intake Total 355 ml Balance 355 ml Intake Oral 245 ml IV Total 110 ml # Voids 1 3 General Appearance: WD/WN Respiratory/Chest: lungs clear Cardiovascular: normal rate, regular rhythm Abdomen: soft, non tender, no organomegaly Skin: no lesions, no ulcers Neurologic/Psychiatric: abnormal gait, alert, oriented x 3 Laboratory Tests 10/06/17 06:45: Prothrombin Time 11.4, Prothromb Time International Ratio 1.1 Current Medications Medications (Trade) Dose Ordered Sig/Sonam Route PRN Reason Start Time Stop Time Status Last Admin Dose Admin Acetaminophen (Tylenol) 650 mg Q6HR PRN ORAL Mild Pain (Pain Scale 1-3) 09/29/17 03:30 10/29/17 03:29 09/29/17 12:23 Alprazolam (Xanax) 0.25 mg Q6H PRN ORAL For Anxiety 10/03/17 14:30 10/10/17 14:29 Azithromycin (Zithromax) 250 mg Q24H ORAL 10/03/17 15:00 10/10/17 14:59 10/06/17 15:08 Carvedilol (Coreg) 6.25 mg EVERY 12 HOURS ORAL 10/04/17 21:00 11/03/17 20:59 10/06/17 09:28 Ceftriaxone Sodium 1 gm/ Dextrose 55 ml @ 110 mls/hr Q24H IVPB 09/29/17 15:30 10/08/17 15:29 10/06/17 15:10 Dextrose (Dextrose 50%) 25 ml STAT PRN IV Hypoglycemia 09/29/17 03:30 10/29/17 03:29 Dextrose (Dextrose 50%) 50 ml STAT PRN IV Hypoglycemia 09/29/17 03:30 10/29/17 03:29 Docusate Sodium (Colace) 100 mg TWICE A DAY ORAL 10/01/17 18:00 10/31/17 17:59 10/06/17 09:28 Duloxetine HCl (Cymbalta) 30 mg DAILY ORAL 10/02/17 09:00 11/01/17 08:59 10/06/17 09:27 Enoxaparin Sodium (Lovenox) 90 mg EVERY 12 HOURS SUBQ 10/03/17 21:00 11/02/17 20:59 10/06/17 09:31 Folic Acid (Folate) 2 mg DAILY ORAL 10/03/17 09:00 11/02/17 08:59 10/06/17 09:29 Hydralazine HCl (Apresoline) 10 mg Q6HR PRN ORAL For High Blood Pressure 09/29/17 03:30 10/29/17 03:29 Hydralazine HCl (Apresoline) 25 mg Q8HR ORAL 10/04/17 14:00 11/01/17 17:59 10/06/17 06:02 Insulin Aspart (NovoLOG) BEFORE MEALS AND HS SUBQ 09/29/17 06:30 10/29/17 06:29 10/06/17 16:34 Isosorbide Mononitrate (Imdur) 30 mg DAILY ORAL 09/29/17 12:00 10/29/17 11:59 10/06/17 09:28 Lactobacillus Acidophilus (Culturelle) 1 tab TWICE A DAY ORAL 09/29/17 18:00 10/29/17 17:59 10/06/17 09:27 Metolazone (Zaroxolyn) 10 mg BID ORAL 10/04/17 18:00 11/01/17 08:59 10/06/17 17:27 Ondansetron HCl (Zofran) 4 mg Q4HR PRN IVP Nausea & Vomiting 09/29/17 03:30 10/29/17 03:29 Potassium Chloride (K-Dur) 40 meq QID ORAL 10/03/17 09:00 11/02/17 08:59 10/06/17 17:27 Quetiapine Fumarate (SEROquel) 25 mg BEDTIME ORAL 10/01/17 21:00 10/31/17 20:59 10/05/17 21:28 Spironolactone (Aldactone) 25 mg DAILY ORAL 10/05/17 09:00 11/04/17 08:59 10/06/17 09:28 Warfarin Sodium (Coumadin per pharmacy) 1 ea DAILY PRN MISC Per rx protocol 10/05/17 09:00 11/04/17 08:59 Aidee Bush DO Oct 06, 2017 18:24
--- NOTE | 2017-10-06 18:35 | Cardiology Progress Note ---
Assessment/Plan Assessment/Plan dilated cadriomyopathy low EF, still symptomatic with orthopnea cannot lie down flat, her LE edema is mild, we don't have accurate I&0 noted Dr harkins discontinue Bumex, will discuss, her BNP still high, but going down, needs fluid restriction, anticoagulation for possible LV thrombus, by pharmacy Subjective Subjective the patient reports that she still is short of breath she has bilateral leg pain, all the way from top to bottom Objective Last 24 Hour Vital Signs Date Time Temp Pulse Resp B/P (MAP) Pulse Ox O2 Delivery O2 Flow Rate FiO2 10/06/17 16:00 97.7 98 18 106/87 (93) 97 97.7 10/06/17 16:00 100 10/06/17 14:00 99/73 10/06/17 12:00 99 10/06/17 12:00 98.2 95 20 99/73 (82) 100 98.2 10/06/17 09:28 105 117/83 10/06/17 09:28 117/83 10/06/17 08:20 Room Air 10/06/17 08:00 98.7 105 18 117/83 (94) 99 98.7 10/06/17 07:55 105 10/06/17 06:02 103/72 10/06/17 04:00 100 10/06/17 04:00 96.3 94 17 103/72 (82) 98 96.3 10/06/17 00:00 97.3 99 20 108/62 (77) 95 97.3 10/06/17 00:00 92 10/05/17 21:28 112 101/72 10/05/17 21:28 101/72 10/05/17 21:00 Room Air 10/05/17 20:00 112 10/05/17 20:00 97.9 107 19 101/72 (82) 99 97.9 General Appearance: no apparent distress EENT: PERRL/EOMI Neck: JVD - 10 cm Rhythm: NSR Cardiovascular: tachycardia Respiratory/Chest: crackles/rales - at bases Abdomen: hypoactive bowel sounds 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
--- NOTE | 2017-10-06 21:27 | General Progress Note ---
Assessment/Plan Assessment/Plan #CHF exacerbation, acute on chronic systolic heart failure, EF < 30 % - due to med non compliance #increased apical signal on echo possible lv thrombus #KEELY - suspect superimposed on CKD #Pleural effusion - on TTE, due to CHF #Possible RLL PNA - on CXR, ? effusion vs infiltrate #Possible UTI - dirty catch #DM2 #HTN #Hypokalemia - cardiology consulted, appreciate recs - heparin gtt refused by patient- started enoxaprin - bridge to warfarin - Tn elevated, stable - TTE w/ reduced ef - diuresis per renal: d/c IV bumex and increase metolazone- switched to PO in anticipation of discharge - asa - dilt, imdur - pulm consult, appreciate recs - CAP coverage w/ ceftriaxone and azithro - UTI coverage w/ ceftriaxone - resp & urine cx - supplemental o2 prn - KEELY- renal recs appreciated -f/u labs - insulin sliding scale achs - dm/cardiac diet - dvt ppx: hep gtt - full code - replete electrolyes prn anticipate pt will require in pt mgt x 1-2 days, DC to SNF once stable SNF- [facility] has accepted patient I spent 45 min on this case and 25 min on counseling and or are coordination time of note may not reflect time of clinical encounter Subjective Date patient seen: Oct 06, 2017 Time patient seen: 17:00 Constitutional: Reports: malaise, weakness HEENT: Reports: no symptoms Cardiovascular: Reports: no symptoms Respiratory: Reports: SOB with excertion Gastrointestinal/Abdominal: Reports: no symptoms Genitourinary: Reports: no symptoms Endocrine: Reports: no symptoms Hematologic/Lymphatic: Reports: no symptoms Allergies: Coded Allergies: No Known Allergies (Unverified , 09/28/17) Subjective No acute events overnight Chart reviewed Patient resting in bed Denies chest pain Stable dyspnea on exertion Objective Last 24 Hour Vital Signs Date Time Temp Pulse Resp B/P (MAP) Pulse Ox O2 Delivery O2 Flow Rate FiO2 10/06/17 16:00 97.7 98 18 106/87 (93) 97 97.7 10/06/17 16:00 100 10/06/17 14:00 99/73 10/06/17 12:00 99 10/06/17 12:00 98.2 95 20 99/73 (82) 100 98.2 10/06/17 09:28 105 117/83 10/06/17 09:28 117/83 10/06/17 08:20 Room Air 10/06/17 08:00 98.7 105 18 117/83 (94) 99 98.7 10/06/17 07:55 105 10/06/17 06:02 103/72 10/06/17 04:00 100 10/06/17 04:00 96.3 94 17 103/72 (82) 98 96.3 10/06/17 00:00 97.3 99 20 108/62 (77) 95 97.3 10/06/17 00:00 92 10/05/17 21:28 112 101/72 10/05/17 21:28 101/72 Intake and Output 10/05/17 10/06/17 19:00 07:00 Intake Total 355 ml Balance 355 ml Intake Oral 245 ml IV Total 110 ml # Voids 1 3 Laboratory Tests 10/06/17 06:45: Prothrombin Time 11.4, Prothromb Time International Ratio 1.1 Height (Feet): 5 Height (Inches): 7.00 Weight (Pounds): 185 General Appearance: no apparent distress, thin EENT: PERRL/EOMI, TMs normal, pharynx normal, pale conjunctivae Neck: supple Cardiovascular: normal peripheral pulses, normal rate, regular rhythm Respiratory/Chest: chest wall non-tender, decreased breath sounds Abdomen: normal bowel sounds, soft Pelvis: normal external exam Edema: no edema noted Arm (L), no edema noted Arm (R) 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 Oct 06, 2017 21:27
[2017-10-07] VITALS: BP_SYST 121; BP_SYST 124; BP_DIAS 69; BP_DIAS 74
[2017-10-07 04:00] VITALS: BP 134/101
[2017-10-07] MEDS: HydrALAZINE 25mg tab ORAL SCH ×3 (05:58→21:10)
[2017-10-07] MEDS: NovoLOG Insulin Flexpen SUBQ SCH ×4 (06:02→21:00)
[2017-10-07 07:58] LABS: INR 1.1 (0.9-1.1)
[2017-10-07 08:00] VITALS: BP 130/85
[2017-10-07] MEDS: Docusate 100mg cap ORAL SCH ×3 (09:00→17:26)
[2017-10-07] MEDS: Imdur 30mg tab ORAL SCH (09:09)
[2017-10-07] MEDS: DULoxetine 30mg cap ORAL SCH (09:09)
[2017-10-07] MEDS: Carvedilol 6.25mg Tab ORAL SCH ×2 (09:09→21:09)
[2017-10-07] MEDS: Spironolactone 25mg tab ORAL SCH (09:10)
[2017-10-07] MEDS: Lactobacillus-GG tablet ORAL SCH ×2 (09:10→17:25)
[2017-10-07] MEDS: Enoxaparin 100mg Inj SUBQ SCH ×2 (09:22→21:12)
[2017-10-07 12:00] VITALS: BP 103/75
--- NOTE | 2017-10-07 14:07 | Nephrology Progress Note ---
Assessment/Plan Problem List: (1) CKD (chronic kidney disease) (2) Acute exacerbation of CHF (congestive heart failure) (3) Cardiomyopathy (4) Proteinuria (5) Hypertension Assessment - stable from renal stand - KEELY - suspect superimposed on CKD CKD likely due to DM & or HTN Patient has 3+ Proteinuria - Refuses meds and uncoaporative at times - CHF exacerbation, acute on chronic systolic heart failure, EF < 30 % - due to med non compliance - increased apical echo possible lv thrombus - Pleural effusion - on TTE, due to CHF - Possible RLL PNA - on CXR, ? effusion vs infiltrate - Possible UTI - dirty catch - DM2 - HTN Systemic & Pulmonary - Non compliance with Meds - TR and MR Plan no labs today K supplement- as needed mag IV given Adjust doses of Coreg and Hydralazine DC IV Bumex increase PO Zaroxolyn Optimize cardiac status Avoid Nephrotoxics Monitor renal parameters Keep BP and BS in check Per orders Subjective ROS Limited/Unobtainable: No Constitutional: Reports: malaise Objective Objective Last 24 Hour Vital Signs Date Time Temp Pulse Resp B/P (MAP) Pulse Ox O2 Delivery O2 Flow Rate FiO2 10/07/17 12:00 97.9 93 18 103/75 (84) 100 97.9 10/07/17 09:09 108 130/85 10/07/17 09:09 130/85 10/07/17 09:00 Room Air 10/07/17 08:00 102 10/07/17 08:00 97.2 108 18 130/85 (100) 96 97.2 10/07/17 05:58 134/101 10/07/17 04:00 96 10/07/17 04:00 98.5 105 21 134/101 (112) 97 98.5 10/07/17 00:00 102 10/07/17 00:00 98.5 104 24 124/69 (87) 100 98.5 10/07/17 00:00 98.2 102 20 121/74 (90) 95 98.2 10/06/17 21:30 106/87 10/06/17 21:00 Room Air 10/06/17 21:00 100 106/87 10/06/17 20:00 94 10/06/17 16:00 97.7 98 18 106/87 (93) 97 97.7 10/06/17 16:00 100 Intake and Output 10/06/17 10/07/17 19:00 07:00 Intake Total 290 ml Balance 290 ml Intake Oral 290 ml # Voids 2 3 Laboratory Tests 10/07/17 06:25: Prothrombin Time 11.3, Prothromb Time International Ratio 1.1 Height (Feet): 5 Height (Inches): 7.00 Weight (Pounds): 191 General Appearance: no apparent distress Objective no other changes Kelton Byrne MD Oct 07, 2017 14:07
[2017-10-07] MEDS: Azithromycin 250mg tab ORAL SCH (14:11)
--- NOTE | 2017-10-07 15:29 | General Progress Note ---
Assessment/Plan Status: progressing Assessment/Plan #CHF exacerbation, acute on chronic systolic heart failure, EF < 30 % - due to med non compliance #increased apical signal on echo possible LV thrombus #KEELY - suspect superimposed on CKD #Pleural effusion - on TTE, due to CHF #Possible RLL PNA - on CXR, ? effusion vs infiltrate #Possible UTI - dirty catch #DM2 #HTN #Hypokalemia - cardiology consulted, appreciate recs - heparin gtt refused by patient- started enoxaprin - bridge to warfarin; pharmacy dosing- INR still subtherapeutic - Tn elevated, stable - TTE w/ reduced ef - diuresis per renal: d/c IV bumex and increase metolazone- switched to PO in anticipation of discharge - asa - dilt, imdur - pulm consult, appreciate recs - CAP coverage w/ ceftriaxone and azithro day 11/05 - UTI coverage w/ ceftriaxone - resp & urine cx - supplemental o2 prn - KEELY- renal recs appreciated -f/u labs - insulin sliding scale achs - dm/cardiac diet - replete electrolyes prn DVT Prophylaxis: scd's, enoxaparin Code status: full Hospital Classification declaration: Based on this initial evaluation, and depending on the patient's clinical course, I anticipate that this patient will require hospitalization for 2-3 days. Disposition: Once the patient is stable to leave the hospital, I anticipate the patient will likely be discharged to the following environment:D/C to SNF once INR therapeutic SNF- [facility] has accepted patient I spent 45 minutes on this patient's case, and 25minutes was dedicated to counseling and/or care coordination. Time of note may not reflect time of encounter. Subjective Date patient seen: Oct 07, 2017 Time patient seen: 13:33 ROS Limited/Unobtainable: No Constitutional: Reports: malaise, weakness HEENT: Reports: no symptoms Cardiovascular: Reports: lightheadedness Gastrointestinal/Abdominal: Reports: no symptoms Genitourinary: Reports: no symptoms Neurologic/Psychiatric: Reports: no symptoms Endocrine: Reports: no symptoms, increased thirst Hematologic/Lymphatic: Reports: no symptoms Allergies: Coded Allergies: No Known Allergies (Unverified , 09/28/17) All Systems: reviewed and negative except above Subjective No acute events overnight Chart reviewed Patient resting in bed Denies chest pain Stable dyspnea on exertion Objective Last 24 Hour Vital Signs Date Time Temp Pulse Resp B/P (MAP) Pulse Ox O2 Delivery O2 Flow Rate FiO2 10/07/17 12:00 88 10/07/17 12:00 97.9 93 18 103/75 (84) 100 97.9 10/07/17 09:09 108 130/85 10/07/17 09:09 130/85 10/07/17 09:00 Room Air 10/07/17 08:00 102 10/07/17 08:00 97.2 108 18 130/85 (100) 96 97.2 10/07/17 05:58 134/101 10/07/17 04:00 96 10/07/17 04:00 98.5 105 21 134/101 (112) 97 98.5 10/07/17 00:00 102 10/07/17 00:00 98.5 104 24 124/69 (87) 100 98.5 10/07/17 00:00 98.2 102 20 121/74 (90) 95 98.2 10/06/17 21:30 106/87 10/06/17 21:00 Room Air 10/06/17 21:00 100 106/87 10/06/17 20:00 94 10/06/17 16:00 97.7 98 18 106/87 (93) 97 97.7 10/06/17 16:00 100 Intake and Output 10/06/17 10/07/17 19:00 07:00 Intake Total 290 ml Balance 290 ml Intake Oral 290 ml # Voids 2 3 Laboratory Tests 10/07/17 06:25: Prothrombin Time 11.3, Prothromb Time International Ratio 1.1 Height (Feet): 5 Height (Inches): 7.00 Weight (Pounds): 191 General Appearance: no apparent distress, thin EENT: PERRL/EOMI, normal ENT inspection Neck: non-tender, supple Cardiovascular: normal peripheral pulses, normal rate, regular rhythm Respiratory/Chest: decreased breath sounds Abdomen: normal bowel sounds, non tender, soft Pelvis: normal external exam Genitourinary/Rectal: normal genital exam Edema: mild edema 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 Oct 07, 2017 15:29
[2017-10-07 16:00] VITALS: BP 104/73
[2017-10-07] MEDS: cefTRIAXone 1 GM in D5W 55 ML IVPB SCH (16:16)
[2017-10-07] MEDS ORDERED: Warfarin Sodium 7.5mg ORAL SCH (17:00)
--- NOTE | 2017-10-07 17:16 | Pulmonology Progress Note ---
Assessment/Plan Assessment/Plan ASSESSMENT: * RLL opacity * CHF with ADHF * Possible LV thrombus * Faint b GG nodular opacities * KEELY on CKD * DM * HTN PLAN: * Optimize pulmonary hygiene/mobilize as tolerated * cx rin am * Titrate down FiO2 to keep SaO2 > 90% * CTx/Azithro * Monitor volumes and renal function, diuresis as tolerated * Repeat CT chest in 3 months to evaluate faint BiB GGO's * Monitor effusion * Continue A/C * F/U cards recs * Aspiration precautions Subjective Constitutional: Reports: no symptoms HEENT: Repors: no symptoms Respiratory: Reports: productive cough Cardiovascular: Reports: chest pain Gastrointestinal/Abdominal: Reports: no symptoms Allergies: Coded Allergies: No Known Allergies (Unverified , 09/28/17) Subjective awake complains of leg pain and can't ambulate and not better today dizzines as well noted by patient no cp nv or bleedingh toelriang po on RA Objective Last 24 Hour Vital Signs Date Time Temp Pulse Resp B/P (MAP) Pulse Ox O2 Delivery O2 Flow Rate FiO2 10/07/17 16:00 98.4 102 18 104/73 (83) 97 98.4 10/07/17 16:00 106 10/07/17 12:00 88 10/07/17 12:00 97.9 93 18 103/75 (84) 100 97.9 10/07/17 09:09 108 130/85 10/07/17 09:09 130/85 10/07/17 09:00 Room Air 10/07/17 08:00 102 10/07/17 08:00 97.2 108 18 130/85 (100) 96 97.2 10/07/17 05:58 134/101 10/07/17 04:00 96 10/07/17 04:00 98.5 105 21 134/101 (112) 97 98.5 10/07/17 00:00 102 10/07/17 00:00 98.5 104 24 124/69 (87) 100 98.5 10/07/17 00:00 98.2 102 20 121/74 (90) 95 98.2 10/06/17 21:30 106/87 10/06/17 21:00 Room Air 10/06/17 21:00 100 106/87 10/06/17 20:00 94 Intake and Output 10/06/17 10/07/17 19:00 07:00 Intake Total 290 ml Balance 290 ml Intake Oral 290 ml # Voids 2 3 General Appearance: WD/WN Respiratory/Chest: lungs clear Cardiovascular: normal peripheral pulses, regular rhythm Abdomen: no organomegaly, non distended Extremities: no clubbing Neurologic/Psychiatric: no motor/sensory deficits, abnormal gait, alert, oriented x 3 Lymphatic: no neck adenopathy Laboratory Tests 10/07/17 06:25: Prothrombin Time 11.3, Prothromb Time International Ratio 1.1 Current Medications Medications (Trade) Dose Ordered Sig/Sonam Route PRN Reason Start Time Stop Time Status Last Admin Dose Admin Acetaminophen (Tylenol) 650 mg Q6HR PRN ORAL Mild Pain (Pain Scale 1-3) 09/29/17 03:30 10/29/17 03:29 09/29/17 12:23 Alprazolam (Xanax) 0.25 mg Q6H PRN ORAL For Anxiety 10/03/17 14:30 10/10/17 14:29 Azithromycin (Zithromax) 250 mg Q24H ORAL 10/03/17 15:00 10/10/17 14:59 10/07/17 14:11 Carvedilol (Coreg) 6.25 mg EVERY 12 HOURS ORAL 10/04/17 21:00 11/03/17 20:59 10/07/17 09:09 Ceftriaxone Sodium 1 gm/ Dextrose 55 ml @ 110 mls/hr Q24H IVPB 09/29/17 15:30 10/08/17 15:29 10/07/17 16:16 Dextrose (Dextrose 50%) 25 ml STAT PRN IV Hypoglycemia 09/29/17 03:30 10/29/17 03:29 Dextrose (Dextrose 50%) 50 ml STAT PRN IV Hypoglycemia 09/29/17 03:30 10/29/17 03:29 Docusate Sodium (Colace) 100 mg TWICE A DAY ORAL 10/01/17 18:00 10/31/17 17:59 10/06/17 09:28 Duloxetine HCl (Cymbalta) 30 mg DAILY ORAL 10/02/17 09:00 11/01/17 08:59 10/07/17 09:09 Enoxaparin Sodium (Lovenox) 90 mg EVERY 12 HOURS SUBQ 10/03/17 21:00 11/02/17 20:59 10/07/17 09:22 Folic Acid (Folate) 2 mg DAILY ORAL 10/03/17 09:00 11/02/17 08:59 10/07/17 09:10 Hydralazine HCl (Apresoline) 10 mg Q6HR PRN ORAL For High Blood Pressure 09/29/17 03:30 10/29/17 03:29 Hydralazine HCl (Apresoline) 25 mg Q8HR ORAL 10/04/17 14:00 11/01/17 17:59 10/06/17 21:30 Insulin Aspart (NovoLOG) BEFORE MEALS AND HS SUBQ 09/29/17 06:30 10/29/17 06:29 10/06/17 16:34 Isosorbide Mononitrate (Imdur) 30 mg DAILY ORAL 09/29/17 12:00 10/29/17 11:59 10/07/17 09:09 Lactobacillus Acidophilus (Culturelle) 1 tab TWICE A DAY ORAL 09/29/17 18:00 10/29/17 17:59 10/07/17 09:10 Metolazone (Zaroxolyn) 10 mg BID ORAL 10/04/17 18:00 11/01/17 08:59 10/07/17 09:10 Ondansetron HCl (Zofran) 4 mg Q4HR PRN IVP Nausea & Vomiting 09/29/17 03:30 10/29/17 03:29 Potassium Chloride (K-Dur) 40 meq TID ORAL 10/07/17 18:00 11/02/17 08:59 Quetiapine Fumarate (SEROquel) 25 mg BEDTIME ORAL 10/01/17 21:00 10/31/17 20:59 10/05/17 21:28 Spironolactone (Aldactone) 25 mg DAILY ORAL 10/05/17 09:00 11/04/17 08:59 10/07/17 09:10 Warfarin Sodium (Coumadin per pharmacy) 1 ea DAILY PRN MISC Per rx protocol 10/05/17 09:00 11/04/17 08:59 Warfarin Sodium (Coumadin) 7.5 mg ONCE ORAL 10/07/17 17:00 10/07/17 18:00 Aidee Bush DO Oct 07, 2017 17:16
--- NOTE | 2017-10-07 17:46 | Cardiology Progress Note ---
Assessment/Plan Assessment/Plan no new events continue medications, anticoagulation by pharmacy Subjective Subjective the patient reports feeling better, her leg pain is better, swelling subsided Objective Last 24 Hour Vital Signs Date Time Temp Pulse Resp B/P (MAP) Pulse Ox O2 Delivery O2 Flow Rate FiO2 10/07/17 16:00 98.4 102 18 104/73 (83) 97 98.4 10/07/17 16:00 106 10/07/17 12:00 88 10/07/17 12:00 97.9 93 18 103/75 (84) 100 97.9 10/07/17 09:09 108 130/85 10/07/17 09:09 130/85 10/07/17 09:00 Room Air 10/07/17 08:00 102 10/07/17 08:00 97.2 108 18 130/85 (100) 96 97.2 10/07/17 05:58 134/101 10/07/17 04:00 96 10/07/17 04:00 98.5 105 21 134/101 (112) 97 98.5 10/07/17 00:00 102 10/07/17 00:00 98.5 104 24 124/69 (87) 100 98.5 10/07/17 00:00 98.2 102 20 121/74 (90) 95 98.2 10/06/17 21:30 106/87 10/06/17 21:00 Room Air 10/06/17 21:00 100 106/87 10/06/17 20:00 94 General Appearance: WD/WN, no apparent distress EENT: PERRL/EOMI Neck: JVD Rhythm: ST Cardiovascular: tachycardia, systolic murmur Respiratory/Chest: crackles/rales - few Abdomen: non tender Extremities: trace edema Intake and Output 10/06/17 10/07/17 19:00 07:00 Intake Total 290 ml Balance 290 ml Intake Oral 290 ml # Voids 2 3 Laboratory Tests Test 10/07/17 06:25 Prothrombin Time 11.3 SEC (9.30-11.50) Prothromb Time International Ratio 1.1 (0.9-1.1) Malaika Romero MD Oct 07, 2017 17:46
[2017-10-07 20:00] VITALS: BP 127/76
[2017-10-08] VITALS: BP 113/81
[2017-10-08 04:00] VITALS: BP 125/66
[2017-10-08] MEDS: HydrALAZINE 25mg tab ORAL SCH ×3 (05:49→21:06)
[2017-10-08 06:03] LABS: BASOPHILS % (AUTO) 1.5 % (0.0-2.0); EOSINOPHILS % (AUTO) 4.8 % (0.0-3.0); HEMATOCRIT 37.4 % (37.0-47.0); HEMOGLOBIN 11.9 G/DL (12.0-16.0); LYMPHOCYTES % (AUTO) 23.3 % (20.0-45.0); MEAN CORPUSCULAR VOLUME 93 FL (80-99); MONOCYTES % (AUTO) 13.1 % (1.0-10.0); NEUTROPHILS % (AUTO) 57.3 % (45.0-75.0); PLATELET COUNT 248 K/UL (150-450); RED BLOOD COUNT 4.04 M/UL (4.20-5.40); WHITE BLOOD COUNT 3.8 K/UL (4.8-10.8)
[2017-10-08] MEDS: NovoLOG Insulin Flexpen SUBQ SCH ×4 (06:28→21:03)
[2017-10-08 06:31] LABS: INR 1.1 (0.9-1.1)
[2017-10-08 06:32] LABS: ALANINE AMINOTRANSFERASE 45 U/L (12-78); ALBUMIN 2.7 G/DL (3.4-5.0); ALBUMIN/GLOBULIN RATIO 0.8 (1.0-2.7); ALKALINE PHOSPHATASE 76 U/L (46-116); ANION GAP 10 mmol/L (5-15); ASPARTATE AMINO TRANSFERASE 27 U/L (15-37); BILIRUBIN,TOTAL 0.6 MG/DL (0.2-1.0); BLOOD UREA NITROGEN 10 mg/dL (7-18); CALCIUM 9.3 MG/DL (8.5-10.1); CARBON DIOXIDE 27 MMOL/L (21-32); CHLORIDE 104 MMOL/L (98-107); CREATININE 1.9 MG/DL (0.55-1.30); PHOSPHORUS 4.5 MG/DL (2.5-4.9); SODIUM 141 MMOL/L (136-145)
[2017-10-08 08:00] VITALS: BP 97/67
[2017-10-08] MEDS: Lactobacillus-GG tablet ORAL SCH ×2 (09:00→17:14)
[2017-10-08] MEDS: Imdur 30mg tab ORAL SCH ×2 (09:00→09:09)
[2017-10-08] MEDS: Carvedilol 6.25mg Tab ORAL SCH ×3 (09:00→21:07)
[2017-10-08] MEDS: Docusate 100mg cap ORAL SCH ×2 (09:00→17:14)
[2017-10-08] MEDS: DULoxetine 30mg cap ORAL SCH (09:09)
[2017-10-08] MEDS: Spironolactone 25mg tab ORAL SCH (09:10)
[2017-10-08] MEDS: Enoxaparin 100mg Inj SUBQ SCH ×2 (09:18→21:04)
--- NOTE | 2017-10-08 10:17 | Diagnostic Imaging Report ---
Indication: Shortness of breath Technique: One view of the chest Comparison: 10/01/2017 Findings: Better inspiration currently. Lungs and pleural spaces are clear. Previously demonstrated congestive changes have resolved. The heart size is upper limits of normal Impression: No acute process
[2017-10-08 12:00] VITALS: BP 115/82
--- NOTE | 2017-10-08 13:12 | Nephrology Progress Note ---
Assessment/Plan Problem List: (1) CKD (chronic kidney disease) (2) Acute exacerbation of CHF (congestive heart failure) (3) Cardiomyopathy (4) Proteinuria (5) Hypertension Assessment - stable from renal stand - KEELY - suspect superimposed on CKD CKD likely due to DM & or HTN Patient has 3+ Proteinuria - Refuses meds and uncoaporative at times - CHF exacerbation, acute on chronic systolic heart failure, EF < 30 % - due to med non compliance - increased apical echo possible lv thrombus - Pleural effusion - on TTE, due to CHF - Possible RLL PNA - on CXR, ? effusion vs infiltrate - Possible UTI - dirty catch - DM2 - HTN Systemic & Pulmonary - Non compliance with Meds - TR and MR Plan K supplement- as needed mag IV given Adjust doses of Coreg and Hydralazine PO Zaroxolyn Optimize cardiac status Avoid Nephrotoxics Monitor renal parameters Keep BP and BS in check DC planning? Per orders Subjective ROS Limited/Unobtainable: No Constitutional: Reports: malaise Objective Objective Last 24 Hour Vital Signs Date Time Temp Pulse Resp B/P (MAP) Pulse Ox O2 Delivery O2 Flow Rate FiO2 10/08/17 12:00 98.3 108 20 115/82 (93) 98 98.3 10/08/17 09:00 Room Air 10/08/17 08:00 98.2 102 18 97/67 (77) 97 98.2 10/08/17 08:00 103 10/08/17 05:49 125/66 10/08/17 04:00 98.0 70 21 125/66 (85) 95 98.0 10/08/17 04:00 97 10/08/17 00:00 98.2 97 20 113/81 (92) 98 98.2 10/08/17 00:00 97 10/07/17 21:10 127/76 10/07/17 21:09 102 127/76 10/07/17 21:00 Room Air 10/07/17 20:00 98.5 102 20 127/76 (93) 97 98.5 10/07/17 20:00 103 10/07/17 16:00 98.4 102 18 104/73 (83) 97 98.4 10/07/17 16:00 106 Intake and Output 10/07/17 10/08/17 19:00 07:00 Intake Total 360 ml Balance 360 ml Intake Oral 360 ml # Voids 2 3 # Bowel Movements 1 Laboratory Tests 10/08/17 05:00: White Blood Count 3.8L, Red Blood Count 4.04L, Hemoglobin 11.9L, Hematocrit 37.4 , Mean Corpuscular Volume 93, Mean Corpuscular Hemoglobin 29.6, Mean Corpuscular Hemoglobin Concent 31.9L, Red Cell Distribution Width 16.0H, Platelet Count 248, Mean Platelet Volume 7.4, Neutrophils (%) (Auto) 57.3, Lymphocytes (%) (Auto) 23.3, Monocytes (%) (Auto) 13.1H, Eosinophils (%) (Auto) 4.8H, Basophils (%) (Auto) 1.5 10/08/17 05:25: Prothrombin Time 11.4, Prothromb Time International Ratio 1.1, Sodium Level 141 , Potassium Level 4.0, Chloride Level 104, Carbon Dioxide Level 27, Anion Gap 10 , Blood Urea Nitrogen 10, Creatinine 1.9H, Estimat Glomerular Filtration Rate 33.7, Glucose Level 91, Calcium Level 9.3, Phosphorus Level 4.5, Magnesium Level 1.6L, Total Bilirubin 0.6, Aspartate Amino Transf (AST/SGOT) 27, Alanine Aminotransferase (ALT/SGPT) 45, Alkaline Phosphatase 76, C-Reactive Protein, Quantitative < 0.4, Pro-B-Type Natriuretic Peptide 850H, Total Protein 6.1L, Albumin 2.7L, Globulin 3.4, Albumin/Globulin Ratio 0.8L Height (Feet): 5 Height (Inches): 7.00 Weight (Pounds): 187 General Appearance: no apparent distress Cardiovascular: tachycardia Respiratory/Chest: decreased breath sounds Abdomen: distended Objective no other changes Kelton Byrne MD Oct 08, 2017 13:12
--- NOTE | 2017-10-08 13:22 | Pulmonology Progress Note ---
Assessment/Plan Assessment/Plan ASSESSMENT: * RLL opacity - IMPROVED * CHF with ADHF * Possible LV thrombus * Faint b GG nodular opacities * KEELY on CKD * DM * HTN PLAN: * Optimize pulmonary hygiene/mobilize as tolerated * Titrate down FiO2 to keep SaO2 > 90% * Observe off Abx * Monitor volumes and renal function, diuresis as tolerated * Repeat CT chest in 3 months to evaluate faint BiB GGO's * Monitor effusion * Continue A/C * F/U cards recs * Aspiration precautions * Stable form a pulmonary standpoint for D/C home Terence Donato MD Subjective Allergies: Coded Allergies: No Known Allergies (Unverified , 09/28/17) Subjective KASSIDY, AFVSS, stable on RA No SOB, no cough, no wheezing, no CP, no F/C Objective Last 24 Hour Vital Signs Date Time Temp Pulse Resp B/P (MAP) Pulse Ox O2 Delivery O2 Flow Rate FiO2 10/08/17 12:00 98.3 108 20 115/82 (93) 98 98.3 10/08/17 09:00 Room Air 10/08/17 08:00 98.2 102 18 97/67 (77) 97 98.2 10/08/17 08:00 103 10/08/17 05:49 125/66 10/08/17 04:00 98.0 70 21 125/66 (85) 95 98.0 10/08/17 04:00 97 10/08/17 00:00 98.2 97 20 113/81 (92) 98 98.2 10/08/17 00:00 97 10/07/17 21:10 127/76 10/07/17 21:09 102 127/76 10/07/17 21:00 Room Air 10/07/17 20:00 98.5 102 20 127/76 (93) 97 98.5 10/07/17 20:00 103 10/07/17 16:00 98.4 102 18 104/73 (83) 97 98.4 10/07/17 16:00 106 Intake and Output 10/07/17 10/08/17 19:00 07:00 Intake Total 360 ml Balance 360 ml Intake Oral 360 ml # Voids 2 3 # Bowel Movements 1 General Appearance: WD/WN, no acute distress HEENT: normocephalic, atraumatic, anicteric, mucous membranes moist Respiratory/Chest: chest wall non-tender, lungs clear, normal breath sounds, no respiratory distress, no accessory muscle use Cardiovascular: normal peripheral pulses, normal rate, regular rhythm Abdomen: normal bowel sounds, soft, non tender, no organomegaly, non distended , no mass Extremities: no cyanosis, no clubbing, no edema Laboratory Tests 10/08/17 05:00: White Blood Count 3.8L, Red Blood Count 4.04L, Hemoglobin 11.9L, Hematocrit 37.4 , Mean Corpuscular Volume 93, Mean Corpuscular Hemoglobin 29.6, Mean Corpuscular Hemoglobin Concent 31.9L, Red Cell Distribution Width 16.0H, Platelet Count 248, Mean Platelet Volume 7.4, Neutrophils (%) (Auto) 57.3, Lymphocytes (%) (Auto) 23.3, Monocytes (%) (Auto) 13.1H, Eosinophils (%) (Auto) 4.8H, Basophils (%) (Auto) 1.5 10/08/17 05:25: Prothrombin Time 11.4, Prothromb Time International Ratio 1.1, Sodium Level 141 , Potassium Level 4.0, Chloride Level 104, Carbon Dioxide Level 27, Anion Gap 10 , Blood Urea Nitrogen 10, Creatinine 1.9H, Estimat Glomerular Filtration Rate 33.7, Glucose Level 91, Calcium Level 9.3, Phosphorus Level 4.5, Magnesium Level 1.6L, Total Bilirubin 0.6, Aspartate Amino Transf (AST/SGOT) 27, Alanine Aminotransferase (ALT/SGPT) 45, Alkaline Phosphatase 76, C-Reactive Protein, Quantitative < 0.4, Pro-B-Type Natriuretic Peptide 850H, Total Protein 6.1L, Albumin 2.7L, Globulin 3.4, Albumin/Globulin Ratio 0.8L Current Medications Medications (Trade) Dose Ordered Sig/Sonam Route PRN Reason Start Time Stop Time Status Last Admin Dose Admin Acetaminophen (Tylenol) 650 mg Q6HR PRN ORAL Mild Pain (Pain Scale 1-3) 09/29/17 03:30 10/29/17 03:29 09/29/17 12:23 Alprazolam (Xanax) 0.25 mg Q6H PRN ORAL For Anxiety 10/03/17 14:30 10/10/17 14:29 Azithromycin (Zithromax) 250 mg Q24H ORAL 10/03/17 15:00 10/10/17 14:59 10/07/17 14:11 Carvedilol (Coreg) 6.25 mg EVERY 12 HOURS ORAL 10/04/17 21:00 11/03/17 20:59 10/07/17 21:09 Ceftriaxone Sodium 1 gm/ Dextrose 55 ml @ 110 mls/hr Q24H IVPB 09/29/17 15:30 10/09/17 23:59 10/07/17 16:16 Dextrose (Dextrose 50%) 25 ml STAT PRN IV Hypoglycemia 09/29/17 03:30 10/29/17 03:29 Dextrose (Dextrose 50%) 50 ml STAT PRN IV Hypoglycemia 09/29/17 03:30 10/29/17 03:29 Docusate Sodium (Colace) 100 mg TWICE A DAY ORAL 10/01/17 18:00 10/31/17 17:59 10/06/17 09:28 Duloxetine HCl (Cymbalta) 30 mg DAILY ORAL 10/02/17 09:00 11/01/17 08:59 10/08/17 09:09 Enoxaparin Sodium (Lovenox) 90 mg EVERY 12 HOURS SUBQ 10/03/17 21:00 11/02/17 20:59 10/08/17 09:18 Folic Acid (Folate) 2 mg DAILY ORAL 10/03/17 09:00 11/02/17 08:59 10/08/17 09:10 Hydralazine HCl (Apresoline) 10 mg Q6HR PRN ORAL For High Blood Pressure 09/29/17 03:30 10/29/17 03:29 Hydralazine HCl (Apresoline) 25 mg Q8HR ORAL 10/04/17 14:00 11/01/17 17:59 10/08/17 05:49 Insulin Aspart (NovoLOG) BEFORE MEALS AND HS SUBQ 09/29/17 06:30 10/29/17 06:29 10/06/17 16:34 Isosorbide Mononitrate (Imdur) 30 mg DAILY ORAL 09/29/17 12:00 10/29/17 11:59 10/07/17 09:09 Lactobacillus Acidophilus (Culturelle) 1 tab TWICE A DAY ORAL 09/29/17 18:00 10/29/17 17:59 10/07/17 17:25 Magnesium Sulfate 100 ml @ 100 mls/hr Q1H IVPB 10/08/17 13:00 10/08/17 14:59 Metolazone (Zaroxolyn) 10 mg BID ORAL 10/04/17 18:00 11/01/17 08:59 10/08/17 09:09 Ondansetron HCl (Zofran) 4 mg Q4HR PRN IVP Nausea & Vomiting 09/29/17 03:30 10/29/17 03:29 Potassium Chloride (K-Dur) 40 meq TID ORAL 10/07/17 18:00 11/02/17 08:59 10/08/17 09:10 Quetiapine Fumarate (SEROquel) 25 mg BEDTIME ORAL 10/01/17 21:00 10/31/17 20:59 10/07/17 21:09 Spironolactone (Aldactone) 25 mg DAILY ORAL 10/05/17 09:00 11/04/17 08:59 10/08/17 09:10 Warfarin Sodium (Coumadin per pharmacy) 1 ea DAILY PRN MISC Per rx protocol 10/05/17 09:00 11/04/17 08:59 Warfarin Sodium (Coumadin) 10 mg COUMADIN ONCE ORAL 10/08/17 17:00 10/08/17 17:01 Terence Donato MD Oct 08, 2017 13:21
--- NOTE | 2017-10-08 14:23 | General Progress Note ---
Assessment/Plan Status: stable Assessment/Plan #CHF exacerbation, acute on chronic systolic heart failure, EF < 30 % - due to med non compliance #increased apical signal on echo possible LV thrombus #KEELY - suspect superimposed on CKD #Pleural effusion - on TTE, due to CHF #Possible RLL PNA - on CXR, ? effusion vs infiltrate #Possible UTI - dirty catch #DM2 #HTN #Hypokalemia - cardiology consulted, appreciate recs - heparin gtt refused by patient- started enoxaprin - bridge to warfarin; pharmacy dosing- INR still subtherapeutic - Tn elevated, stable - TTE w/ reduced ef - diuresis per renal: d/c IV bumex and increase metolazone- switched to PO in anticipation of discharge - asa - dilt, imdur - pulm consult, appreciate recs - CAP coverage w/ ceftriaxone and azithro day 12/05 - UTI coverage w/ ceftriaxone - resp & urine cx - supplemental o2 prn - KEELY- renal recs appreciated -f/u labs - insulin sliding scale achs - dm/cardiac diet - replete electrolyes prn DVT Prophylaxis: scd's, enoxaparin Code status: full Hospital Classification declaration: Based on this initial evaluation, and depending on the patient's clinical course, I anticipate that this patient will require hospitalization for 2-3 days. Disposition: Once the patient is stable to leave the hospital, I anticipate the patient will likely be discharged to the following environment:D/C to SNF once INR therapeutic SNF- [facility] has accepted patient. However, patient refused SNF. DC to home once INR is therapeutic, between 2-3. I spent 45 minutes on this patient's case, and 25minutes was dedicated to counseling and/or care coordination. Time of note may not reflect time of encounter. Subjective Date patient seen: Oct 08, 2017 Allergies: Coded Allergies: No Known Allergies (Unverified , 09/28/17) Subjective - AF, HDS - no acute events overnight - INR 1.1, still subtherapeutic - patient refusing to go to SNF, wants to go home - denies cp, sob Objective Last 24 Hour Vital Signs Date Time Temp Pulse Resp B/P (MAP) Pulse Ox O2 Delivery O2 Flow Rate FiO2 10/08/17 13:34 126/84 10/08/17 12:00 98.3 108 20 115/82 (93) 98 98.3 10/08/17 09:00 Room Air 10/08/17 08:00 98.2 102 18 97/67 (77) 97 98.2 10/08/17 08:00 103 10/08/17 05:49 125/66 10/08/17 04:00 98.0 70 21 125/66 (85) 95 98.0 10/08/17 04:00 97 10/08/17 00:00 98.2 97 20 113/81 (92) 98 98.2 10/08/17 00:00 97 10/07/17 21:10 127/76 10/07/17 21:09 102 127/76 10/07/17 21:00 Room Air 10/07/17 20:00 98.5 102 20 127/76 (93) 97 98.5 10/07/17 20:00 103 10/07/17 16:00 98.4 102 18 104/73 (83) 97 98.4 10/07/17 16:00 106 Intake and Output 10/07/17 10/08/17 19:00 07:00 Intake Total 360 ml Balance 360 ml Intake Oral 360 ml # Voids 2 3 # Bowel Movements 1 Laboratory Tests 10/08/17 05:00: White Blood Count 3.8L, Red Blood Count 4.04L, Hemoglobin 11.9L, Hematocrit 37.4 , Mean Corpuscular Volume 93, Mean Corpuscular Hemoglobin 29.6, Mean Corpuscular Hemoglobin Concent 31.9L, Red Cell Distribution Width 16.0H, Platelet Count 248, Mean Platelet Volume 7.4, Neutrophils (%) (Auto) 57.3, Lymphocytes (%) (Auto) 23.3, Monocytes (%) (Auto) 13.1H, Eosinophils (%) (Auto) 4.8H, Basophils (%) (Auto) 1.5 10/08/17 05:25: Prothrombin Time 11.4, Prothromb Time International Ratio 1.1, Sodium Level 141 , Potassium Level 4.0, Chloride Level 104, Carbon Dioxide Level 27, Anion Gap 10 , Blood Urea Nitrogen 10, Creatinine 1.9H, Estimat Glomerular Filtration Rate 33.7, Glucose Level 91, Calcium Level 9.3, Phosphorus Level 4.5, Magnesium Level 1.6L, Total Bilirubin 0.6, Aspartate Amino Transf (AST/SGOT) 27, Alanine Aminotransferase (ALT/SGPT) 45, Alkaline Phosphatase 76, C-Reactive Protein, Quantitative < 0.4, Pro-B-Type Natriuretic Peptide 850H, Total Protein 6.1L, Albumin 2.7L, Globulin 3.4, Albumin/Globulin Ratio 0.8L Height (Feet): 5 Height (Inches): 7.00 Weight (Pounds): 187 General Appearance: no apparent distress, alert EENT: PERRL/EOMI, normal ENT inspection Neck: non-tender, normal alignment, supple Cardiovascular: normal peripheral pulses, normal rate, regular rhythm Respiratory/Chest: chest wall non-tender, lungs clear, normal breath sounds Abdomen: normal bowel sounds, non tender, soft Extremities: normal range of motion, non-tender 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
[2017-10-08 16:00] VITALS: BP 118/85
[2017-10-08] MEDS ORDERED: Warfarin Sodium 10mg ORAL ONE (17:00)
--- NOTE | 2017-10-08 19:12 | General Progress Note ---
Assessment/Plan Status: stable, progressing Assessment/Plan MDD Encephalopathy -Cymbalta 30mg qam -Seroquel 50mg qhs -provided ro/st -Xanax prn Subjective Date patient seen: Oct 08, 2017 Neurologic/Psychiatric: Reports: anxiety, depressed, emotional problems Allergies: Coded Allergies: No Known Allergies (Unverified , 09/28/17) Subjective the pt is doing well Objective Last 24 Hour Vital Signs Date Time Temp Pulse Resp B/P (MAP) Pulse Ox O2 Delivery O2 Flow Rate FiO2 10/08/17 16:00 98.2 105 20 118/85 (96) 98 98.2 10/08/17 16:00 110 10/08/17 13:34 126/84 10/08/17 12:00 98.3 108 20 115/82 (93) 98 98.3 10/08/17 12:00 109 10/08/17 09:00 Room Air 10/08/17 08:00 98.2 102 18 97/67 (77) 97 98.2 10/08/17 08:00 103 10/08/17 05:49 125/66 10/08/17 04:00 98.0 70 21 125/66 (85) 95 98.0 10/08/17 04:00 97 10/08/17 00:00 98.2 97 20 113/81 (92) 98 98.2 10/08/17 00:00 97 10/07/17 21:10 127/76 10/07/17 21:09 102 127/76 10/07/17 21:00 Room Air 10/07/17 20:00 98.5 102 20 127/76 (93) 97 98.5 10/07/17 20:00 103 Intake and Output 10/07/17 10/08/17 19:00 07:00 Intake Total 360 ml Balance 360 ml Intake Oral 360 ml # Voids 2 3 # Bowel Movements 1 Laboratory Tests 10/08/17 05:00: White Blood Count 3.8L, Red Blood Count 4.04L, Hemoglobin 11.9L, Hematocrit 37.4 , Mean Corpuscular Volume 93, Mean Corpuscular Hemoglobin 29.6, Mean Corpuscular Hemoglobin Concent 31.9L, Red Cell Distribution Width 16.0H, Platelet Count 248, Mean Platelet Volume 7.4, Neutrophils (%) (Auto) 57.3, Lymphocytes (%) (Auto) 23.3, Monocytes (%) (Auto) 13.1H, Eosinophils (%) (Auto) 4.8H, Basophils (%) (Auto) 1.5 10/08/17 05:25: Prothrombin Time 11.4, Prothromb Time International Ratio 1.1, Sodium Level 141 , Potassium Level 4.0, Chloride Level 104, Carbon Dioxide Level 27, Anion Gap 10 , Blood Urea Nitrogen 10, Creatinine 1.9H, Estimat Glomerular Filtration Rate 33.7, Glucose Level 91, Calcium Level 9.3, Phosphorus Level 4.5, Magnesium Level 1.6L, Total Bilirubin 0.6, Aspartate Amino Transf (AST/SGOT) 27, Alanine Aminotransferase (ALT/SGPT) 45, Alkaline Phosphatase 76, C-Reactive Protein, Quantitative < 0.4, Pro-B-Type Natriuretic Peptide 850H, Total Protein 6.1L, Albumin 2.7L, Globulin 3.4, Albumin/Globulin Ratio 0.8L Height (Feet): 5 Height (Inches): 7.00 Weight (Pounds): 187 General Appearance: no apparent distress, alert Neurologic: oriented x 3, responsive, depressed affect Peggy Rodas MD Oct 08, 2017 19:11
[2017-10-08 19:38] VITALS: BP 121/85
--- NOTE | 2017-10-08 20:32 | Cardiology Progress Note ---
Assessment/Plan Assessment/Plan acute on chronic chf med non complaince increaed apical echo possible lv thrombus htn renal insuf pulm htn mr sig tr sig nsvt need na fluid restriction which i discussed with pt previoualy 1500 cc Isordil hydralazine combination repeat labs in am nwo on anticoagulation lwmh to coumadin reorderd electolyte repletion tele sinus nsvt short cr stable on low dose coreg not on acei / arb due ot renal insuf on po diurtic in anticipation of dc dr cotto ordered metolazone consider switch to demadex or bumex snf (she dislikes lasix) mag adn electolyrte repeltion will consider starting on entresto when available or if 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 as outpt importacn or fludi adn na restiction d/w pt Subjective Cardiovascular: Denies: chest pain, lightheadedness, palpitations Respiratory: Denies: shortness of breath Gastrointestinal/Abdominal: Denies: abdomen distended Genitourinary: Denies: burning Objective Last 24 Hour Vital Signs Date Time Temp Pulse Resp B/P (MAP) Pulse Ox O2 Delivery O2 Flow Rate FiO2 10/08/17 19:38 98.1 115 20 121/85 (97) 99 98.1 10/08/17 16:00 98.2 105 20 118/85 (96) 98 98.2 10/08/17 16:00 110 10/08/17 13:34 126/84 10/08/17 12:00 98.3 108 20 115/82 (93) 98 98.3 10/08/17 12:00 109 10/08/17 09:00 Room Air 10/08/17 08:00 98.2 102 18 97/67 (77) 97 98.2 10/08/17 08:00 103 10/08/17 05:49 125/66 10/08/17 04:00 98.0 70 21 125/66 (85) 95 98.0 10/08/17 04:00 97 10/08/17 00:00 98.2 97 20 113/81 (92) 98 98.2 10/08/17 00:00 97 10/07/17 21:10 127/76 10/07/17 21:09 102 127/76 10/07/17 21:00 Room Air General Appearance: alert Neck: supple Cardiovascular: normal rate, regular rhythm Respiratory/Chest: lungs clear Abdomen: normal bowel sounds, non tender, soft Extremities: trace edema Intake and Output 10/07/17 10/08/17 19:00 07:00 Intake Total 360 ml Balance 360 ml Intake Oral 360 ml # Voids 2 3 # Bowel Movements 1 Laboratory Tests Test 10/08/17 05:00 10/08/17 05:25 White Blood Count 3.8 K/UL (4.8-10.8) L Red Blood Count 4.04 M/UL (4.20-5.40) L Hemoglobin 11.9 G/DL (12.0-16.0) L Hematocrit 37.4 % (37.0-47.0) Mean Corpuscular Volume 93 FL (80-99) Mean Corpuscular Hemoglobin 29.6 PG (27.0-31.0) Mean Corpuscular Hemoglobin Concent 31.9 G/DL (32.0-36.0) L Red Cell Distribution Width 16.0 % (11.6-14.8) H Platelet Count 248 K/UL (150-450) Mean Platelet Volume 7.4 FL (6.5-10.1) Neutrophils (%) (Auto) 57.3 % (45.0-75.0) Lymphocytes (%) (Auto) 23.3 % (20.0-45.0) Monocytes (%) (Auto) 13.1 % (1.0-10.0) H Eosinophils (%) (Auto) 4.8 % (0.0-3.0) H Basophils (%) (Auto) 1.5 % (0.0-2.0) Prothrombin Time 11.4 SEC (9.30-11.50) Prothromb Time International Ratio 1.1 (0.9-1.1) Sodium Level 141 MMOL/L (136-145) Potassium Level 4.0 MMOL/L (3.5-5.1) Chloride Level 104 MMOL/L (98-107) Carbon Dioxide Level 27 MMOL/L (21-32) Anion Gap 10 mmol/L (5-15) Blood Urea Nitrogen 10 mg/dL (7-18) Creatinine 1.9 MG/DL (0.55-1.30) H Estimat Glomerular Filtration Rate 33.7 mL/min (>60) Glucose Level 91 MG/DL (74-106) Calcium Level 9.3 MG/DL (8.5-10.1) Phosphorus Level 4.5 MG/DL (2.5-4.9) Magnesium Level 1.6 MG/DL (1.8-2.4) L Total Bilirubin 0.6 MG/DL (0.2-1.0) Aspartate Amino Transf (AST/SGOT) 27 U/L (15-37) Alanine Aminotransferase (ALT/SGPT) 45 U/L (12-78) Alkaline Phosphatase 76 U/L (46-116) C-Reactive Protein, Quantitative < 0.4 mg/dL (0.00-0.90) Pro-B-Type Natriuretic Peptide 850 pg/mL (0-125) H Total Protein 6.1 G/DL (6.4-8.2) L Albumin 2.7 G/DL (3.4-5.0) L Globulin 3.4 g/dL Albumin/Globulin Ratio 0.8 (1.0-2.7) L Serafin Eagle MD Oct 08, 2017 20:32
[2017-10-09] VITALS: BP 98/69
[2017-10-09 04:00] VITALS: BP 112/78
[2017-10-09] MEDS: HydrALAZINE 25mg tab ORAL SCH ×2 (06:20→12:58)
[2017-10-09] MEDS: NovoLOG Insulin Flexpen SUBQ SCH ×2 (06:21→11:30)
[2017-10-09 07:34] LABS: BASOPHILS % (AUTO) 0.9 % (0.0-2.0); EOSINOPHILS % (AUTO) 5.4 % (0.0-3.0); HEMATOCRIT 41.2 % (37.0-47.0); HEMOGLOBIN 13.2 G/DL (12.0-16.0); LYMPHOCYTES % (AUTO) 33.1 % (20.0-45.0); MEAN CORPUSCULAR VOLUME 93 FL (80-99); MONOCYTES % (AUTO) 8.8 % (1.0-10.0); NEUTROPHILS % (AUTO) 51.8 % (45.0-75.0); PLATELET COUNT 278 K/UL (150-450); RED BLOOD COUNT 4.42 M/UL (4.20-5.40); RED CELL DISTRIBUTION WIDTH 15.8 % (11.6-14.8); WHITE BLOOD COUNT 3.5 K/UL (4.8-10.8)
[2017-10-09 07:49] LABS: ANION GAP 6 mmol/L (5-15); BLOOD UREA NITROGEN 8 mg/dL (7-18); CALCIUM 9.5 MG/DL (8.5-10.1); CARBON DIOXIDE 29 MMOL/L (21-32); CHLORIDE 104 MMOL/L (98-107); CREATININE 1.6 MG/DL (0.55-1.30); POTASSIUM 3.8 MMOL/L (3.5-5.1); SODIUM 139 MMOL/L (136-145)
[2017-10-09 07:51] LABS: INR 1.2 (0.9-1.1)
[2017-10-09 08:00] VITALS: BP 100/71
[2017-10-09] MEDS: DULoxetine 30mg cap ORAL SCH (08:36)
[2017-10-09] MEDS: Lactobacillus-GG tablet ORAL SCH (08:36)
[2017-10-09] MEDS: Enoxaparin 100mg Inj SUBQ SCH (08:37)
[2017-10-09] MEDS: Spironolactone 25mg tab ORAL SCH (08:38)
[2017-10-09] MEDS: Docusate 100mg cap ORAL SCH (08:38)
[2017-10-09] MEDS: Carvedilol 6.25mg Tab ORAL SCH (08:38)
[2017-10-09] MEDS: Imdur 30mg tab ORAL SCH (08:39)
--- NOTE | 2017-10-09 08:42 | Pulmonology Progress Note ---
Assessment/Plan Assessment/Plan ASSESSMENT: * RLL opacity - IMPROVED * CHF with ADHF * Possible LV thrombus * Faint b GG nodular opacities * KEELY on CKD * DM * HTN PLAN: * Optimize pulmonary hygiene/mobilize as tolerated * Titrate down FiO2 to keep SaO2 > 90% * Observe off Abx * Monitor volumes and renal function, diuresis as tolerated * Repeat CT chest in 3 months to evaluate faint BiB GGO's * Monitor effusion * Continue A/C - coumadin with LMWH bridge * F/U cards recs * Aspiration precautions * Stable form a pulmonary standpoint for D/C home with HH or SNF Terence Donato MD Subjective Allergies: Coded Allergies: No Known Allergies (Unverified , 09/28/17) Subjective KASSIDY, AFVSS, stable on RA No SOB, no cough, no wheezing, no CP, no F/C Objective Last 24 Hour Vital Signs Date Time Temp Pulse Resp B/P (MAP) Pulse Ox O2 Delivery O2 Flow Rate FiO2 10/09/17 08:39 100/57 10/09/17 08:38 99 100/57 10/09/17 06:20 112/78 10/09/17 04:00 97.6 90 20 112/78 (89) 99 97.6 10/09/17 04:00 93 10/09/17 00:00 98.0 94 20 98/69 (79) 99 98.0 10/09/17 00:00 96 10/08/17 21:07 115 121/85 10/08/17 21:06 121/85 10/08/17 21:00 Room Air 10/08/17 20:00 115 10/08/17 19:38 98.1 115 20 121/85 (97) 99 98.1 10/08/17 16:00 98.2 105 20 118/85 (96) 98 98.2 10/08/17 16:00 110 10/08/17 13:34 126/84 10/08/17 12:00 98.3 108 20 115/82 (93) 98 98.3 10/08/17 12:00 109 10/08/17 09:00 Room Air Intake and Output 10/08/17 10/09/17 19:00 07:00 Intake Total 570 ml Balance 570 ml Intake Oral 450 ml Other 120 ml # Voids 4 3 # Bowel Movements 1 General Appearance: WD/WN, no acute distress HEENT: normocephalic, atraumatic, anicteric, mucous membranes moist Respiratory/Chest: chest wall non-tender, lungs clear, normal breath sounds, no respiratory distress, no accessory muscle use Cardiovascular: normal peripheral pulses, normal rate, regular rhythm Abdomen: normal bowel sounds, soft, non tender, no organomegaly, non distended , no mass Extremities: no cyanosis, no clubbing, no edema Laboratory Tests 10/09/17 06:30: White Blood Count 3.5L, Red Blood Count 4.42, Hemoglobin 13.2, Hematocrit 41.2, Mean Corpuscular Volume 93, Mean Corpuscular Hemoglobin 30.0, Mean Corpuscular Hemoglobin Concent 32.1, Red Cell Distribution Width 15.8H, Platelet Count 278, Mean Platelet Volume 7.8, Neutrophils (%) (Auto) 51.8, Lymphocytes (%) (Auto) 33.1, Monocytes (%) (Auto) 8.8, Eosinophils (%) (Auto) 5.4H, Basophils (%) (Auto ) 0.9, Prothrombin Time 12.5H, Prothromb Time International Ratio 1.2H, Sodium Level 139, Potassium Level 3.8, Chloride Level 104, Carbon Dioxide Level 29, Anion Gap 6, Blood Urea Nitrogen 8, Creatinine 1.6H, Estimat Glomerular Filtration Rate 41.0, Glucose Level 89, Calcium Level 9.5 Current Medications Medications (Trade) Dose Ordered Sig/Sonam Route PRN Reason Start Time Stop Time Status Last Admin Dose Admin Acetaminophen (Tylenol) 650 mg Q6HR PRN ORAL Mild Pain (Pain Scale 1-3) 09/29/17 03:30 10/29/17 03:29 09/29/17 12:23 Alprazolam (Xanax) 0.25 mg Q6H PRN ORAL For Anxiety 10/03/17 14:30 10/10/17 14:29 Carvedilol (Coreg) 6.25 mg EVERY 12 HOURS ORAL 10/04/17 21:00 11/03/17 20:59 10/08/17 21:07 Dextrose (Dextrose 50%) 25 ml STAT PRN IV Hypoglycemia 09/29/17 03:30 10/29/17 03:29 Dextrose (Dextrose 50%) 50 ml STAT PRN IV Hypoglycemia 09/29/17 03:30 10/29/17 03:29 Docusate Sodium (Colace) 100 mg TWICE A DAY ORAL 10/01/17 18:00 10/31/17 17:59 10/06/17 09:28 Duloxetine HCl (Cymbalta) 30 mg DAILY ORAL 10/02/17 09:00 11/01/17 08:59 10/09/17 08:36 Enoxaparin Sodium (Lovenox) 90 mg EVERY 12 HOURS SUBQ 10/03/17 21:00 11/02/17 20:59 10/09/17 08:37 Folic Acid (Folate) 2 mg DAILY ORAL 10/03/17 09:00 11/02/17 08:59 10/09/17 08:36 Hydralazine HCl (Apresoline) 10 mg Q6HR PRN ORAL For High Blood Pressure 09/29/17 03:30 10/29/17 03:29 Hydralazine HCl (Apresoline) 25 mg Q8HR ORAL 10/04/17 14:00 11/01/17 17:59 10/09/17 06:20 Insulin Aspart (NovoLOG) BEFORE MEALS AND HS SUBQ 09/29/17 06:30 10/29/17 06:29 10/08/17 21:03 Isosorbide Mononitrate (Imdur) 30 mg DAILY ORAL 09/29/17 12:00 10/29/17 11:59 10/07/17 09:09 Lactobacillus Acidophilus (Culturelle) 1 tab TWICE A DAY ORAL 09/29/17 18:00 10/29/17 17:59 10/09/17 08:36 Metolazone (Zaroxolyn) 10 mg BID ORAL 10/04/17 18:00 11/01/17 08:59 10/09/17 08:38 Ondansetron HCl (Zofran) 4 mg Q4HR PRN IVP Nausea & Vomiting 09/29/17 03:30 10/29/17 03:29 Potassium Chloride (K-Dur) 40 meq TID ORAL 10/07/17 18:00 11/02/17 08:59 10/09/17 08:36 Quetiapine Fumarate (SEROquel) 50 mg BEDTIME ORAL 10/08/17 21:00 11/07/17 20:59 10/08/17 21:07 Spironolactone (Aldactone) 25 mg DAILY ORAL 10/05/17 09:00 11/04/17 08:59 10/09/17 08:38 Warfarin Sodium (Coumadin per pharmacy) 1 ea DAILY PRN MISC Per rx protocol 10/05/17 09:00 11/04/17 08:59 Warfarin Sodium (Coumadin) 10 mg COUMADIN ONCE ORAL 10/09/17 17:00 10/09/17 17:01 Terence Donato MD Oct 09, 2017 08:42
--- NOTE | 2017-10-09 11:33 | Nephrology Progress Note ---
Assessment/Plan Problem List: (1) CKD (chronic kidney disease) (2) Acute exacerbation of CHF (congestive heart failure) (3) Cardiomyopathy (4) Proteinuria (5) Hypertension Assessment - stable from renal stand - KEELY - suspect superimposed on CKD CKD likely due to DM & or HTN Patient has 3+ Proteinuria - Refuses meds and uncoaporative at times - CHF exacerbation, acute on chronic systolic heart failure, EF < 30 % - due to med non compliance - increased apical echo possible lv thrombus - Pleural effusion - on TTE, due to CHF - Possible RLL PNA - on CXR, ? effusion vs infiltrate - Possible UTI - dirty catch - DM2 - HTN Systemic & Pulmonary - Non compliance with Meds - TR and MR Plan K supplement- as needed mag IV given Adjust doses of Coreg and Hydralazine PO Zaroxolyn Optimize cardiac status Avoid Nephrotoxics Monitor renal parameters Keep BP and BS in check DC planning? Per orders Subjective ROS Limited/Unobtainable: No Constitutional: Reports: malaise Objective Objective Last 24 Hour Vital Signs Date Time Temp Pulse Resp B/P (MAP) Pulse Ox O2 Delivery O2 Flow Rate FiO2 10/09/17 09:00 Room Air 10/09/17 08:39 100/57 10/09/17 08:38 99 100/57 10/09/17 08:00 101 10/09/17 08:00 97.9 99 20 100/71 (81) 97 97.9 10/09/17 06:20 112/78 10/09/17 04:00 97.6 90 20 112/78 (89) 99 97.6 10/09/17 04:00 93 10/09/17 00:00 98.0 94 20 98/69 (79) 99 98.0 10/09/17 00:00 96 10/08/17 21:07 115 121/85 10/08/17 21:06 121/85 10/08/17 21:00 Room Air 10/08/17 20:00 115 10/08/17 19:38 98.1 115 20 121/85 (97) 99 98.1 10/08/17 16:00 98.2 105 20 118/85 (96) 98 98.2 10/08/17 16:00 110 10/08/17 13:34 126/84 10/08/17 12:00 98.3 108 20 115/82 (93) 98 98.3 10/08/17 12:00 109 Intake and Output 10/08/17 10/09/17 19:00 07:00 Intake Total 570 ml Balance 570 ml Intake Oral 450 ml Other 120 ml # Voids 4 3 # Bowel Movements 1 Laboratory Tests 10/09/17 06:30: White Blood Count 3.5L, Red Blood Count 4.42, Hemoglobin 13.2, Hematocrit 41.2, Mean Corpuscular Volume 93, Mean Corpuscular Hemoglobin 30.0, Mean Corpuscular Hemoglobin Concent 32.1, Red Cell Distribution Width 15.8H, Platelet Count 278, Mean Platelet Volume 7.8, Neutrophils (%) (Auto) 51.8, Lymphocytes (%) (Auto) 33.1, Monocytes (%) (Auto) 8.8, Eosinophils (%) (Auto) 5.4H, Basophils (%) (Auto ) 0.9, Prothrombin Time 12.5H, Prothromb Time International Ratio 1.2H, Sodium Level 139, Potassium Level 3.8, Chloride Level 104, Carbon Dioxide Level 29, Anion Gap 6, Blood Urea Nitrogen 8, Creatinine 1.6H, Estimat Glomerular Filtration Rate 41.0, Glucose Level 89, Calcium Level 9.5 Height (Feet): 5 Height (Inches): 7.00 Weight (Pounds): 186 General Appearance: no apparent distress Objective no other changes Kelton Byrne MD Oct 09, 2017 11:33
--- NOTE | 2017-10-09 11:42 | General Progress Note ---
Assessment/Plan Status: stable, progressing Assessment/Plan MDD Encephalopathy -Cymbalta 30mg qam -Seroquel 50mg qhs -provided ro/st -Xanax prn Subjective Date patient seen: Oct 09, 2017 Neurologic/Psychiatric: Reports: anxiety, depressed, emotional problems Allergies: Coded Allergies: No Known Allergies (Unverified , 09/28/17) Subjective the pt is doing well cooperative Objective Last 24 Hour Vital Signs Date Time Temp Pulse Resp B/P (MAP) Pulse Ox O2 Delivery O2 Flow Rate FiO2 10/09/17 09:00 Room Air 10/09/17 08:39 100/57 10/09/17 08:38 99 100/57 10/09/17 08:00 101 10/09/17 08:00 97.9 99 20 100/71 (81) 97 97.9 10/09/17 06:20 112/78 10/09/17 04:00 97.6 90 20 112/78 (89) 99 97.6 10/09/17 04:00 93 10/09/17 00:00 98.0 94 20 98/69 (79) 99 98.0 10/09/17 00:00 96 10/08/17 21:07 115 121/85 10/08/17 21:06 121/85 10/08/17 21:00 Room Air 10/08/17 20:00 115 10/08/17 19:38 98.1 115 20 121/85 (97) 99 98.1 10/08/17 16:00 98.2 105 20 118/85 (96) 98 98.2 10/08/17 16:00 110 10/08/17 13:34 126/84 10/08/17 12:00 98.3 108 20 115/82 (93) 98 98.3 10/08/17 12:00 109 Intake and Output 10/08/17 10/09/17 19:00 07:00 Intake Total 570 ml Balance 570 ml Intake Oral 450 ml Other 120 ml # Voids 4 3 # Bowel Movements 1 Laboratory Tests 10/09/17 06:30: White Blood Count 3.5L, Red Blood Count 4.42, Hemoglobin 13.2, Hematocrit 41.2, Mean Corpuscular Volume 93, Mean Corpuscular Hemoglobin 30.0, Mean Corpuscular Hemoglobin Concent 32.1, Red Cell Distribution Width 15.8H, Platelet Count 278, Mean Platelet Volume 7.8, Neutrophils (%) (Auto) 51.8, Lymphocytes (%) (Auto) 33.1, Monocytes (%) (Auto) 8.8, Eosinophils (%) (Auto) 5.4H, Basophils (%) (Auto ) 0.9, Prothrombin Time 12.5H, Prothromb Time International Ratio 1.2H, Sodium Level 139, Potassium Level 3.8, Chloride Level 104, Carbon Dioxide Level 29, Anion Gap 6, Blood Urea Nitrogen 8, Creatinine 1.6H, Estimat Glomerular Filtration Rate 41.0, Glucose Level 89, Calcium Level 9.5 Height (Feet): 5 Height (Inches): 7.00 Weight (Pounds): 186 General Appearance: no apparent distress, alert Neurologic: oriented x 3, responsive, depressed affect Peggy Rodas MD Oct 09, 2017 11:42
[2017-10-09 12:00] VITALS: BP 95/66
[2017-10-09 12:58] VITALS: BP 95/65
[2017-10-09] MEDS ORDERED: COREG6.25 MG ORAL (13:44)
[2017-10-09] MEDS ORDERED: APRESOLINE10 MG ORAL (13:44)
[2017-10-09] MEDS ORDERED: NOVOLOG100 UNITS1 SUBQ (13:44)
[2017-10-09] MEDS ORDERED: ALDACTONE25 MG ORAL (13:44)
[2017-10-09] MEDS ORDERED: COUMADIN10 MG ORAL (13:44)
[2017-10-09] MEDS ORDERED: DOK100 M1 ORAL (13:44)
[2017-10-09] MEDS ORDERED: ZAROXOLYN2.5 MG ORAL (13:44)
[2017-10-09] MEDS ORDERED: LOVENOX10 M3 SUBQ (13:44)
[2017-10-09] MEDS ORDERED: HYDRALAZINE HCL25 M1 ORAL (13:44)
[2017-10-09] MEDS ORDERED: ISOSORBIDE MONO30 M1 ORAL (13:44)
[2017-10-09] MEDS ORDERED: Warfarin Sodium 10mg ORAL ONE (15:31)
[2017-10-09] MEDS ORDERED: NS 275ml ONE (16:09)
[2017-10-09] MEDS ORDERED: Carvedilol 6.25mg Tab ORAL SCH (21:00)
[2017-10-10] MEDS ORDERED: Spironolactone 25mg tab ORAL SCH (09:00)
[2017-10-10] MEDS ORDERED: Imdur 30mg tab ORAL SCH (09:00)
--- NOTE | 2017-10-11 14:07 | Discharge Summary ---
Discharge Summary Hospital Course Date of Admission Sep 29, 2017 at 01:55 Date of Discharge Oct 09, 2017 at 16:10 Admitting Diagnosis CHF exacerbation HPI Jennifer Crews is a 51 year old female who was admitted on Sep 29, 2017 at 01:55 for Congestive Hearrt Failure Exacerbation Is a 51-year-old female with a history high blood pressure and CHF. She presents with chief complaint of weakness and leg swelling. She said she can't walk because of the swelling. His been ongoing for 4 months. Worse to the point where she can't move around anymore. She was admitted to [facility] recently and transferred to a care home. She was then discharged home. She has not been taking her medication at all. Denies any fever chills. Denies any chest pain. Worse with any bleeding. She refused to take Lasix because it caused her leg to swell up. Pain is 10 out of 10. Consultations Cardiology, Pulmonology, Nephrology Procedures none Hospital Course Patient presented for bilateral lower extremity leg swelling. Bilateral venous duplex was negative for DVT. On echo, patient was noted to have less than 30% EF and a possible LV thrombus. Pleural effusion was also noted on TTE and CXR showed possible RLL PNA. Pulmonology and cardiology were consulted. Patient was started on warfarin with lovenox to bridge therapy. Patient was also started on diuretics and was noted to go into KEELY and nephrology was consulted. Diuretics were managed further as creatinine trended down. Patient was also started on IV ceftriaxone and azithromycin and was given a total 10 day course. Patient's troponins were noted to be elevated, but stable. Per cardiology, no need for cath at this time. Patient was further stabilized and continued on lovenox and warfarin for INR goal of 2-3. Patient was discharged to SNF with continued daily monitoring of PT/INR and medication/coumadin adjustment. Patient was noted to leave with INR of 1.2. Patient was afebrile and hemodynamically stable for discharge and was discharged to SNF. Discharge Medications New Medications: Carvedilol (Coreg) 6.25 Mg Tablet 6.25 MG ORAL EVERY 12 HOURS for 30 Days, #60 TAB Docusate Sodium (Dok) 100 Mg Capsule 100 MG ORAL TWICE A DAY for 30 Days, #60 CAP Enoxaparin* (Lovenox*) 100 Mg/Ml Inj 90 MG SUBQ EVERY 12 HOURS for 2 Days, #4 EA Hydralazine HCl (Hydralazine HCl) 10 Mg Tablet 10 MG ORAL Q6HR PRN for 30 Days, #30 TAB Hydralazine Hcl* (Hydralazine Hcl*) 25 Mg Tablet 25 MG ORAL Q8HR for 30 Days, #90 TAB Insulin Aspart (Novolog Flexpen) 100 Unit/1 Ml Insuln.pen 0 UNITS SUBQ BEFORE MEALS AND HS for 30 Days, #30 EA Isosorbide Mononitrate (Isosorbide Mononitrate Er) 30 Mg Tab.er.24h 30 MG ORAL DAILY for 30 Days, #30 TAB Metolazone (Metolazone) 2.5 Mg Tablet 10 MG ORAL BID for 30 Days, #60 TAB Spironolactone (Aldactone) 25 Mg Tablet 50 MG ORAL DAILY for 30 Days, #30 TAB Warfarin Sod* (Coumadin*) 10 Mg Tablet 10 MG ORAL COUMADIN for 30 Days, #30 TAB Discharge Condition Upon Discharge: stable Discharge Disposition Patient was discharged to SNF, [facility] Discharge Diagnoses: (1) LV (left ventricular) mural thrombus (2) KEELY (acute kidney injury) (3) Acute on chronic systolic (congestive) heart failure (4) PNA (pneumonia) (5) DM2 (diabetes mellitus, type 2) (6) HTN (hypertension) (7) Hypokalemia Reyna Buenrostro NP Oct 11, 2017 14:07
== END 2017-10-09 16:10 | DRG 291 ==
LOC: EDBD 21:16 → EMR 22:33 → EDBEDREQ 09-29 01:18 → 2E 09-29 01:55
DX: I13.0 Hypertensive heart and chronic kidney disease with heart failure and stage 1 through stage 4 chronic kidney disease, or unspecified chronic kidney disease (principal); G93.40 Encephalopathy, unspecified; I50.23 Acute on chronic systolic (congestive) heart failure; J18.9 Pneumonia, unspecified organism; N17.9 Acute kidney failure, unspecified; N39.0 Urinary tract infection, site not specified; I47.1 Supraventricular tachycardia; N18.9 Chronic kidney disease, unspecified; E11.22 Type 2 diabetes mellitus with diabetic chronic kidney disease; I25.2 Old myocardial infarction; Z91.14 Patient's other noncompliance with medication regimen; I27.20 Pulmonary hypertension, unspecified; F32.9 Major depressive disorder, single episode, unspecified; I34.0 Nonrheumatic mitral (valve) insufficiency; I36.1 Nonrheumatic tricuspid (valve) insufficiency; E87.6 Hypokalemia; I51.3 Intracardiac thrombosis, not elsewhere classified
CPT/HCPCS: 36415; 71045; 71250; 80048; 80053; 80061; 80307; 81003; 82248; 82550; 82553; 82607; 82728; 82746; 82962; 82977; 83036; 83540; 83550; 83735; 83880; 84100; 84443; 84484; 84550; 85025; 85610; 85730; 86140; 87086; 89050; 93005; 93306; 93971; J1815; J8499